=== PATIENT | male | born 1950 | race Caucasian/White ===

== ENCOUNTER 2017-09-11 10:57 | Inpatient (IN) | payer OTHER ==
[2017-09-11] MEDS ORDERED: Etomidate* 2 MG/ML 20 ML VIAL (40 MG) ONE (11:02)
[2017-09-11] MEDS ORDERED: Succinylcholine* 20 MG/ML 10 ML VIAL ONE (11:03)
[2017-09-11] MEDS ORDERED: Etomidate* 2 MG/ML 10 ML VIAL IV ONE (11:15)
[2017-09-11] MEDS ORDERED: Succinylcholine* 20 MG/ML 10 ML VIAL IV ONE (11:15)
[2017-09-11] MEDS ORDERED: Propofol* 100 ML ONE (11:20)
[2017-09-11] MEDS ORDERED: NS 0.9% 1000 ML* 1,000 ML IV ONE (11:21)
[2017-09-11] MEDS ORDERED: Piperacillin/Tazobac ADVAN(*) 3.375 GM in NS 0.9% 100 ML* 100 ML IVPB ONE (11:29)
[2017-09-11 11:48] LABS: Urine Appearance Cloudy; Urine Blood 1+ (Negative); Urine Color Yellow; Urine Ketones Negative (Negative); Urine Protein 2+(100 mg/dL) (Negative); Urine Specific Gravity 1.017 (1.010-1.030); Urine Urobilinogen Negative (Negative)
[2017-09-11] MEDS ORDERED: Propofol* 500 MG/50 ML BTL IV SCH (12:00)
[2017-09-11] MEDS ORDERED: Norepinephrine 16MCG/ML IVPRE* 4,000 MCG/250 ML BAG IV ONE ×2 (12:03→16:50)
--- NOTE | 2017-09-11 12:23 | RAD ---
HISTORY: Altered mental status COMPARISONS: None VIEWS: 1: frontal portable view of the chest at 11:56 AM FINDINGS: LINES AND TUBES: An endotracheal tube is noted with the tip overlying the trachea between at the level of the clavicles.. A gastric tube is noted, with the tip in the left upper quadrant in a prepyloric position.. CARDIOMEDIASTINAL SILHOUETTE: The cardiomediastinal silhouette is normal for portable technique. PLEURA: The costophrenic angles are sharp. No pleural abnormalities are noted. LUNG PARENCHYMA: The lungs are clear. ABDOMEN: The upper abdomen is clear. There is no subphrenic gas. BONES AND SOFT TISSUES: No bone or soft tissue abnormalities are noted. IMPRESSION: LINES AND TUBES ABOVE. NO ACTIVE CARDIOPULMONARY DISEASE.
[2017-09-11 12:53] LABS: ABS Basophils 0.1 10^3/ul (0-0.2); ABS Eosinophils 0 10^3/ul (0-0.6); ABS Lymphocytes 0.9 10^3/ul (1.0-4.8); ABS Monocytes 1.1 10^3/ul (0-0.8); ABS Neutrophils 12.1 10^3/ul (1.5-7.7); ABS Nucleated RBC 0.08 10^3/ul; Eosinophil % 0.1 % (0-6); Hematocrit 45 % (42-52); Lymphocyte % 6.3 % (25-47); Mean Corpuscular HGB Conc 31 g/dl (31-36); Mean Corpuscular Hemoglobin 31 pg (27-31); Mean Corpuscular Volume 99 fL (80-94); Mean Platelet Volume 9 um3 (7.4-10.4); Nucleated Red Blood Cells % 0.6; Platelet Count 155 10^3/ul (150-450); Red Blood Count 4.51 10^6/ul (4.0-5.4); Red Cell Distribution Width 16 % (10.5-15); White Blood Count 14.2 10^3/ul (3.5-10.8)
[2017-09-11] MEDS ORDERED: NS 0.9% 1000 ML* 2,000 ML IV ONE (12:57)
[2017-09-11] MEDS ORDERED: Vancomycin(*) 1,500 MG in NS 0.9% 250 ML* 250 ML IVPB ONE (13:05)
[2017-09-11] MEDS ORDERED: Naloxone* 0.4 MG/ML 10 ML VIAL ONE (13:38)
--- NOTE | 2017-09-11 14:04 | RAD ---
HISTORY: Unresponsive COMPARISONS: None TECHNIQUE: Multiple contiguous axial CT scans were obtained of the head without intravenous contrast. FINDINGS: HEMORRHAGE/INFARCT: There is no hemorrhage or acute infarct. MASSES/SHIFT: There is no mass or shift. EXTRA-AXIAL SPACES: There are no extra-axial fluid collections. SULCI AND VENTRICLES: The sulci and ventricles are normal in size and position for the patient's stated age. CEREBRUM: There are no focal parenchymal abnormalities. BRAINSTEM: There are no focal parenchymal abnormalities. CEREBELLUM: There are no focal parenchymal abnormalities. VESSELS: The vessels are grossly normal. PARANASAL SINUSES: There is mucosal thickening of the ethmoid air cells ORBITS: There is bilateral proptosis. BONES AND SOFT TISSUE: No bone or soft tissue abnormalities are noted. OTHER: None IMPRESSION: NO ACUTE INTRACRANIAL PATHOLOGY. BILATERAL PROPTOSIS.
--- NOTE | 2017-09-11 14:36 | RAD ---
INDICATION: Altered mental status abdominal distention and recent hiatal hernia repair, chest mass. COMPARISON: Comparison is made with a prior chest x-ray study from September 11, 2017. TECHNIQUE: A CT scan of the chest, abdomen and pelvis was performed without intravenous or oral contrast. Contiguous axial sections were obtained from the lung apices through the symphysis pubis. Images were reconstructed in the coronal and sagittal planes. FINDINGS: There is moderate to severe centrilobular emphysematous change most prominent in the upper lobes. There appears to be mild volume loss in the right lower lobe. There is a mass in the right hilum which is now well-defined on this noncontrast study measuring approximately 2.8 x 2.6 cm in size. There are slightly enlarged lymph nodes in the superior posterior portion of the mediastinum adjacent to the esophagus on the right side measuring up to 1.2 cm in size. There are multiple enlarged retrocrural lymph nodes measuring up to 1.3 cm in size. The heart is within normal limits in size. There are coronary artery calcifications present. No pericardial effusion is seen. The thoracic aorta is normal in caliber. The patient is status post intubation. There is a central venous catheter in the left side. The catheter tip projects in the right paratracheal region. There is a small amount of air within the anterior chest wall on both sides. The liver is slightly heterogeneous, mildly enlarged and decreased in attenuation consistent with fatty infiltration. There is a ill-defined 2.1 x 2.5 cm area of mild relative increased density in the anterior portion of the right hepatic lobe which may represent focal sparing versus a mass. The spleen is within normal limits in size. No calcific gallstones are noted. The pancreas appears to be within normal limits. There is a solid 3.0 x 2.7 cm mass within the left adrenal gland. The right and left adrenal gland appears normal. The kidneys are normal in size. No renal calculi or hydronephrosis is seen. There is a Rogers catheter within the urinary bladder which is decompressed. There appears to be mild bladder wall thickening present. The aorta is normal in caliber and there is moderate calcific plaque present. There are multiple large retrocrural lymph nodes and multiple enlarged retroperitoneal lymph nodes present in the upper and mid abdomen measuring up to 1.8 cm in transverse dimension. There is a nasogastric tube coiled within the stomach. The stomach, small and large bowel appear nondistended. There is mild descending and sigmoid diverticulosis. There is no evidence for diverticulitis or colitis. There is a periumbilical hernia containing fat. No free intraperitoneal air or fluid is seen. No significant focal osseous abnormality is seen. IMPRESSION: 1. RIGHT HILAR MASS. 2. ENLARGED MEDIASTINAL AND RETROCRURAL LYMPH NODES. 3. ENLARGED RETROPERITONEAL LYMPH NODES. 4. MILDLY ENLARGED HETEROGENEOUS LIVER WITH FATTY INFILTRATION AND POSSIBLE MASS VERSUS FOCAL SPARING. RECOMMEND A CONTRAST-ENHANCED CT OF THE CHEST, ABDOMEN AND PELVIS FOR FURTHER EVALUATION. 5. LEFT ADRENAL MASS. 6. MODERATE TO SEVERE EMPHYSEMATOUS CHANGE. 7. ANTERIOR ABDOMINAL WALL HERNIA CONTAINING FAT.
[2017-09-11] MEDS ORDERED: Norepinephrine VIAL* 4 MG in NS 0.9% 250 ML* 246 ML IV SCH (15:00)
[2017-09-11] MEDS ORDERED: methylPREDNISolone 125 MG* 2 ML VIAL IV ONE (15:34)
--- NOTE | 2017-09-11 15:34 | PN ---
Progress Note - Progress Note Date of Service: 09/11/17 Note: Arterial Line Procedure Note Indication: hypotension/shock Consent was emergent - Prior labs/history was reviewed prior to procedure - Full sterile precautions with chlorhexidine/full drapes/gowns/gloves utilized - right radial artery visualized with US - Vessel accessed with return of pulsatile blood. 1 attempt was made to access vessel. A cathetor was threaded over wire into vessel. Good arterial waveform was observed on monitor. - Arterial Catheter was sutured to site - Adequate hemostasis was achieved, EBL 1 cc No immediate complications noted, patient tolerated procedure well. Dressing applied to site. Gucci Frost MD Information Assurance Engineer (electronically signed)
--- NOTE | 2017-09-11 15:55 | HP ---
H&P (Free Text) History and Physical: History and Physical - Critical Care History Limitation: pt unresponsive, history from ER and son. HPI: 66y M pmhx of tobacco use, cocaine use in the past, COPD; patient last seen the day before admission (yesterday 09/10). Today found in his home unresponsive. EMS called. Patient found to have pinpoint pupils, given narcan without effect. Manually bagged, pulse was present. He was brought to ER, found to be hypoxic to 70s, tachycardic, with initial BP >110. He was unresponsive, intubated for airway protection. Shortly after hypotensive to 70s, given NS 3L bolus, started on levophed pressor support. Initial exam demonstrated pinpoint pupils, reactive to painful stimuli, cough+, gag+. Mottling noted on peripheral examination. No signs of trauma. Initial labs demonstrate only elevated WBC to 14, Cr 1.9. currently tachycardic but sinus rhythm. History from son obtained. He stated patient was arrogant, didnt tell them of anything. Did smoke marijuana but did cocaine in the past. No recent illness as per them. He was started on new medications by his primary care doctor. Noted medications they brought from home for patient. They also stated he may have Hep C also from what patients girlfriend told them. CT brain obtained no acute process CT abd/pelvis right hilar mass, mediastinal LN+, retroperitoneal LN+, enlarged liver with possible mass, left adrenal mass, mod-severe emphysematous changes, anterior abd hernia Currently in ICU now, on levophed. No sedation. Given etomidate/succ/prop for sedation during intubation only. Unchanged neuro exam. ROS: unable to obtain due to unresponsiveness. PMHx: tobacco use, marijuana use, past cocaine use, COPD, possible Hep C PSHx: unknwon Family History: unknown Social History: Alcohol-none as per family, Smoking-yes, Drug use-past cocaine use Allergies: Allergies Allergy/AdvReac Type Severity Reaction Status Date / Time Unable to Obtain Allergy Unverified 09/11/17 13:17 Home Medications: Albuterol HFA INHALER* [Ventolin HFA Inhaler*] 2 puff INH Q4H PRN 09/11/17 [ History Confirmed 09/11/17] Albuterol/Ipratropium NEB.SIVA* [Duoneb (Albuterol 2.5 MG/Ipratropium 0.5 MG)] 1 neb INH QID 09/11/17 [History Confirmed 09/11/17] Amoxicillin/Clavulanate TAB* [Augmentin TAB 875*] 875 mg PO Q12HR 09/11/17 [ History Confirmed 09/11/17] Benazepril (NF) [Lotensin (NF)] 10 mg PO DAILY 09/11/17 [History Confirmed 09/11] Budesonide/Formote 160/4.5(NF) [Symbicort 160/4.5 (NF)] 2 puff INH BID 09/11/17 [History Confirmed 09/11/17] Elastic Bandages & Supports [Abdominal Binder/Elastic/] 1 mis TOPICAL DAILY PRN 09/11/17 [History Confirmed 09/11/17] Tiotropium CAP.INH* [Spiriva CAP.INH*] 2 cap.inh INH DAILY 09/11/17 [History Confirmed 09/11/17] Tele: sinus rhythm, tachycardia Vitals: Vital Signs Temp 100.6 F 09/11/17 15:18 Pulse 105 09/11/17 15:18 Resp 26 09/11/17 15:18 BP 111/68 09/11/17 15:18 Pulse Ox 98 09/11/17 15:18 Intake & Output 09/10/17 09/11/17 09/11/17 18:59 06:59 18:59 Weight 198 lb 6.656 oz O2/Vent: AC 26/400/+10/60% Infusions: levophed at 7 mcg/min, 1/2 ns 75cc/hour Current Medications: Albuterol/Ipratropium (Duoneb (Albuterol 2.5 Mg/Ipratropium 0.5 Mg)) 1 neb INH Q4H ETELVINA Famotidine (Pepcid Iv*) 20 mg IV SLOW PU DAILY ETELVINA Heparin Sodium (Porcine) (Heparin Flush Picc/Ml/Cvc(*)) 0 ml FLUSH 0600,1800 ETELVINA PRN Reason: Protocol Norepinephrine Bitartrate 4 mg (/ Sodium Chloride) 250 mls @ 37.5 mls/hr IV Q6H ETELVINA PRN Reason: 10 MCG/MIN Last Admin: 09/11/17 15:54 Dose: 37.5 mls/hr Propofol (Diprivan*) 100 mls @ 5.4 mls/hr IV .(Initial Rate) ETELVINA; 10 MCG/KG/MIN PRN Reason: Protocol Piperacillin Sod/Tazobactam (Sod 3.375 gm/ Sodium Chloride) 100 mls @ 25 mls/ hr IVPB Q12H ETELVINA Sodium Chloride (Ns 0.45% 1000 Ml Bag*) 1,000 mls @ 75 mls/hr IV PER RATE ETELVINA Methylprednisolone Sodium Succinate (Solu-Medrol 125mg *) 60 mg IV Q8H ETELVINA Physical Exam: General: intubated, unresponsive; withdraws to painful stimuli. No apparent distress. Head: normocephalic, atraumatic HEENT: no pallor, no icterus, moist mucous membranes Neck: soft, supple, no jvd CVS: regular, tachycardic, no murmur Resp: diminished air entry bilaterally, scattered wheeze+, no rhales, no rhonchi Abdomen: soft, nondistended, bs+ Ext: pulses+, cool ext, 2+ bilateral LE edema. Skin: intact, no breakdown, no dryness Neuro: intubated, not sedated, unresponsive. Pinpoint pupils, reactive slightly. Cough+, gag+, corneal reflex+. Withdraws to painful stimuli. Reflexes brisk in all ext. Labs: Laboratory Results - last 24 hr 09/11/17 09/11/17 09/11/17 11:35 11:35 12:40 WBC RBC Hgb Hct MCV MCH MCHC RDW Plt Count MPV Neut % (Auto) Lymph % (Auto) Hubbard % (Auto) Eos % (Auto) Baso % (Auto) Absolute Neuts (auto) Absolute Lymphs (auto) Absolute Monos (auto) Absolute Eos (auto) Absolute Basos (auto) Absolute Nucleated RBC Nucleated RBC % Patient Temperature ABG pH ABG pH (Temp Correct) ABG pCO2 ABG pCO2 (Temp Corrct ABG pO2 ABG pO2 (Temp Correct ABG HCO3 ABG O2 Saturation ABG Base Excess Respiration Rate Ventilator Type Vent Mode FiO2 Inspiratory Time PEEP Pressure Support Pressure Control EPAP IPAP BiPAP Sodium 141 Potassium 4.9 Chloride 108 Carbon Dioxide 29 Anion Gap 4 BUN 27 H Creatinine 1.94 H Est GFR ( Amer) 45.0 Est GFR (Non-Af Amer) 35.0 BUN/Creatinine Ratio 13.9 Glucose 85 Lactic Acid Calcium 7.3 L Magnesium 2.0 Total Bilirubin 0.50 AST 58 H ALT 97 H Alkaline Phosphatase 46 Ammonia Total Creatine Kinase 75 Troponin I 0.16 H* B-Natriuretic Peptide Total Protein 5.8 L Albumin 3.0 L Globulin 2.8 Albumin/Globulin Ratio 1.1 TSH 1.51 Urine Color Yellow Urine Appearance Cloudy Urine pH 5.0 Ur Specific Percival 1.017 Urine Protein 2+(100 mg/dl) H Urine Ketones Negative Urine Blood 1+ H Urine Nitrate Negative Urine Bilirubin Negative Urine Urobilinogen Negative Ur Leukocyte Esterase Negative Urine WBC (Auto) 3+(>20/hpf) H Urine RBC (Auto) 2+(6-10/hpf) H Urine Bacteria 1+ H Hyaline Casts Present H Urine Glucose Negative Salicylates < 2.50 Urine Opiates Screen None detected Acetaminophen < 15 Ur Barbiturates Screen None detected Ur Phencyclidine Scrn None detected Ur Amphetamines Screen None detected U Benzodiazepines Scrn None detected Urine Cocaine Screen Presumptive positive H U Cannabinoids Screen Presumptive positive H Serum Alcohol < 10 09/11/17 09/11/17 09/11/17 12:40 12:40 12:40 WBC 14.2 H RBC 4.51 Hgb 14.0 Hct 45 MCV 99 H MCH 31 MCHC 31 RDW 16 H Plt Count 155 MPV 9 Neut % (Auto) 85.1 H Lymph % (Auto) 6.3 L Hubbard % (Auto) 7.9 Eos % (Auto) 0.1 Baso % (Auto) 0.6 Absolute Neuts (auto) 12.1 H Absolute Lymphs (auto) 0.9 L Absolute Monos (auto) 1.1 H Absolute Eos (auto) 0 Absolute Basos (auto) 0.1 Absolute Nucleated RBC 0.08 Nucleated RBC % 0.6 Patient Temperature ABG pH ABG pH (Temp Correct) ABG pCO2 ABG pCO2 (Temp Corrct ABG pO2 ABG pO2 (Temp Correct ABG HCO3 ABG O2 Saturation ABG Base Excess Respiration Rate Ventilator Type Vent Mode FiO2 Inspiratory Time PEEP Pressure Support Pressure Control EPAP IPAP BiPAP Sodium Potassium Chloride Carbon Dioxide Anion Gap BUN Creatinine Est GFR ( Amer) Est GFR (Non-Af Amer) BUN/Creatinine Ratio Glucose Lactic Acid 0.7 Calcium Magnesium Total Bilirubin AST ALT Alkaline Phosphatase Ammonia 53 Total Creatine Kinase Troponin I B-Natriuretic Peptide 333 H Total Protein Albumin Globulin Albumin/Globulin Ratio TSH Urine Color Urine Appearance Urine pH Ur Specific Percival Urine Protein Urine Ketones Urine Blood Urine Nitrate Urine Bilirubin Urine Urobilinogen Ur Leukocyte Esterase Urine WBC (Auto) Urine RBC (Auto) Urine Bacteria Hyaline Casts Urine Glucose Salicylates Urine Opiates Screen Acetaminophen Ur Barbiturates Screen Ur Phencyclidine Scrn Ur Amphetamines Screen U Benzodiazepines Scrn Urine Cocaine Screen U Cannabinoids Screen Serum Alcohol 09/11/17 14:20 WBC RBC Hgb Hct MCV MCH MCHC RDW Plt Count MPV Neut % (Auto) Lymph % (Auto) Hubbard % (Auto) Eos % (Auto) Baso % (Auto) Absolute Neuts (auto) Absolute Lymphs (auto) Absolute Monos (auto) Absolute Eos (auto) Absolute Basos (auto) Absolute Nucleated RBC Nucleated RBC % Patient Temperature Not Reportable ABG pH 7.11 L* ABG pH (Temp Correct) Not Reportable ABG pCO2 89 H* ABG pCO2 (Temp Corrct Not Reportable ABG pO2 385 H ABG pO2 (Temp Correct Not Reportable ABG HCO3 21.8 ABG O2 Saturation 98.8 H ABG Base Excess -3.8 L Respiration Rate 16 Ventilator Type 400 Vent Mode Not Reportable FiO2 100 Inspiratory Time 1.0 PEEP 8 Pressure Support Not Reportable Pressure Control Not Reportable EPAP Not Reportable IPAP Not Reportable BiPAP Not Reportable Sodium Potassium Chloride Carbon Dioxide Anion Gap BUN Creatinine Est GFR ( Amer) Est GFR (Non-Af Amer) BUN/Creatinine Ratio Glucose Lactic Acid Calcium Magnesium Total Bilirubin AST ALT Alkaline Phosphatase Ammonia Total Creatine Kinase Troponin I B-Natriuretic Peptide Total Protein Albumin Globulin Albumin/Globulin Ratio TSH Urine Color Urine Appearance Urine pH Ur Specific Percival Urine Protein Urine Ketones Urine Blood Urine Nitrate Urine Bilirubin Urine Urobilinogen Ur Leukocyte Esterase Urine WBC (Auto) Urine RBC (Auto) Urine Bacteria Hyaline Casts Urine Glucose Salicylates Urine Opiates Screen Acetaminophen Ur Barbiturates Screen Ur Phencyclidine Scrn Ur Amphetamines Screen U Benzodiazepines Scrn Urine Cocaine Screen U Cannabinoids Screen Serum Alcohol Imaging: Reviewed CT brain no acute findings CT abd/pelvis/chest right hilar mass, mediastinal LN+, retroperitoneal LN+, enlarged liver with possible mass, left adrenal mass, mod-severe emphysematous changes, anterior abd hernia cxr 09/11 no acute process noted, hilar fullness+, no congestion/infiltrate. Assessment: 66y M pmhx of tobacco use, cocaine use in the past, COPD; patient last seen the day before admission (yesterday 09/10). Today found in his home unresponsive. EMS called. Patient found to have pinpoint pupils, given narcan without effect. Manually bagged, pulse was present. He was brought to ER, found to be hypoxic to 70s, tachycardic, with initial BP >110. He was unresponsive, intubated for airway protection. Shortly after hypotensive to 70s, given NS 3L bolus, started on levophed pressor support. -Encephalopathy, metabolic/toxic vs ischemic vs global anoxic/hypoxic injury -Acute Hypercapneic and hypoxic respiratory failure; intubated 09/11 -Possible Acute COPD exacerbation -r/o underlying sepsis -Shock, distributive vs septic vs neurogenic -Renal insufficiency, acute? -Right lung hilar mass with adenopathy -Left adrenal mass -Substance abuse, cocaine+, marijuana+ Plan: Neuro- encephalopathy, multifactorial. CT negative. r/o other brain stem lesion. MRI now. some concern to rule out brain stem lesion. EEG now for r/o of subclinical seizure activity. So far appears negative at bedside. No improvement with narcan. May be hypercapnea related also after reviewed ABG now. Neurochecks. Off sedation, and will hold sedation. fall prec. Could this also be post ictal state? hypoxic injury from prolonged resp arrest/hypoxia? ammonia normal, salicylate neg. substance abuse history with cocaine+ urine drug screen; any synthetic drug use also? marijuana laced with other opiate like substances not appearing on drug screens? neurology consult. CVS- hypotensive, unclear etiology. ECHO being done. noted wbc elevation, no clear infectious source. distributive? hypovolemic? IVF 3L given, on levophed now. Monitor urine output. Empiric abx coverage. Mottling slowly improving. maintain MAP>65. Sinus tachy, regular. Resp- intubated. noted wheezing now. ABG with acute hypercapnea. May be some copd exaccerbation. This could have been a respiratory arrest from severe copd exaccerbation, hypoxia and causing his encephalopathy. Solumedrol 125mg iv x1 now, solumedrol 40mg iv q8h. Bronchodilators q4h RTC. Empiric Abx coverage. influenza swab to be sent also. Repeat ABG in 1 hour; vent settings made. peep at 10 now, noted air trapping and autopeep. Oxygenation improved. Noted right hilar mass and adenopathy, will need pulm w/u for possible malignancy. ID- wbc 14. temp rising slowly, now 100.1. blood cultures sent. sputum cultures if able. Empiric zosyn and vanco. Influenza swab to be sent. GI- NPO for now. GI prophylaxis. Renal- renal insuff. Acute? chronic? boles cathetor for strict i/o measurement. IVF 1/2NS infusion 75cc/hr. Maintain perfusion pressure with pressors. Urinalysis abnormal, send urine culture. Heme- hg stable. plt okay. no bleeding noted. DVT prophylaxis with SCDS. Chemical proph once bleeding ruled out. Endo- send hba1c, send tsh. Musculsk- pressure ulcer prophylaxis. bedrest. Wounds- none Nutrition- NPO for now DVT prophylaxis: SCDs GI prophylaxis: Pepcid iv Central Line: left IJ 09/11 Arterial Line: right radial 09/11 Boles Cathetor: yes Disposition: admit to icu for respiratory failure, encephalopathy expected length of stay >2 midnights. Code Status: full code Total Critical Care time is 60 minutes, excluding procedures/teaching Gucci Frost MD Motorcycle Racer (Electronically Signed)
[2017-09-11] MEDS ORDERED: NS 0.45% 1000 ML BAG* 1,000 ML IV SCH (16:00)
[2017-09-11] MEDS ORDERED: Terbutaline INJ* 1 MG/ML VIAL SUBCUT ONE (16:18)
[2017-09-11 17:39] LABS: INR 0.99 (0.77-1.02)
--- NOTE | 2017-09-11 19:00 | ECHO ---
Patient: JULES MARTINEZ Rec#: [id number] : 1950 Date: 09/11/2017 Age: 66y Height: 177.8 cm / 70.0 in Weight: 89.81 kg / 197.9 lbs Sex: M BSA: 2.08 Room#: ICU 12 Admit Date#: 09/11/2017 Type: Inpatient Referring: Gucci Frost Reading: Carloz Mensah MD Water Sponger: Mavis Veras RDCS,RDMS CC: Estefany Silva MD Transthoracic Echocardiogram Indication: Hypotension, Abnormal EKG BP: 96/38 HR: 126 Rhythm: Tachycardia Findings History: Smoker Technical Comments: The study quality is poor. The study is technically limited due to patient being intubated and on a ventilator. Left Ventricle: The left ventricular chamber size is decreased. Mild to moderate concentric left ventricular hypertrophy is observed. The left ventricle appears hyperdynamic. The estimated ejection fraction is greater than 65%. There is an E to A reversal in the mitral valve flow pattern suggestive of diastolic dysfunction. Left Atrium: The left atrial chamber size is normal. Right Ventricle: The right ventricle is mildly dilated. The right ventricular global systolic function is mildly reduced. Right Atrium: The right atrium is slightly dilated. Aortic Valve: There is no evidence of aortic valve thickening. Systolic excursion of the aortic valve is normal. There is no evidence of aortic regurgitation. There is no evidence of aortic stenosis. Mitral Valve: The mitral valve leaflets appear normal. There is no evidence of mitral regurgitation. There is no evidence of mitral stenosis. Tricuspid Valve: The tricuspid valve leaflets are normal. There is trace tricuspid regurgitation. There is evidence that pulmonary hypertension may be underestimated. Pulmonic Valve: There is no evidence of pulmonic valve thickening. There is no evidence of pulmonic regurgitation. Pericardium: There is no significant pericardial effusion. Aorta: The aortic root appears normal. The aortic arch is not well visualized. Pulmonary Artery: The main pulmonary artery is not well visualized. Venous: Unable to accurately comment on the size collapsibility of the IVC as the patient in known to be on mechanical ventilation. Conclusions The study quality is poor. The study is technically limited due to patient being intubated and on a ventilator. In general the images are suboptimal for accurate assessment. The left ventricular chamber size is decreased. Mild to moderate concentric left ventricular hypertrophy is observed. The left ventricle appears hyperdynamic. The estimated ejection fraction is greater than 65%. The right ventricle is mildly dilated. The right ventricular global systolic function is mildly reduced. The right atrium is slightly dilated. There is trace tricuspid regurgitation. No reports of prior studies are offered for comparison. Measurements Name Value Normal Range RVIDd (AP) 2D 3.4 cm (0.9 - 2.6) RVDdMajor (2D) 3.9 cm (2.2 - 4.4) RAd ISD 4CH 5.2 cm (3.4 - 4.9) RA (A4C)W 4.4 cm (2.9 - 4.6) IVSd (2D) 1.4 cm (0.6 - 1) LVPWd (2D) 1.4 cm (0.6 - 1) LVIDd (2D) 3.2 cm (3.6 - 5.4) LVIDs (2D) 2.3 cm - LV FS (2D) 28 % (25 - 45) Aortic Annulus 2 cm (1.4 - 2.6) Ao root diameter (2D) 3 cm (2.1 - 3.5) Ascending Ao 2.8 cm (2.1 - 3.4) LA dimension (AP) 2D 3.7 cm (2.3 - 3.8) LAd ISD 4CH 5.2 cm (2.9 - 5.3) LA ISD 4CH W 2.6 cm (2.5 - 4.5) Name Value Normal Range LA ESV SP 4CH (A/L) 23.21 ml - LA ESV SP 2CH (A/L) 70.09 ml - LA ESV BP (A/L) 42.03 ml - LA ESV BP (A/L) index 20 ml/m2 - LA ESV SP 4CH (MOD) 21.33 ml - LA ESV SP 2CH (MOD) 64.93 ml - Name Value Normal Range MV E-wave Vmax 0.6 m/sec - MV deceleration time 110 msec - MV A-wave Vmax 0.8 m/sec - MV E:A ratio 0.7 ratio - LV septal e' Vmax 0.05 m/sec - LV lateral e' Vmax 0.06 m/sec - LV E:e' septal ratio 9 ratio - LV E:e' lateral ratio 10 ratio - Name Value Normal Range AV Vmax 1.3 m/sec - AV VTI 20.2 cm - AV peak gradient 7 mmHg - AV mean gradient 4.3 mmHg - LVOT Vmax 1.2 m/sec - LVOT VTI 19 cm - LVOT peak gradient 6 mmHg - LVOT mean gradient 3 mmHg - Name Value Normal Range TR Vmax 2.6 m/sec - TR peak gradient 27 mmHg - RAP 15 mmHg - RVSP 42 mmHg - IVC diameter 2.8 cm - Name Value Normal Range PV Vmax 0.6 m/sec - PV peak gradient 1.4 mmHg -
[2017-09-11] MEDS: Albuterol/Ipratropium NEB.SOL* Albuterol 2.5 MG/Ipratropium 0.5 MG 3 ML INH SCH ×3 (19:08→23:27)
--- NOTE | 2017-09-11 20:57 | CONS ---
CONSULTATION REPORT: DATE OF CONSULT: 09/11/17 LOCATION: He is currently in ICU, bed 12. ATTENDING PHYSICIAN: Dr. Gucci Frost. PRIMARY CARE PHYSICIAN: Dr. Estefany Silva. REASON FOR CONSULT: Altered mental status. HISTORY OF PRESENT ILLNESS: The patient is unable to provide any history. There is no significant history in the chart. Most of my history was obtained speaking with the attending physician. Family was not available at the time that I saw him, but will in an attempt to find out more information. Presently what is known, he was apparently seen normal yesterday at some point. Today, he was found down in his place. It is unclear how long he was down. When he was found, he was apparently hypoxic. When EMS arrived, they did bag him on the way to the ER. In the ER, OG was placed. He was given Narcan with no improvement in his symptoms. Levophed was started for hypotension and titrated as necessary. He had initially a dose of Diprivan given as well as some succinylcholine in order to intubate him. Central line was attempted, but was unsuccessful. He was noted in the ER that he was having some response to pain, but was largely unresponsive otherwise. He apparently has a history of hepatitis C. In addition, he has a history of drug use including marijuana and cocaine use. He did test positive for both in the ER. Initial lab work also showed an elevated white count of 14.2 with 85.1 neutrophils, 6.3 lymphocytes. His creatinine on admission was 1.94, calcium was 7.3. Elevated liver enzymes of AST of 58, ALT of 97. Troponin was 0.16. His BNP was 333. TSH of 1.51. Blood gas showed pH of 7.11, PCO2 of 89, PO2 of 385, O2 saturation of 98.8. In the ER, a head CT was done, reviewed, showed no bleeding, no obvious intracranial abnormalities were appreciated, no significant hydrocephalus. Chest x-ray was done. No active cardiopulmonary disease. Finally a chest, abdomen, and pelvis CT was done, which showed right hilar mass, enlarged mediastinal and retrocrural lymph nodes, enlarged retroperitoneal lymph nodes, mildly enlarged heterogeneous liver with fatty infiltration and possible mass versus focal sparing, contrast-enhanced CT of the chest, abdomen, and pelvis recommended. Left adrenal mass noted, [id number] emphysematous changes , anterior abdominal wall hernia containing fat. In the ICU, he remains unresponsive. He is currently on Levophed for pressure support. He is intubated and there has been no significant improvement in his symptoms. EEG is at the bedside, preliminary reading shows no evidence of status. PAST MEDICAL HISTORY: As noted above. PAST SURGICAL HISTORY: Unknown. MEDICATIONS: His medications at home what is known is that he takes tiotropium and albuterol/ipratropium inhalers as well as Symbicort inhaler. It was listed that he also takes benazepril 10 mg p.o. q. day. Of note, he had testing done back in January of 2017, which showed Lyme positive. It is unclear whether he received any treatment at that time. ALLERGIES: Were unable to obtain. FAMILY HISTORY: Unknown. SOCIAL HISTORY: Apparently, he lives by himself. Drug use as noted above. He also smokes tobacco. Alcohol use is unknown. REVIEW OF SYSTEMS: In 14-organ systems cannot be obtained because of his mental status. PHYSICAL EXAM: Vital Signs: Temperature of 100.6, heart rate of 102 to 105, he is ventilated, O2 saturation 98%, and blood pressure 98/67 to 111/68, he is on pressor. General: In general, he is a well-developed, well-nourished gentleman lying in his hospital bed. He is intubated. He is unresponsive. HEENT : Normocephalic, atraumatic. Sclerae are anicteric. Mucous membranes are moist. ET tube in place. Neck: There are no carotid bruits. Chest: He has some diffuse wheezes bilaterally. Cardiovascular: Regular rate and rhythm. Abdomen: Obese. Extremities: He has mottling of his skin, some cyanosis in his toes bilaterally. On neurologic exam, he is largely unresponsive. He has very weak corneal reflexes, did react to nasal swab. He does gag with deep suction and cough. He has some minimal withdrawal to pain with some grimacing in all 4 extremities. DTRs were 2+ at the patellae bilaterally, trace at the ankles bilaterally, slightly upgoing toes on the left, equivocal on the right. DTRs in the upper extremities were 2+ and symmetric. The patient did not respond to sternal rub or supra-palpebral pressure. There is no spontaneous motor movement at this time. No tremors or seizure like activity noted. Doll' s eye, he was weakly positive. He did not blink to threat. DIAGNOSTIC STUDIES/LAB DATA: Lab work as noted above. In addition, UA showed 2 + protein, 1+ blood, 3+ whites, 2+ rbc's, 1+ bacteria, negative nitrites and esterase. Tox was positive for cocaine and cannabinoids. Serum alcohol less than 10. Acetaminophen less than 15. Salicylates less than 2.5. CT scan as noted above. ASSESSMENT AND PLAN: 1. Mr. Marin is a 66-year-old gentleman with a known history of hepatitis C with possibly hypertension suggested by his medicine, history of chronic obstructive pulmonary disease, history of tobacco use, also drug use tested positive for cannabinoids and cocaine, was apparently seen normal yesterday, was found down this morning, brought to the ER, hemodynamically unstable, was given Narcan with no response. Subsequently, intubated and put on pressors and he has remained largely unresponsive since his admission. There is no known seizure history and no reported seizure activity. The differential here would include seizures, either postictal state or status, but EEG shows no evidence of status at this point. We will continue to monitor him closely, watch for any seizure activity, consider propofol. 2. Anoxic injury. When he was found, his saturations were low. There was apparently no cardiopulmonary arrest, but certainly if he had been hypoxic for quite some time, he could have suffered more of a global hypoxic injury. Supportive care with close control of his respiratory status. 3. Sepsis is a possibility given his blood pressure and respiratory issues, aspiration pneumonia is a possibility, urosepsis is a possibility. He has been given some antibiotics and I refer to the primary ICU team regarding additional antibiotic use. My suspicion for an underlying encephalitis, meningitis is low at this point. I do not think a lumbar puncture would be of high yield, but we may consider it in the near future. 4. There is a possibility of stroke, specifically a brain stem stroke might cause symptoms like this. Plan is to get an MRI when he is stable to look for evidence of stroke, in the meantime supportive care. 5. Hilar mass. Unclear whether this is an incidental finding but certainly this needs to worked up in the near future. I do not suspect that it is directly related to his initial presentation today, but cancer/metastatic disease is certainly within the differential. 6. Drug use. It is quite possible that he could have taken something that does not show up on routine testing. At this point again, I would recommend conservative care, airway protection. Blood pressure support is necessary and give him time given his history of drug use is certainly a concern. 7. Lyme positivity in the past. My suspicion that this is related to his current presentation is low. Again, my suspicion for central nervous system infection is low at this point. I will continue to follow him and make further recommendations. At this point, the etiology of his symptoms remains cryptic. Thank you for the opportunity to participate in his care. [id number]/[facility] #: [id number] ESE
[2017-09-11] MEDS: Piperacillin/Tazobac ADVAN(*) 3.375 GM in NS 0.9% 100 ML* 100 ML IVPB SCH (22:06)
[2017-09-11] MEDS: Propofol* 100 ML IV SCH (22:06)
[2017-09-11] MEDS: Norepinephrine 16MCG/ML IVPRE* 4,000 MCG/250 ML BAG IV SCH (22:07)
[2017-09-12] MEDS: methylPREDNISolone 125 MG* 2 ML VIAL IV SCH ×3 (01:41→16:09)
[2017-09-12] MEDS: Propofol* 100 ML IV SCH ×7 (01:41→23:02)
[2017-09-12] MEDS: Norepinephrine 16MCG/ML IVPRE* 4,000 MCG/250 ML BAG IV SCH ×2 (01:41→08:07)
[2017-09-12] MEDS: Albuterol/Ipratropium NEB.SOL* Albuterol 2.5 MG/Ipratropium 0.5 MG 3 ML INH SCH ×6 (03:23→23:42)
--- NOTE | 2017-09-12 04:27 | EEG ---
ELECTROENCEPHALOGRAPHY: DATE OF STUDY: 09/11/17 - ROOM #ICU-12 LOCATION: The patient is an inpatient. ORDERING PHYSICIAN: Dr. Frost. HISTORY: This is a 66-year-old man who was found unresponsive at his home today. He was subsequently intubated in the ER. He was last seen to be normal sometime yesterday. He has a history of hepatitis C as well as cocaine and marijuana use. He has been having some upper body shaking movements and has not appeared to wake up despite no longer being on sedation while on the ventilator. EEG is requested to evaluate for status epilepticus. REPORT: The background failed to demonstrate the usual anterior to posterior voltage and frequency gradients expected of the waking or sleep background. The background consisted of diffuse, mixed frequency, polymorphic slowing in the 2 to 5 Hz range. The EEG was shown to be spontaneously reactive with emergence of some increased muscle artifact as well as some faster frequency activity. However, there were no evident anterior to posterior gradients noted during these times. During more sedated periods, there was some spindle-like activity noted over the bilateral frontocentral regions. The patient was noted to have a few episodes of tightening of his body with some tremoring and adduction of his shoulders. There was no EEG correlate to this activity. Throughout the recording, there were no epileptiform discharges or focal features. IMPRESSION: This is an abnormal EEG due to the lack of the expected background organization and diffuse mixed frequency slowing. However, the EEG retains reactivity. These findings are consistent with a diffuse, nonspecific encephalopathy of a moderate degree. There are no epileptiform abnormalities. Episodes of body tightening and shaking are nonepileptic in nature. [id number]/[facility] #: [id number] [facility]
[2017-09-12 06:20] LABS: Hematocrit 44 % (42-52); Hemoglobin 14.2 g/dl (14.0-18.0); Mean Corpuscular HGB Conc 33 g/dl (31-36); Mean Corpuscular Hemoglobin 31 pg (27-31); Mean Corpuscular Volume 96 fL (80-94); Mean Platelet Volume 9 um3 (7.4-10.4); Platelet Count 181 10^3/ul (150-450); Red Blood Count 4.55 10^6/ul (4.0-5.4); Red Cell Distribution Width 15 % (10.5-15); White Blood Count 14.2 10^3/ul (3.5-10.8)
[2017-09-12 06:41] LABS: EGFR Non-African American 38.2 (>60)
[2017-09-12] MEDS: Famotidine IV* 10 MG/ML 2 ML (20 mg) IV SLOW PU SCH (07:46)
--- NOTE | 2017-09-12 08:12 | RAD ---
HISTORY: Sepsis COMPARISONS: September 11, 2017 VIEWS: 1: frontal portable view of the chest at 5:55 AM. The patient is obliqued to the left. FINDINGS: LINES AND TUBES: An endotracheal tube is noted with the tip overlying the trachea between the clavicles and the lory. A gastric tube is noted. The tip is not well visualized secondary to technique. A left internal jugular venous catheter is noted with the tip overlying the expected location of the superior vena cava. CARDIOMEDIASTINAL SILHOUETTE: The cardiomediastinal silhouette is normal for portable technique. PLEURA: The costophrenic angles are sharp. No pleural abnormalities are noted. LUNG PARENCHYMA: The lungs are clear. ABDOMEN: The upper abdomen is clear. There is no subphrenic gas. BONES AND SOFT TISSUES: No bone or soft tissue abnormalities are noted. IMPRESSION: LINES AND TUBES ABOVE. NO ACTIVE CARDIOPULMONARY DISEASE.
[2017-09-12] MEDS ORDERED: Famotidine IV * 20 MG in NS 0.9% 100 ML* 100 ML IVPB SCH (09:00)
--- NOTE | 2017-09-12 09:21 | PN ---
PROGRESS NOTE: DATE OF PROGRESS NOTE: 09/12/17. CURRENT LOCATION: ICU 12, bed 1. SUBJECTIVE: Overnight, the patient continued to need Levophed for pressor support. His CVP did eleva te and he had some fluid adjustments made with improvement. He was placed on propofol, which was tit rated up overnight due to some agitation. He was kicking and flailing at times. The nurse at the [facility] stated that at one point when he was off propofol, he did squeeze fingers, he was moving his le gs more than his arms. He remains ventilated and this morning remains on Levophed 16 mcg. He was feb rile last night to 101.3 but the blankets were removed and his temperature slowly normalized. They w ere able to bring his O2 down to 50%. On propofol, he has no spontaneous movement and is not respons ishmael. This morning, we took him off of propofol. He was off for about 10 minutes with little change in his examination as noted below. No other new issues overnight. There was some supplemental histo ry per the nurse, apparently someone spoke with him the night before, and at that time he was noted t o be confused and not speaking correctly. He was found the next day unresponsive. It appears that he does have some lung issues. He is on inhalers. He is on prednisone. He is on antibiotic, but his detailed medical history remains unknown at this point. On physical examination, vital signs, temp of 98.4 this morning, has been afebrile since 1 o'clock th is morning. Heart rate of 92 to 100, respiratory rate of 28. O2 sat 96%. Blood pressures, arterial blood pressure 89/53 to 93/54 to 103/58 to 98/56 on Levophed. CVP 12, 13, 12 and 12. In general, everette parker is a well nourished, well developed gentleman, lying in his hospital bed. He is unresponsive, off propofol. He had pinpoint pupils that are nonreactive. No corneals. Did not cough this morning, bu t the nurse states that he was coughing overnight with deep suction. He did not respond to loud stim julito or painful sternal rub, suprapalpebral pressure. He did not withdraw to pain in his arms. He ford d some minimal withdrawal to pain in his legs bilaterally. DTRs in the patella were 2+. He had one beat of clonus bilaterally at the lower extremities. He had equivocal Babinski's bilaterally. DTRs in the upper extremities were absent bilaterally. He has no other spontaneous movements. No seizure like activity. No tremors or twitching noted. Doll's eye was negative. Studies, he had an EEG yesterday, which showed diffuse slowing with the lack of expected background o rganization; however, the EEG retains reactivity. Findings are consistent with diffuse nonspecific e ncephalopathy of a moderate degree. No epileptiform activities. He did have some body tightening an d shaking at times which were nonepileptic in nature. Transthoracic echocardiogram yesterday was poo r study, technically difficult. Images were suboptimal for accurate assessment. Estimated ejection f raction is greater than 65%. Left ventricle appears hyperdynamic. Mild to moderate concentric left ventricular hypertrophy. Right ventricle is mildly dilated. Right ventricle global systolic functio n is mildly reduced. Right atrium is slightly dilated. Trace tricuspid regurg. No prior studies. Chest x-ray is pending. Lab work includes white count of 14.2 this morning, MCV of 96. Otherwise normal. Blood gas this morn ing: pH is 7.21, PCO2 66, PO2 136. O2 saturation 98.8%. Chemistry this morning, complete metabolic profile: Creatinine 1.8, BUN of 35, creatinine is improved from yesterday. Hemoglobin A1c of yester day 5.7. Glucose of 191, calcium 7.7. Troponin peaked at 1.66. This morning is 1.20. MRI was cance led yesterday due to the patient's worsening condition. ASSESSMENT AND PLAN: Mr. Marin is a 66-year-old gentleman whose medical history is largely unknown, but appears to have some respiratory issues including chronic obstructive pulmonary disease. Per re port from the nurse, he was apparently on the phone the night before, he was found confused. He was found down unresponsive the next day. He does have a history of heavy tobacco use. He has a history of cocaine use and was positive on admission, history of cannabis use and was positive on admission. Overnight he continues to require Levophed for pressor support. Temperatures are better. He was pl aced on propofol for agitation and off propofol this morning, is unresponsive, has minimal withdrawal to pain in the lower extremities. Doll's negative. Pinpoint pupils, nonreactive. Appears to be sl ightly worse from a neurologic perspective. EEG yesterday was negative for any seizure like activity . 1. Encephalopathy. At this point, my working diagnosis is that he may have suffered an anoxic injur y, possibly related to hypoxia. He has a known history of lung disease. Someone was speaking with him the night before and it is possible that he may have been hypercapnic or hypoxic as he was confus ed. Depending on how long he was down with low saturation, he could have had diffuse injury to his b rain. Temperature is better. White count is stable. My suspicion for underlying infectious cause i s low. Postictal is another possibility, although EEG showed no seizure like activity despite some b huey twitching and jaw clenching yesterday. My suspicion for postictal state is low and he does not a ppear to be in subclinical status. Certainly with a history of drug use, this could be some intoxica tion. With his liver disorder, it could be that he is slow to clear, but he does not appear to be any better today. Possibility of brainstem stroke remains. Obviously we would like an MRI, but he is t oo unstable at this point for further studies. Consider repeating a CT scan in 24 hours to look for a ny evidence of evolving stroke. From a respiratory status, he is intubated. His lung studies are be tter, but he remains dependent on the ventilator. He is on broad spectrum empiric antibiotic coverag e. 2. Infectious Disease. Again white count is stable. He was afebrile overnight, but that is improve d. Blood cultures are pending. He is on empiric Zosyn and vanc. 3. Renal insufficiency. His creatinine seems to be slightly better. Continue fluids per primary tea m. 4. Cardiovascular: Remains hypotensive on pressor support. Defer to primary team. He is on empiri c coverage for sepsis. I will continue to follow him and make further recommendations as necessary. We will follow with serial examinations and consider repeat CT scan soon. [id number]/[facility] #: [id number]
[2017-09-12] MEDS: Piperacillin/Tazobac ADVAN(*) 3.375 GM in NS 0.9% 100 ML* 100 ML IVPB SCH ×2 (09:45→22:49)
[2017-09-12] MEDS ORDERED: fentaNYL* 50 MCG/ML 2 ML VIAL (100 MCG VIAL) ONE (10:46)
[2017-09-12] MEDS ORDERED: fentaNYL* 50 MCG/ML 2 ML VIAL (100 MCG VIAL) IV SLOW PU PRN (10:47)
[2017-09-12] MEDS: fentaNYL* 50 MCG/ML 2 ML VIAL (100 MCG VIAL) IV SLOW PU SCH (10:48)
[2017-09-12] MEDS: Dexmedetomidine* 400 MCG in NS 0.9% 100 ML* 96 ML IVPB SCH ×2 (11:34→21:12)
[2017-09-12] MEDS ORDERED: NS 0.9% 250 ML* 246 ML with Norepinephrine VIAL* 4 MG IV SCH ×2 (13:00)
[2017-09-12] MEDS: Chlorhexidine MOUTHWASH 0.12%* 15 ML UDC TOPICAL SCH ×3 (13:55→21:11)
[2017-09-12] MEDS: Heparin VIAL(*) 5000 UNITS/ML VIAL (FIVE THOUSAND) SUBCUT SCH ×2 (13:56→22:45)
--- NOTE | 2017-09-12 14:25 | PN ---
Progress Note - Progress Note Date of Service: 09/12/17 Note: Progress Note - Critical Care 24 hour events: -remaisn intubated; awoke more overnight; on sedation -some increased pressor requirements after he woke up -decreasing today though -family updated today -no much change on vent overnight from ABGs Tele: sinus rhythm, more abel with precedex now. Vitals: Vital Signs Temp 99.1 F 09/12/17 14:00 Pulse 83 09/12/17 14:00 Resp 23 09/12/17 14:03 BP 90/59 09/12/17 13:30 Pulse Ox 97 09/12/17 14:00 Intake & Output 09/11/17 09/12/17 09/12/17 18:59 06:59 18:59 Intake Total 2357 707.6 Output Total 1050 600 Balance 1307 107.6 Weight 198 lb 213 lb 13.574 oz Intake: IV Fluids 1127 59 1/2 NS 799 33 KVO w/meds 142 kvo 186 26 IVPB 100 zosyn 100 Medicated IV 1230 548.6 CC - Norepinephrine/ 786 314 Levophed precedex 28.6 propofol 444 206 Output: NG Tube Drainage Amount 50 Boles 1050 550 O2/Vent: PCV 25/7, tv 450-500, on 45% fio2. Infusions: levophed at 5 mcg/min, 1/2 ns 75cc/hour Current Medications: Albuterol/Ipratropium (Duoneb (Albuterol 2.5 Mg/Ipratropium 0.5 Mg)) 1 neb INH Q4H [facility]EL[facility] Last Admin: 09/12/17 11:09 Dose: 1 neb Chlorhexidine Gluconate (Peridex Mouth Wash 0.12%*) 15 ml TOPICAL Q4H [facility] Last Admin: 09/12/17 13:55 Dose: 15 ml Famotidine (Pepcid Iv*) 20 mg IV SLOW PU DAILY [facility] Last Admin: 09/12/17 07:46 Dose: 20 mg Fentanyl Citrate (Fentanyl*) 50 mcg IV SLOW PU ONCE [facility] Last Admin: 09/12/17 10:48 Dose: 50 mcg Fentanyl Citrate (Fentanyl*) 25 mcg IV SLOW PU Q1HR PRN PRN Reason: agitation Heparin Sodium (Porcine) (Heparin Flush Picc/Ml/Cvc(*)) 0 ml FLUSH 0600,1800 [facility] PRN Reason: Protocol Last Admin: 09/12/17 06:05 Dose: Not Given Heparin Sodium (Porcine) (Heparin Vial(*)) 5,000 units SUBCUT Q8HR [facility] Last Admin: 09/12/17 13:56 Dose: 5,000 units Propofol (Diprivan*) 100 mls @ 5.4 mls/hr IV .(Initial Rate) ETELVINA; 10 MCG/KG/MIN PRN Reason: Protocol Last Admin: 09/12/17 13:21 Dose: 17.2 mls/hr Piperacillin Sod/Tazobactam (Sod 3.375 gm/ Sodium Chloride) 100 mls @ 25 mls/ hr IVPB Q12H [facility] Last Admin: 09/12/17 09:45 Dose: 25 mls/hr Norepinephrine Bitartrate 4 mg (/ Sodium Chloride) 250 mls @ 37.5 mls/hr IV Q6H [facility]; 10 MCG/MIN PRN Reason: Protocol Dexmedetomidine HCl 400 mcg/ (Sodium Chloride) 100 mls @ 12.12 mls/hr IVPB Q8H [facility] PRN Reason: 0.5 MCG/KG/HR Last Admin: 09/12/17 11:34 Dose: 12.12 mls/hr Methylprednisolone Sodium Succinate (Solu-Medrol 125mg *) 60 mg IV Q8H [facility] Last Admin: 09/12/17 07:46 Dose: 60 mg Physical Exam: General: intubated, sedated now Head: normocephalic, atraumatic HEENT: no pallor, no icterus, moist mucous membranes Neck: soft, supple, no jvd CVS: regular, abel, no murmur Resp: diminished air entry bilaterally, scattered wheeze+, no rhales, no rhonchi Abdomen: soft, nondistended, bs+ Ext: pulses+, cool ext, 2+ bilateral LE edema. Skin: intact, no breakdown, no dryness Neuro: intubated, sedated. pupils not pinpoint and reactive. cough/gag+. Reflexes brisk in all ext. Labs: Laboratory Results - last 24 hr 09/11/17 09/11/17 09/11/17 15:42 16:44 17:06 WBC RBC Hgb Hct MCV MCH MCHC RDW Plt Count MPV INR (Anticoag Therapy) Patient Temperature 38.4 ABG pH 7.22 L ABG pH (Temp Correct) Not Reportable ABG pCO2 68 H ABG pCO2 (Temp Corrct Not Reportable ABG pO2 141 H ABG pO2 (Temp Correct Not Reportable ABG HCO3 23.4 ABG O2 Saturation 98.6 H ABG Base Excess -1.9 Respiration Rate 26 O2 Delivery Device vent Ventilator Type Not Reportable Vent Mode apvcmv FiO2 60 Inspiratory Time Not Reportable PEEP 10 Pressure Support Not Reportable Pressure Control Not Reportable EPAP Not Reportable IPAP Not Reportable BiPAP Not Reportable Sodium Potassium Chloride Carbon Dioxide Anion Gap BUN Creatinine Est GFR ( Amer) Est GFR (Non-Af Amer) BUN/Creatinine Ratio Glucose Hemoglobin A1c 5.7 H Lactic Acid Calcium Phosphorus Magnesium Troponin I TSH Random Vancomycin Influenza A (Rapid) Negative Influenza B (Rapid) Negative 09/11/17 09/11/17 09/11/17 17:06 17:17 17:17 WBC RBC Hgb Hct MCV MCH MCHC RDW Plt Count MPV INR (Anticoag Therapy) 0.99 Patient Temperature ABG pH ABG pH (Temp Correct) ABG pCO2 ABG pCO2 (Temp Corrct ABG pO2 ABG pO2 (Temp Correct ABG HCO3 ABG O2 Saturation ABG Base Excess Respiration Rate O2 Delivery Device Ventilator Type Vent Mode FiO2 Inspiratory Time PEEP Pressure Support Pressure Control EPAP IPAP BiPAP Sodium Potassium Chloride Carbon Dioxide Anion Gap BUN Creatinine Est GFR ( Amer) Est GFR (Non-Af Amer) BUN/Creatinine Ratio Glucose Hemoglobin A1c Lactic Acid 0.8 Calcium Phosphorus Magnesium Troponin I TSH 0.58 Random Vancomycin Influenza A (Rapid) Influenza B (Rapid) 09/11/17 09/12/17 09/12/17 17:17 00:20 00:20 WBC RBC Hgb Hct MCV MCH MCHC RDW Plt Count MPV INR (Anticoag Therapy) Patient Temperature 37.4 ABG pH 7.23 L ABG pH (Temp Correct) Not Reportable ABG pCO2 64 H ABG pCO2 (Temp Corrct Not Reportable ABG pO2 158 H ABG pO2 (Temp Correct Not Reportable ABG HCO3 23.1 ABG O2 Saturation 98.8 H ABG Base Excess -2.3 L Respiration Rate 26 O2 Delivery Device mechanical ventilator Ventilator Type 400 Vent Mode apv FiO2 60 Inspiratory Time Not Reportable PEEP 10 Pressure Support Not Reportable Pressure Control Not Reportable EPAP Not Reportable IPAP Not Reportable BiPAP Not Reportable Sodium Potassium Chloride Carbon Dioxide Anion Gap BUN Creatinine Est GFR ( Amer) Est GFR (Non-Af Amer) BUN/Creatinine Ratio Glucose Hemoglobin A1c Lactic Acid Calcium Phosphorus Magnesium Troponin I 1.66 H* TSH Random Vancomycin 13.6 Influenza A (Rapid) Influenza B (Rapid) 09/12/17 09/12/17 09/12/17 06:00 06:00 06:00 WBC 14.2 H RBC 4.55 Hgb 14.2 Hct 44 MCV 96 H MCH 31 MCHC 33 RDW 15 Plt Count 181 MPV 9 INR (Anticoag Therapy) Patient Temperature ABG pH 7.21 L ABG pH (Temp Correct) ABG pCO2 66 H ABG pCO2 (Temp Corrct ABG pO2 136 H ABG pO2 (Temp Correct ABG HCO3 22.6 ABG O2 Saturation 98.8 H ABG Base Excess -3.0 L Respiration Rate O2 Delivery Device Ventilator Type Vent Mode FiO2 Inspiratory Time PEEP Pressure Support Pressure Control EPAP IPAP BiPAP Sodium 141 Potassium 4.5 Chloride 108 Carbon Dioxide 27 Anion Gap 6 BUN 35 H Creatinine 1.80 H Est GFR ( Amer) 49.1 Est GFR (Non-Af Amer) 38.2 BUN/Creatinine Ratio 19.4 Glucose 191 H Hemoglobin A1c Lactic Acid Calcium 7.7 L Phosphorus 3.8 Magnesium 2.0 Troponin I 1.20 H* TSH Random Vancomycin 8.9 Influenza A (Rapid) Influenza B (Rapid) 09/12/17 13:23 WBC RBC Hgb Hct MCV MCH MCHC RDW Plt Count MPV INR (Anticoag Therapy) Patient Temperature ABG pH 7.25 L ABG pH (Temp Correct) ABG pCO2 59 H ABG pCO2 (Temp Corrct ABG pO2 93 ABG pO2 (Temp Correct ABG HCO3 23.1 ABG O2 Saturation 97.8 ABG Base Excess -2.3 L Respiration Rate O2 Delivery Device Ventilator Type Vent Mode FiO2 Inspiratory Time PEEP Pressure Support Pressure Control EPAP IPAP BiPAP Sodium Potassium Chloride Carbon Dioxide Anion Gap BUN Creatinine Est GFR ( Amer) Est GFR (Non-Af Amer) BUN/Creatinine Ratio Glucose Hemoglobin A1c Lactic Acid Calcium Phosphorus Magnesium Troponin I TSH Random Vancomycin Influenza A (Rapid) Influenza B (Rapid) Imaging: Reviewed CT brain no acute findings CT abd/pelvis/chest right hilar mass, mediastinal LN+, retroperitoneal LN+, enlarged liver with possible mass, left adrenal mass, mod-severe emphysematous changes, anterior abd hernia cxr 09/11 no acute process noted, hilar fullness+, no congestion/infiltrate. cxr 09/12 - ett above lory; some RLL infiltrates noted by me now; official read no new changes. ECHO 09/11 - normal/hyperdynamic LV; RV mildly reduced function Assessment: 66y M pmhx of tobacco use, cocaine use in the past, COPD; patient last seen the day before admission (yesterday 09/10). Today found in his home unresponsive. EMS called. Patient found to have pinpoint pupils, given narcan without effect. Manually bagged, pulse was present. He was brought to ER, found to be hypoxic to 70s, tachycardic, with initial BP >110. He was unresponsive, intubated for airway protection. Shortly after hypotensive to 70s, given NS 3L bolus, started on levophed pressor support. -Encephalopathy, metabolic/toxic vs ischemic vs global anoxic/hypoxic injury -Acute Hypercapneic and hypoxic respiratory failure; intubated 09/11 -Severe Acute COPD exacerbation -r/o underlying sepsis, pneumonia, aspiration? -dsitributive shock, septic shock? -Renal insufficiency, acute? -Right lung hilar mass with adenopathy -Left adrenal mass -Substance abuse, cocaine+, marijuana+ Plan: Neuro- encephalopathy, multifactorial from hypercapnea +/- hypoxic injury. history of possible abnormal speech/confusion for weeks. possible ischemic disease? will attempt to get MRI. CT head negative. restless on sedation weaning , difficult to assess. resp status not stable to take off sedation completely due to obstruction in exp flow. on propofol and precedex, wean as able. CVS- shock, may be more septic. low grade temps and wbc elevation. ?RLL infiltrate? aspiration? IV abx. levophed at 5mcg. IVF 1/2 NS to be started. CVP 13 Monitor urine output. Empiric abx coverage. Maintain MAP>65. Abel but can be from precedex, will dec precedex. Resp- intubated. hypoxia improved. hypercapnea slow to improve. cont steroids and bronchodilators. now on AC. increase sedation to allow prolonged expiration. bronchodilators ot relieve obstruction. Noted CT findings of right hilar mass, known to patient and family of some 'lung nodule'. Wheezing improved , but overall diminished breath sounds. minimal secretions, no sig growth from sputum yet. ID- wbc 14. tmax 99.9. blood cultures neg so far. sputum no sig growth yet. cont zosyn, cont vanco for 24 hours. GI- start tube feeds, jevity 1.2 @ 10cc/hour with increases; free water q8h. GI prophylaxis. Renal- renal insuff. Acute? chronic? boles cathetor for strict i/o measurement. IVF 1/2NS infusion 50cc/hr. Maintain perfusion pressure with pressors. Heme- hg stable. plt okay. no bleeding noted. DVT prophylaxis with SCDS and chemical. Endo- normal a1c Musculsk- pressure ulcer prophylaxis. bedrest. Wounds- none Nutrition- tube feeding DVT prophylaxis: SCDs/heparin sq GI prophylaxis: Pepcid iv Central Line: left IJ 09/11 Arterial Line: right radial 09/11 Boles Cathetor: yes Disposition: icu for respiratory failure, encephalopathy Code Status: full code Total Critical Care time is 40 minutes, excluding procedures/teaching Gucci Frost MD Line Decorator (Electronically Signed)
[2017-09-12] MEDS ORDERED: Midazolam* 1 MG/ML 2 ML VIAL (2 MG) IV PRN (15:59)
[2017-09-12] MEDS: NS 0.45% 1000 ML BAG* 1,000 ML IV SCH (15:59)
[2017-09-12] MEDS ORDERED: Midazolam* 1 MG/ML 2 ML VIAL (2 MG) ONE (16:08)
[2017-09-12] MEDS: Norepinephrine VIAL* 8 MG in NS 0.9% 500 ML* 492 ML IV SCH (17:44)
[2017-09-12] MEDS: LORazepam INJ* 2 MG/ML 1 ML VIAL IV PUSH PRN ×2 (18:03→22:46)
[2017-09-13] MEDS: Chlorhexidine MOUTHWASH 0.12%* 15 ML UDC TOPICAL SCH ×6 (00:20→21:44)
[2017-09-13] MEDS: methylPREDNISolone 125 MG* 2 ML VIAL IV SCH ×4 (00:20→23:39)
[2017-09-13] MEDS: NS 0.45% 1000 ML BAG* 1,000 ML IV SCH (03:00)
[2017-09-13] MEDS ORDERED: Magnesium Sulfate 2 GM IV* 2 GM/50 ML BAG IV ONE (03:30)
[2017-09-13] MEDS: Propofol* 100 ML IV SCH ×7 (03:41→23:39)
[2017-09-13] MEDS ORDERED: NS 0.9% 500 ML* 500 ML IV ONE (04:00)
[2017-09-13] MEDS ORDERED: VECURONIUM BROMIDE 10 MG INJ IV ONE ×2 (04:00→10:00)
[2017-09-13] MEDS: Albuterol/Ipratropium NEB.SOL* Albuterol 2.5 MG/Ipratropium 0.5 MG 3 ML INH SCH ×5 (04:25→21:02)
[2017-09-13] MEDS: Heparin VIAL(*) 5000 UNITS/ML VIAL (FIVE THOUSAND) SUBCUT SCH ×3 (05:39→21:44)
[2017-09-13] MEDS: Norepinephrine VIAL* 8 MG in NS 0.9% 500 ML* 492 ML IV SCH (05:39)
[2017-09-13 06:28] LABS: Hematocrit 43 % (42-52); Mean Corpuscular HGB Conc 32 g/dl (31-36); Mean Corpuscular Hemoglobin 31 pg (27-31); Mean Corpuscular Volume 97 fL (80-94); Mean Platelet Volume 8 um3 (7.4-10.4); Platelet Count 164 10^3/ul (150-450); Red Blood Count 4.46 10^6/ul (4.0-5.4); Red Cell Distribution Width 15 % (10.5-15); White Blood Count 13.7 10^3/ul (3.5-10.8)
[2017-09-13 07:05] LABS: EGFR Non-African American 47.9 (>60)
[2017-09-13] MEDS: Dexmedetomidine* 400 MCG in NS 0.9% 100 ML* 96 ML IVPB SCH ×2 (07:26→20:58)
[2017-09-13] MEDS ORDERED: Albuterol 2.5 MG/3 ML NEB.SOL* (0.083%) ONE (09:26)
[2017-09-13] MEDS ORDERED: Albuterol 2.5 MG/3 ML NEB.SOL* (0.083%) INH ONE (09:29)
[2017-09-13] MEDS: Famotidine IV* 10 MG/ML 2 ML (20 mg) IV SLOW PU SCH (09:36)
[2017-09-13] MEDS: Piperacillin/Tazobac ADVAN(*) 3.375 GM in NS 0.9% 100 ML* 100 ML IVPB SCH ×2 (09:36→21:44)
--- NOTE | 2017-09-13 09:44 | PN ---
Progress Note - Progress Note Date of Service: 09/13/17 Note: Progress Note - Critical Care 24 hour events: -intubated, overnight ABG worse -on pressors -was called, advised a dose of paralytic for better synchrony, did improve abg and ventilation; vec 7.5mg iv push x1 -remains sedated on precedex and propofol -on levophed 5 -CVP noted 21 Tele: sinus rhythm Vitals: Vital Signs Temp 97.9 F 09/13/17 09:15 Pulse 85 09/13/17 09:15 Resp 23 09/13/17 09:00 BP 98/65 09/13/17 04:28 Pulse Ox 94 09/13/17 09:15 Intake & Output 09/12/17 09/13/17 09/13/17 18:59 06:59 18:59 Intake Total 707.6 3477.8 Output Total 600 255 Balance 107.6 3222.8 Weight 220 lb 3.869 oz Intake: IV Fluids 59 1578.7 1/2 NS 33 895 D5W NS (0.9%) 678 kvo 26 zosyn 5.7 IVPB 100 190 D5W NS (0.9%) 63 kvo 127 zosyn 100 Medicated IV 548.6 1249.1 CC - Norepinephrine/ 314 556 Levophed precedex 28.6 149.1 propofol 206 544 Tube Feeding 210 Tube Feeding Flush Amount 250 Output: NG Tube Drainage Amount 50 Boles 550 255 O2/Vent: PCV 35/7, 35%; volumes of 300-350, rate of 24 Infusions: levophed 5, propofol 60, precedex 0.5, 1/2 ns @ 100->50 Current Medications: Albuterol/Ipratropium (Duoneb (Albuterol 2.5 Mg/Ipratropium 0.5 Mg)) 1 neb INH Q4H [facility] Last Admin: 09/13/17 09:28 Dose: 1 neb Chlorhexidine Gluconate (Peridex Mouth Wash 0.12%*) 15 ml TOPICAL Q4H [facility] Last Admin: 09/13/17 09:36 Dose: 15 ml Dextrose (D50w Syringe 50 Ml*) 25 gm IV PUSH ONCE PRN PRN Reason: FS < 60 Famotidine (Pepcid Iv*) 20 mg IV SLOW PU DAILY [facility] Last Admin: 09/13/17 09:36 Dose: 20 mg Fentanyl Citrate (Fentanyl*) 50 mcg IV SLOW PU ONCE [facility] Last Admin: 09/12/17 10:48 Dose: 50 mcg Fentanyl Citrate (Fentanyl*) 25 mcg IV SLOW PU Q1HR PRN PRN Reason: agitation Last Admin: 09/13/17 01:57 Dose: 25 mcg Heparin Sodium (Porcine) (Heparin Flush Picc/Ml/Cvc(*)) 0 ml FLUSH 0600,1800 [facility] PRN Reason: Protocol Last Admin: 09/13/17 05:39 Dose: Not Given Heparin Sodium (Porcine) (Heparin Vial(*)) 5,000 units SUBCUT Q8HR [facility] Last Admin: 09/13/17 05:39 Dose: 5,000 units Propofol (Diprivan*) 100 mls @ 5.4 mls/hr IV .(Initial Rate) [facility]ELVINA; 10 MCG/KG/MIN PRN Reason: Protocol Last Admin: 09/13/17 09:05 Dose: 35.6 mls/hr Piperacillin Sod/Tazobactam (Sod 3.375 gm/ Sodium Chloride) 100 mls @ 25 mls/ hr IVPB Q12H [facility] Last Admin: 09/13/17 09:36 Dose: 25 mls/hr Dexmedetomidine HCl 400 mcg/ (Sodium Chloride) 100 mls @ 12.12 mls/hr IVPB Q8H [facility] PRN Reason: 0.5 MCG/KG/HR Last Admin: 09/13/17 07:26 Dose: 12.4 mls/hr Norepinephrine Bitartrate 8 mg (/ Sodium Chloride) 500 mls @ 37.5 mls/hr IV Q13H [facility]; 10 MCG/MIN PRN Reason: Protocol Last Admin: 09/13/17 05:39 Dose: 37.5 mls/hr Lorazepam (Ativan Inj*) 1 mg IV PUSH Q4H PRN PRN Reason: respiratory distress Last Admin: 09/12/17 22:46 Dose: 1 mg Methylprednisolone Sodium Succinate (Solu-Medrol 125mg *) 60 mg IV Q8H [facility] Last Admin: 09/13/17 09:35 Dose: 60 mg Physical Exam: General: intubated, sedated now Head: normocephalic, atraumatic HEENT: no pallor, no icterus, moist mucous membranes Neck: soft, supple, no jvd CVS: normal rate, reg rhythm, no murmur Resp: diminished but present bilateral air entry, no wheezing noted Abdomen: soft, nondistended, bs+ Ext: pulses+, cool ext, 2+ bilateral LE edema. Skin: intact, no breakdown, no dryness Neuro: intubated, sedated. pupils not pinpoint and reactive. cough/gag+. Reflexes brisk in all ext. Labs: Laboratory Results - last 24 hr 09/12/17 09/12/17 09/13/17 13:23 21:08 01:26 WBC RBC Hgb Hct MCV MCH MCHC RDW Plt Count MPV Patient Temperature Not Reportable 36.7 c ABG pH 7.25 L 7.20 L 7.19 L* ABG pH (Temp Correct) Not Reportable Not Reportable ABG pCO2 59 H 76 H* 79 H* ABG pCO2 (Temp Corrct Not Reportable Not Reportable ABG pO2 93 94 101 H ABG pO2 (Temp Correct Not Reportable Not Reportable ABG HCO3 23.1 24.4 24.5 ABG O2 Saturation 97.8 97.2 97.5 ABG Base Excess -2.3 L -0.6 -0.5 Respiration Rate 16 O2 Delivery Device Ventilator Type Not Reportable Vent Mode Pcv FiO2 40 Inspiratory Time Not Reportable PEEP 7 Pressure Support Not Reportable Pressure Control Not Reportable EPAP Not Reportable IPAP Not Reportable BiPAP Not Reportable Sodium Potassium Chloride Carbon Dioxide Anion Gap BUN Creatinine Est GFR ( Amer) Est GFR (Non-Af Amer) BUN/Creatinine Ratio Glucose Calcium 09/13/17 09/13/17 09/13/17 04:30 05:44 05:44 WBC 13.7 H RBC 4.46 Hgb 14.0 Hct 43 MCV 97 H MCH 31 MCHC 32 RDW 15 Plt Count 164 MPV 8 Patient Temperature ABG pH 7.24 L ABG pH (Temp Correct) ABG pCO2 66 H ABG pCO2 (Temp Corrct ABG pO2 86 ABG pO2 (Temp Correct ABG HCO3 24.2 ABG O2 Saturation 97.1 ABG Base Excess -0.8 Respiration Rate O2 Delivery Device Ventilator Type Vent Mode FiO2 Inspiratory Time PEEP Pressure Support Pressure Control EPAP IPAP BiPAP Sodium 139 Potassium 5.3 H Chloride 107 Carbon Dioxide 29 Anion Gap 3 BUN 36 H Creatinine 1.48 H Est GFR ( Amer) 61.5 Est GFR (Non-Af Amer) 47.9 BUN/Creatinine Ratio 24.3 H Glucose 159 H Calcium 8.1 L 09/13/17 09:33 WBC RBC Hgb Hct MCV MCH MCHC RDW Plt Count MPV Patient Temperature Not Reportable ABG pH 7.12 L* ABG pH (Temp Correct) Not Reportable ABG pCO2 90 H* ABG pCO2 (Temp Corrct Not Reportable ABG pO2 102 H ABG pO2 (Temp Correct Not Reportable ABG HCO3 22.7 ABG O2 Saturation 97.7 ABG Base Excess -2.8 L Respiration Rate Not Reportable O2 Delivery Device vent Ventilator Type Not Reportable Vent Mode aprv FiO2 65 Inspiratory Time Not Reportable PEEP Not Reportable Pressure Support Not Reportable Pressure Control Not Reportable EPAP Not Reportable IPAP Not Reportable BiPAP Not Reportable Sodium Potassium Chloride Carbon Dioxide Anion Gap BUN Creatinine Est GFR ( Amer) Est GFR (Non-Af Amer) BUN/Creatinine Ratio Glucose Calcium Imaging: Reviewed CT brain no acute findings CT abd/pelvis/chest right hilar mass, mediastinal LN+, retroperitoneal LN+, enlarged liver with possible mass, left adrenal mass, mod-severe emphysematous changes, anterior abd hernia cxr 09/11 no acute process noted, hilar fullness+, no congestion/infiltrate. cxr 09/12 - ett above lory; some RLL infiltrates noted by me now; official read no new changes. ECHO 09/11 - normal/hyperdynamic LV; RV mildly reduced function Assessment: 66y M pmhx of tobacco use, cocaine use in the past, COPD; patient last seen the day before admission (yesterday 09/10). Today found in his home unresponsive. EMS called. Patient found to have pinpoint pupils, given narcan without effect. Manually bagged, pulse was present. He was brought to ER, found to be hypoxic to 70s, tachycardic, with initial BP >110. He was unresponsive, intubated for airway protection. Shortly after hypotensive to 70s, given NS 3L bolus, started on levophed pressor support. -Encephalopathy, metabolic/toxic vs ischemic vs global anoxic/hypoxic injury -Acute Hypercapneic and hypoxic respiratory failure; intubated 09/11 -Severe Acute COPD exacerbation -r/o underlying sepsis, pneumonia, aspiration? -dsitributive shock, septic shock? 2/2 to sedation? -Renal insufficiency, acute? -Right lung hilar mass with adenopathy -Left adrenal mass -Substance abuse, cocaine+, marijuana+ Plan: Neuro- encephalopathy, multifactorial from hypercapnea +/- hypoxic injury. history of possible abnormal speech/confusion for weeks. possible ischemic disease? will attempt to get MRI when stable enough. CT head negative. CVS- shock, may be more septic +/- sedation. afebrile. IV abx empiric zosyn coverage. levophed at 5mcg. IVF 1/2 NS to 50cc/hour. CVP 20. lasix 20mg iv x1 now. Maintain MAP>65. Bradycardia improved. Resp- intubated. hypoxia better but hypercapnea worse. likely obstructing still. Steroids increased overnight. Paralytic did work. he has doubt breaths hindering exhalation. repeat vec x1 now. subq epi 0.3mg 1:1000. cont bronchodilators. cont steroids. may benefit if we had heliox. may need paralytic infusion till obstruction improved. Noted CT findings of right hilar mass, known to patient and family of some 'lung nodule'. no further wheezing noted now. minimal secretions, no sig growth from sputum yet. ID- wbc 13. tmax 98. blood cultures neg so far. sputum no sig growth yet. cont zosyn. GI- tube feeds, jevity 1.2; free water q8h. GI prophylaxis. Renal- renal insuff, s/p lasix 20mg, good urine output. still positive balace. Cr improved. K 5.3. insulin/d50/calcium/lasix iv now. repeat bmp in 4 hours. boles cathetor for strict i/o measurement. IVF 1/2NS infusion 50cc/hr Heme- hg stable. plt okay. no bleeding noted. DVT prophylaxis with SCDS and chemical. Endo- normal a1c Musculsk- pressure ulcer prophylaxis. bedrest. Wounds- none Nutrition- tube feeding DVT prophylaxis: SCDs/heparin sq GI prophylaxis: Pepcid iv Central Line: left IJ 09/11 Arterial Line: right radial 09/11 Boles Cathetor: yes Disposition: icu for respiratory failure, encephalopathy Code Status: full code Total Critical Care time is 40 minutes, excluding procedures/teaching Gucci Frost MD Visual Display Manager (Electronically Signed)
[2017-09-13] MEDS ORDERED: EPINEPHrine AMP 1 MG/ML SUBCUT ONE (09:47)
[2017-09-13] MEDS ORDERED: Insulin REGULAR(*) 1 UNITS UNIT IV PUSH ONE (09:48)
[2017-09-13] MEDS ORDERED: Furosemide IV* 10 MG/ML 2 ML VIAL (20 MG) IV SLOW PU ONE (09:48)
[2017-09-13] MEDS ORDERED: Dextrose 50% Syringe 50 ML* 25 GM/50 ML SYRINGE IV PUSH PRN (09:48)
[2017-09-13] MEDS ORDERED: Calcium CHLORIDE 10% SYRINGE* 1 GM/10 ML IV ONE (09:49)
[2017-09-13] MEDS ORDERED: NS 0.45% 1000 ML BAG* 1,000 ML IV SCH (10:00)
--- NOTE | 2017-09-13 10:04 | PN ---
Subjective Date of Service: 09/13/17 Interval History: Overnight, no new issues. Per nursing staff, he was more agitated overnight, pulling at his tubes, requiring sedation, at one point paralytics. He is currently on proprolol, precedex, levophed for pressure support. Movements are at times purposeful in that he tries to pull at tubing. Not following commands Objective Active Medications: Albuterol/Ipratropium (Duoneb (Albuterol 2.5 Mg/Ipratropium 0.5 Mg)) 1 neb INH Q4H ETELVINA Last Admin: 09/13/17 09:28 Dose: 1 neb Chlorhexidine Gluconate (Peridex Mouth Wash 0.12%*) 15 ml TOPICAL Q4H ETELVINA Last Admin: 09/13/17 09:36 Dose: 15 ml Dextrose (D50w Syringe 50 Ml*) 25 gm IV PUSH ONCE PRN PRN Reason: FS < 60 Famotidine (Pepcid Iv*) 20 mg IV SLOW PU DAILY ETELVINA Last Admin: 09/13/17 09:36 Dose: 20 mg Fentanyl Citrate (Fentanyl*) 50 mcg IV SLOW PU ONCE ETELVINA Last Admin: 09/12/17 10:48 Dose: 50 mcg Fentanyl Citrate (Fentanyl*) 25 mcg IV SLOW PU Q1HR PRN PRN Reason: agitation Last Admin: 09/13/17 01:57 Dose: 25 mcg Heparin Sodium (Porcine) (Heparin Flush Picc/Ml/Cvc(*)) 0 ml FLUSH 0600,1800 ETELVINA PRN Reason: Protocol Last Admin: 09/13/17 05:39 Dose: Not Given Heparin Sodium (Porcine) (Heparin Vial(*)) 5,000 units SUBCUT Q8HR ETELVINA Last Admin: 09/13/17 05:39 Dose: 5,000 units Propofol (Diprivan*) 100 mls @ 5.4 mls/hr IV .(Initial Rate) ETELVINA; 10 MCG/KG/MIN PRN Reason: Protocol Last Admin: 09/13/17 09:05 Dose: 35.6 mls/hr Piperacillin Sod/Tazobactam (Sod 3.375 gm/ Sodium Chloride) 100 mls @ 25 mls/ hr IVPB Q12H ETELVINA Last Admin: 09/13/17 09:36 Dose: 25 mls/hr Dexmedetomidine HCl 400 mcg/ (Sodium Chloride) 100 mls @ 12.12 mls/hr IVPB Q8H ETELVINA PRN Reason: 0.5 MCG/KG/HR Last Admin: 09/13/17 07:26 Dose: 12.4 mls/hr Sodium Chloride (Ns 0.45% 1000 Ml Bag*) 1,000 mls @ 100 mls/hr IV PER RATE ETELVINA Last Admin: 09/13/17 03:00 Dose: 100 mls/hr Norepinephrine Bitartrate 8 mg (/ Sodium Chloride) 500 mls @ 37.5 mls/hr IV Q13H ETELVINA; 10 MCG/MIN PRN Reason: Protocol Last Admin: 09/13/17 05:39 Dose: 37.5 mls/hr Lorazepam (Ativan Inj*) 1 mg IV PUSH Q4H PRN PRN Reason: respiratory distress Last Admin: 09/12/17 22:46 Dose: 1 mg Methylprednisolone Sodium Succinate (Solu-Medrol 125mg *) 60 mg IV Q8H ETELVINA Last Admin: 09/13/17 09:35 Dose: 60 mg Vecuronium Moran (Vecuronium Moran*) 5 mg IV ONCE ONE Stop: 09/13/17 10:01 Vital Signs 09/12/17 09/12/17 09/12/17 10:00 10:07 10:15 Temperature 99.0 F 99.0 F Pulse Rate 106 108 Respiratory 20 Rate Blood Pressure 107/64 (mmHg) O2 Sat by Pulse 98 98 Oximetry 09/12/17 09/12/17 09/12/17 10:30 10:45 10:48 Temperature 99.0 F 99.0 F Pulse Rate 106 106 Respiratory 20 Rate Blood Pressure 105/62 (mmHg) O2 Sat by Pulse 97 97 Oximetry 09/12/17 09/12/17 09/12/17 11:00 11:09 11:15 Temperature 99.0 F 99.0 F Pulse Rate 104 103 104 Respiratory 20 20 Rate Blood Pressure 96/59 (mmHg) O2 Sat by Pulse 96 96 96 Oximetry 09/12/17 09/12/17 09/12/17 11:30 11:45 12:00 Temperature 99.0 F 98.8 F Pulse Rate 110 102 101 Respiratory Rate Blood Pressure 103/71 94/59 (mmHg) O2 Sat by Pulse 97 97 97 Oximetry 09/12/17 09/12/17 09/12/17 12:15 12:30 12:33 Temperature 99.0 F 99.0 F Pulse Rate 97 91 Respiratory 20 Rate Blood Pressure (mmHg) O2 Sat by Pulse 96 96 Oximetry 09/12/17 09/12/17 09/12/17 12:45 13:00 13:15 Temperature 99.0 F 99.0 F 99.1 F Pulse Rate 89 89 87 Respiratory Rate Blood Pressure 94/61 (mmHg) O2 Sat by Pulse 97 97 97 Oximetry 09/12/17 09/12/17 09/12/17 13:20 13:30 13:45 Temperature 99.1 F 99.1 F Pulse Rate 85 84 Respiratory 20 Rate Blood Pressure 90/59 (mmHg) O2 Sat by Pulse 96 96 Oximetry 09/12/17 09/12/17 09/12/17 14:00 14:03 14:15 Temperature 99.1 F 99.1 F Pulse Rate 83 84 Respiratory 23 Rate Blood Pressure (mmHg) O2 Sat by Pulse 97 97 Oximetry 09/12/17 09/12/17 09/12/17 14:30 14:45 15:00 Temperature 99.1 F 99.1 F 99.1 F Pulse Rate 83 81 80 Respiratory Rate Blood Pressure 92/57 101/63 (mmHg) O2 Sat by Pulse 96 96 95 Oximetry 09/12/17 09/12/17 09/12/17 15:02 15:15 15:30 Temperature 99.0 F 98.8 F Pulse Rate 81 81 Respiratory 21 Rate Blood Pressure 96/61 (mmHg) O2 Sat by Pulse 94 94 Oximetry 09/12/17 09/12/17 09/12/17 15:40 15:45 15:48 Temperature 98.8 F Pulse Rate 81 82 Respiratory 22 Rate Blood Pressure (mmHg) O2 Sat by Pulse 95 Oximetry 09/12/17 09/12/17 09/12/17 16:00 16:15 16:30 Temperature 98.6 F 98.6 F 98.6 F Pulse Rate 78 79 76 Respiratory Rate Blood Pressure 98/63 104/67 (mmHg) O2 Sat by Pulse 95 95 94 Oximetry 09/12/17 09/12/17 09/12/17 16:40 16:45 17:00 Temperature 98.6 F 98.4 F Pulse Rate 81 85 Respiratory 20 Rate Blood Pressure 100/62 (mmHg) O2 Sat by Pulse 93 94 Oximetry 09/12/17 09/12/1717 17:15 17:30 17:45 Temperature 98.4 F 98.4 F 98.4 F Pulse Rate 85 85 84 Respiratory Rate Blood Pressure 111/68 (mmHg) O2 Sat by Pulse 95 96 96 Oximetry 09/12/17 09/12/17 09/12/17 18:00 18:03 18:15 Temperature 98.4 F 98.2 F Pulse Rate 81 81 Respiratory 23 Rate Blood Pressure 114/70 (mmHg) O2 Sat by Pulse 96 95 Oximetry 09/12/17 09/12/17 09/12/17 18:16 18:30 18:45 Temperature 98.2 F 98.2 F Pulse Rate 83 85 Respiratory 20 Rate Blood Pressure 100/61 (mmHg) O2 Sat by Pulse 94 94 Oximetry 09/12/17 09/12/17 09/12/17 19:00 19:15 19:30 Temperature 98.2 F 98.2 F 98.2 F Pulse Rate 85 84 82 Respiratory 16 Rate Blood Pressure 100/59 100/62 (mmHg) O2 Sat by Pulse 94 95 95 Oximetry 09/12/17 09/12/17 09/12/17 19:45 20:00 20:01 Temperature 98.2 F 98.2 F 98.2 F Pulse Rate 83 83 84 Respiratory 16 Rate Blood Pressure 102/60 (mmHg) O2 Sat by Pulse 94 94 94 Oximetry 09/12/17 09/12/17 09/12/17 20:15 20:20 20:30 Temperature 98.2 F 98.2 F Pulse Rate 83 86 Respiratory 16 Rate Blood Pressure 99/61 (mmHg) O2 Sat by Pulse 94 94 Oximetry 09/12/17 09/12/17 09/12/17 20:45 21:00 21:15 Temperature 98.2 F 98.2 F 98.2 F Pulse Rate 86 85 85 Respiratory Rate Blood Pressure 107/61 (mmHg) O2 Sat by Pulse 95 96 96 Oximetry 09/12/17 09/12/17 09/12/17 21:30 21:45 22:00 Temperature 98.2 F 98.2 F 98.2 F Pulse Rate 84 85 81 Respiratory 20 Rate Blood Pressure 109/63 112/68 (mmHg) O2 Sat by Pulse 95 96 95 Oximetry 09/12/17 09/12/17 09/12/17 22:01 22:15 22:30 Temperature 98.2 F 98.2 F 98.2 F Pulse Rate 83 80 80 Respiratory Rate Blood Pressure 114/68 (mmHg) O2 Sat by Pulse 95 97 96 Oximetry 09/12/17 09/12/17 09/12/17 22:31 22:45 22:46 Temperature 98.2 F 98.2 F Pulse Rate 80 80 Respiratory 16 Rate Blood Pressure (mmHg) O2 Sat by Pulse 96 96 Oximetry 09/12/17 09/12/17 09/12/17 23:00 23:15 23:30 Temperature 98.2 F 98.2 F 98.2 F Pulse Rate 81 82 81 Respiratory 20 Rate Blood Pressure 110/65 109/67 (mmHg) O2 Sat by Pulse 95 94 95 Oximetry 09/12/17 09/12/17 09/13/17 23:45 23:57 00:00 Temperature 98.2 F 98.2 F Pulse Rate 84 87 Respiratory 20 Rate Blood Pressure 102/61 (mmHg) O2 Sat by Pulse 92 93 Oximetry 09/13/17 09/13/17 09/13/17 00:03 00:15 00:30 Temperature 98.2 F 98.2 F 98.2 F Pulse Rate 89 90 88 Respiratory Rate Blood Pressure (mmHg) O2 Sat by Pulse 93 93 94 Oximetry 09/13/17 09/13/17 09/13/17 00:45 01:00 01:15 Temperature 98.2 F 98.2 F 98.1 F Pulse Rate 90 88 86 Respiratory 21 Rate Blood Pressure (mmHg) O2 Sat by Pulse 94 94 94 Oximetry 09/13/17 09/13/17 09/13/17 01:27 01:30 01:45 Temperature 98.1 F 98.1 F 98.1 F Pulse Rate 85 85 86 Respiratory Rate Blood Pressure 111/65 (mmHg) O2 Sat by Pulse 95 95 95 Oximetry 09/13/17 09/13/17 09/13/17 01:57 02:00 02:02 Temperature 98.1 F 98.1 F Pulse Rate 84 84 Respiratory 21 20 Rate Blood Pressure 112/68 (mmHg) O2 Sat by Pulse 94 94 Oximetry 09/13/17 09/13/17 09/13/17 02:15 02:30 02:45 Temperature 98.1 F 98.1 F 98.1 F Pulse Rate 81 77 76 Respiratory Rate Blood Pressure (mmHg) O2 Sat by Pulse 95 97 95 Oximetry 09/13/17 09/13/17 09/13/17 03:00 03:15 03:30 Temperature 98.1 F 98.1 F 98.1 F Pulse Rate 73 72 73 Respiratory 21 Rate Blood Pressure (mmHg) O2 Sat by Pulse 96 96 96 Oximetry 09/13/17 09/13/17 09/13/17 03:45 04:00 04:15 Temperature 98.1 F 98.1 F 98.1 F Pulse Rate 75 76 76 Respiratory 21 Rate Blood Pressure (mmHg) O2 Sat by Pulse 96 96 95 Oximetry 09/13/17 09/13/17 09/13/17 04:28 04:30 04:45 Temperature 98.1 F 98.1 F 98.1 F Pulse Rate 75 75 79 Respiratory Rate Blood Pressure 98/65 (mmHg) O2 Sat by Pulse 96 96 94 Oximetry 09/13/17 09/13/17 09/13/17 05:00 05:15 05:30 Temperature 98.1 F 98.1 F 98.1 F Pulse Rate 81 81 81 Respiratory 20 Rate Blood Pressure (mmHg) O2 Sat by Pulse 93 93 94 Oximetry 09/13/17 09/13/17 09/13/17 05:45 06:00 06:15 Temperature 98.1 F 98.1 F 98.1 F Pulse Rate 81 81 81 Respiratory 24 Rate Blood Pressure (mmHg) O2 Sat by Pulse 94 94 94 Oximetry 09/13/17 09/13/17 09/13/17 06:30 06:45 07:00 Temperature 98.1 F 97.9 F 97.9 F Pulse Rate 82 81 80 Respiratory 20 Rate Blood Pressure (mmHg) O2 Sat by Pulse 95 95 95 Oximetry 09/13/17 09/13/17 09/13/17 07:15 07:30 07:45 Temperature 97.9 F 97.9 F 97.9 F Pulse Rate 79 79 80 Respiratory Rate Blood Pressure (mmHg) O2 Sat by Pulse 95 95 94 Oximetry 09/13/17 09/13/17 09/13/17 08:00 08:15 08:30 Temperature 97.9 F 97.9 F 97.9 F Pulse Rate 80 80 82 Respiratory 20 Rate Blood Pressure (mmHg) O2 Sat by Pulse 94 94 94 Oximetry 09/13/17 09/13/17 09/13/17 08:45 09:00 09:15 Temperature 97.9 F 97.9 F 97.9 F Pulse Rate 82 82 85 Respiratory 23 Rate Blood Pressure (mmHg) O2 Sat by Pulse 94 95 94 Oximetry Oxygen Devices in Use Now: Endotracheal Tube, Mechanical Ventilator Neurology Exam: General: Sedated, unresponsive. Difficult to wean off of Propofol at this point HEENT: Normocephelic/atraumstic, sclera anicteric, ET tube in placae Chest: Diffuse wheezes Cardiovascular: Regular rate and rhythm without murmurs Abdomen: Distended Extremities: Cyanosis of the toes, mild mottling of skin Neurological Findings: Sedated, unresponsive. Exam on Propofol this am. No arousal with painful or loud stimulation, no spontaneous eye opening Face appears symmetric, no obvious asymmetry. Pupils are pinpoint, minimally reactive, negative Doll's eye Positive Cough with deep suction No W/D to pain X 4 DTRs: 2+ at BC, 2+ at patella, absent ankles, equivocal plantars Result Diagrams: 09/13/17 05:44 09/13/17 05:44 Microbiology and Other Data: Microbiology 09/12/17 07:58 Gram Stain - Final Sputum 09/11/17 17:10 Influenza Types A,B Antigen (ADDIE) - Final Nasal Specimen received for Influenza A/B Molecular testing 09/11/17 15:33 Nasal Screen MRSA (PCR)(ADDIE) - Final Nasal Mrsa Negative 09/11/17 15:33 Influenza Types A,B Antigen (ADDIE) - Final Nasal Specimen received for Influenza A/B Molecular testing Assessment/Plan 66 year old with a history of polysubstance abuse, positive for cocaine and marijuana on admission, h/o COPD, ? Hep C, found down on day of admission, apparently per family, did not sound normal on phone the night before and may have had problems dating back for several weeks although the history of poor. He was found down hypoxic and hypercapnic and was down for an unknown amount of time. Currently on pressor support, ventilated and on sedation Status and Disposition: Neuro: My suspicion is that he is suffering from an severe encephalopathy, likely related to anoxic injury from prolonged hypoxia/hypercapnea. He has failed to improve despite aggressive medical management. CT of the head showed no acute issues but the possibility of a stroke, particularly brainstem stroke, given presentation, exists. Unfortunately, he is too unstable for MRI at this point. . EEG on admission showed no signs of seizures or status. He does have a history of polysubstance use. This could be related to some unknown ingestion/ toxicity but my suspicion is low. In addition, my suspicion for underlying [employer] infection is low as well. He is on empiric antibiotics. --Continue aggressive medical management per primary team: --blood pressure support --TF --Ventilatory support --empiric antibiotics --Supportive care --Wean sedation as tolerated --Consider repeating CT scan in the next 24-48 hours to look for evidence of evolving stroke or intracranial abnormality --I have no other new recommendations at this point. Prognosis is guarded. Will continue to follow closely.
[2017-09-13] MEDS ORDERED: VECURONIUM BROMIDE 10 MG INJ IV PRN (10:51)
[2017-09-13] MEDS ORDERED: LORazepam INJ* 2 MG/ML 1 ML VIAL IV PUSH PRN (10:52)
[2017-09-13] MEDS: Midazolam PREMIX BAG 1 MG/ML* 100 MG/100 ML BAG IV SCH (11:49)
[2017-09-13 14:57] LABS: EGFR Non-African American 48.6 (>60)
[2017-09-14] MEDS: Albuterol/Ipratropium NEB.SOL* Albuterol 2.5 MG/Ipratropium 0.5 MG 3 ML INH SCH ×8 (00:55→23:09)
[2017-09-14] MEDS: Chlorhexidine MOUTHWASH 0.12%* 15 ML UDC TOPICAL SCH ×6 (01:30→21:07)
[2017-09-14] MEDS: Dexmedetomidine* 400 MCG in NS 0.9% 100 ML* 96 ML IVPB SCH ×3 (04:03→18:08)
[2017-09-14] MEDS: Propofol* 100 ML IV SCH ×6 (04:05→23:36)
[2017-09-14] MEDS: Heparin VIAL(*) 5000 UNITS/ML VIAL (FIVE THOUSAND) SUBCUT SCH ×3 (05:12→21:07)
[2017-09-14 05:55] LABS: Hematocrit 41 % (42-52); Hemoglobin 13.5 g/dl (14.0-18.0); Mean Corpuscular HGB Conc 33 g/dl (31-36); Mean Corpuscular Hemoglobin 32 pg (27-31); Mean Corpuscular Volume 96 fL (80-94); Mean Platelet Volume 8 um3 (7.4-10.4); Platelet Count 145 10^3/ul (150-450); Red Cell Distribution Width 15 % (10.5-15); White Blood Count 14.9 10^3/ul (3.5-10.8)
--- NOTE | 2017-09-14 06:14 | PN ---
Progress Note - Progress Note Date of Service: 09/13/17 Note: LATE ENTRY 09/13/2017 0300 Mr Marin is a 66M found down at home of a suspected severe COPD exacerbation with hypoxic/hypercapneic respiratory failure, and high concern for anoxic brain injury. Nursing called reporting abnormal ABG despite ventilator adjustments and current sedation. Case reviewed with Akbar Frost MD research agricultural engineer who advised induction dosing of vecuronium for paralysis. Lungs: intubated, diminished B, CV: RRR; abdomen: soft, NABS; extremities: W&D Assessment: plan acute hypoxic, hypercarbic respiratory failure 2nd severe COPD exacerbation w/ poor ventilator compliance : vecuronium 7.5mg IV x1, continue close ICU monitoring, f/u ABG critical care time: 35min w/ >75% at the bedside evaluating the patient
[2017-09-14] MEDS: Midazolam PREMIX BAG 1 MG/ML* 100 MG/100 ML BAG IV SCH (07:29)
--- NOTE | 2017-09-14 08:11 | RAD ---
INDICATION: Respiratory failure. COMPARISON: Comparison is made with prior study from September 12, 2017. TECHNIQUE: A portable view of the chest was obtained. FINDINGS: There is an endotracheal tube present. The catheter tip projects over the midline at the level of the clavicular heads. There is a nasogastric tube present. The catheter tip projects in the left upper quadrant. There is a central venous catheter entering on the left side. The catheter tip projects in the right paratracheal region. The heart is within normal limits in size. There is a small infiltrate at the right lung base which appears unchanged. No pleural effusion is seen. IMPRESSION: SMALL RIGHT BASILAR INFILTRATE.
[2017-09-14] MEDS: methylPREDNISolone 125 MG* 2 ML VIAL IV SCH ×3 (08:28→23:37)
[2017-09-14] MEDS: Famotidine IV* 10 MG/ML 2 ML (20 mg) IV SLOW PU SCH (08:28)
[2017-09-14] MEDS: fentaNYL* 50 MCG/ML 2 ML VIAL (100 MCG VIAL) IV SLOW PU SCH (10:54)
[2017-09-14] MEDS ORDERED: fentaNYL* 50 MCG/ML 2 ML VIAL (100 MCG VIAL) IV SLOW PU ONE (10:55)
[2017-09-14] MEDS: Piperacillin/Tazobac ADVAN(*) 3.375 GM in NS 0.9% 100 ML* 100 ML IVPB SCH ×3 (11:50→19:40)
--- NOTE | 2017-09-14 12:50 | PN ---
Progress Note - Progress Note Date of Service: 09/14/17 Note: CRITICAL CARE MEDICINE Date: 09/14/17 Time: 940 SUBJECTIVE: Patient seen and examined. PHYSICAL EXAM: Vital Signs: Reviewed. Neurologic: off versed and prop today able to open eyes and respond slow but appropriately to all ext pain; non communicating. eyes pass midline HEENT: pupils equal. Sclera anicteric. Trachea midline. ett Cardiovascular: distant, S1 S2 Respiratory: poor air movement bl; adjusted vent Abdomen: Soft, nt. No r/g/r. Extremities: Warm. Access: cvc, james LABS: Reviewed. IMAGING: Reviewed. MEDICATIONS: Reviewed. ASSESSMENT: 66 M Acute hypoxic and hypercarbic resp failure Hypoxic encephalopathy COPD exac Aspiration pneumonitis KASHMIR - improved h/o substance abuse PLAN: Neurologic: sedation vacation but will need to resume to sync with vent; appreciate neuro input and can have ct later today. time. Cardiovascular: perfusing. vol status ok; avoid overload. Respiratory: poor compliance and high resistance on vent with contined air trapping. needs exhalation time. cpap at high level today. will chronically retain. bases are still lousy. Gastrointestinal: tf. sup Renal/Metabolic: kash[place] stable. Infectious Disease: on zosyn originally but no infective source. more aspiration and copd exac. can complete 5 day course at this rate and then would limit. Hematology: stable. Endocrine: steroids at high level for now. Musculoskeletal: bedrest. Psych/Social: son updated; add nictoine td Supportive and preventative care as ordered. SUP: H2 VTE prophylaxis: heparin Rogers catheter given critical illness, monitoring needs for accurate assessment of KASHMIR and KDIGO criteria for critically ill patients and to avoid potential harms of urinary retention, skin breakdown/ulcers. Disposition: ICU Code Status: Full Critical Care Time: 35min Malaika Barron DO
--- NOTE | 2017-09-14 13:28 | PN ---
Subjective Date of Service: 09/14/17 Interval History: The patient has had no real change today. Off of propofol and versed earlier, currently on. He gets very agitated off of sedation but is moving all extremities, somewhat purposefully, coughing and gagging to suction, opens eyes but not tracking. Remains dependent on ventilator. Objective Active Medications: Albuterol/Ipratropium (Duoneb (Albuterol 2.5 Mg/Ipratropium 0.5 Mg)) 1 neb INH [id number] AWAKE COUNT INCLUDES THE [facility] Last Admin: 09/14/17 11:45 Dose: 1 neb Chlorhexidine Gluconate (Peridex Mouth Wash 0.12%*) 15 ml TOPICAL Q4H ETELVINA Last Admin: 09/14/17 13:03 Dose: 15 ml Dextrose (D50w Syringe 50 Ml*) 25 gm IV PUSH ONCE PRN PRN Reason: FS < 60 Last Admin: 09/13/17 10:31 Dose: 25 gm Famotidine (Pepcid Iv*) 20 mg IV SLOW PU DAILY COUNT INCLUDES THE [facility] Last Admin: 09/14/17 08:28 Dose: 20 mg Fentanyl Citrate (Fentanyl*) 50 mcg IV SLOW PU ONCE ETELVINA Last Admin: 09/14/17 10:54 Dose: 50 mcg Fentanyl Citrate (Fentanyl*) 25 mcg IV SLOW PU Q1HR PRN PRN Reason: agitation Last Admin: 09/13/17 01:57 Dose: 25 mcg Heparin Sodium (Porcine) (Heparin Flush Picc/Ml/Cvc(*)) 0 ml FLUSH 0600,1800 ETELVINA PRN Reason: Protocol Last Admin: 09/14/17 05:04 Dose: Not Given Heparin Sodium (Porcine) (Heparin Vial(*)) 5,000 units SUBCUT Q8HR COUNT INCLUDES THE [facility] Last Admin: 09/14/17 13:03 Dose: 5,000 units Propofol (Diprivan*) 100 mls @ 5.4 mls/hr IV .(Initial Rate) ETELVINA; 10 MCG/KG/MIN PRN Reason: Protocol Last Admin: 09/14/17 13:03 Dose: 5.4 mls/hr Dexmedetomidine HCl 400 mcg/ (Sodium Chloride) 100 mls @ 12.12 mls/hr IVPB Q8H ETELVINA PRN Reason: 0.5 MCG/KG/HR Last Admin: 09/14/17 11:44 Dose: Not Given Norepinephrine Bitartrate 8 mg (/ Sodium Chloride) 500 mls @ 37.5 mls/hr IV Q13H ETELVINA; 10 MCG/MIN PRN Reason: Protocol Last Admin: 09/13/17 05:39 Dose: 37.5 mls/hr Piperacillin Sod/Tazobactam (Sod 3.375 gm/ Sodium Chloride) 100 mls @ 25 mls/ hr IVPB 0400,1200,2000 COUNT INCLUDES THE [facility] Last Admin: 09/14/17 11:53 Dose: 25 mls/hr Lorazepam (Ativan Inj*) 2 mg IV PUSH Q3H PRN PRN Reason: respiratory distress Methylprednisolone Sodium Succinate (Solu-Medrol 125mg *) 60 mg IV Q8H COUNT INCLUDES THE [facility] Last Admin: 09/14/17 08:28 Dose: 60 mg Nicotine (Nicotine Patch 14 Mg/24 Hr*) 1 patch TRANSDERM DAILY COUNT INCLUDES THE [facility] Pharmacy Profile Note (Nicotine Patch Removal Note*) 1 note PATCH OFF 2100 COUNT INCLUDES THE [facility] Vital Signs 09/13/17 09/13/17 09/13/17 13:30 13:45 14:00 Temperature Pulse Rate 59 58 57 Respiratory 22 Rate Blood Pressure (mmHg) O2 Sat by Pulse 97 97 97 Oximetry 09/13/17 09/13/17 09/13/17 14:15 14:30 14:45 Temperature Pulse Rate 57 58 62 Respiratory Rate Blood Pressure (mmHg) O2 Sat by Pulse 97 100 97 Oximetry 09/13/17 09/13/17 09/13/17 15:00 15:15 15:30 Temperature Pulse Rate 63 68 74 Respiratory 22 Rate Blood Pressure (mmHg) O2 Sat by Pulse 97 97 97 Oximetry 09/13/17 09/13/17 09/13/17 15:45 16:00 16:09 Temperature 97.8 F Pulse Rate 75 73 Respiratory 22 Rate Blood Pressure (mmHg) O2 Sat by Pulse 97 97 Oximetry 09/13/17 09/13/17 09/13/17 16:15 16:30 16:45 Temperature Pulse Rate 73 75 76 Respiratory Rate Blood Pressure (mmHg) O2 Sat by Pulse 96 97 96 Oximetry 09/13/17 09/13/17 09/13/17 17:00 17:15 17:30 Temperature Pulse Rate 75 75 75 Respiratory 22 Rate Blood Pressure (mmHg) O2 Sat by Pulse 96 96 96 Oximetry 09/13/17 09/13/17 09/13/17 17:45 17:57 18:00 Temperature Pulse Rate 74 74 Respiratory 22 Rate Blood Pressure (mmHg) O2 Sat by Pulse 96 97 Oximetry 09/13/17 09/13/17 09/13/17 18:15 18:30 18:45 Temperature Pulse Rate 79 75 76 Respiratory Rate Blood Pressure (mmHg) O2 Sat by Pulse 97 96 97 Oximetry 09/13/17 09/13/17 09/13/17 19:00 19:15 19:27 Temperature 97.8 F Pulse Rate 76 75 Respiratory 22 Rate Blood Pressure (mmHg) O2 Sat by Pulse 96 96 Oximetry 09/13/17 09/13/17 09/13/17 19:30 19:45 20:00 Temperature Pulse Rate 78 78 78 Respiratory 22 Rate Blood Pressure (mmHg) O2 Sat by Pulse 96 96 96 Oximetry 09/13/17 09/13/17 09/13/17 20:15 20:30 20:45 Temperature Pulse Rate 77 77 77 Respiratory Rate Blood Pressure (mmHg) O2 Sat by Pulse 96 96 96 Oximetry 09/13/17 09/13/17 09/13/17 20:53 21:00 21:04 Temperature Pulse Rate 78 77 Respiratory 22 22 Rate Blood Pressure (mmHg) O2 Sat by Pulse 96 96 Oximetry 09/13/17 09/13/17 09/13/17 21:15 21:30 21:45 Temperature Pulse Rate 73 75 75 Respiratory Rate Blood Pressure (mmHg) O2 Sat by Pulse 97 97 97 Oximetry 09/13/17 09/13/17 09/13/17 21:48 22:00 22:15 Temperature Pulse Rate 75 75 Respiratory 22 Rate Blood Pressure (mmHg) O2 Sat by Pulse 97 97 Oximetry 09/13/17 09/13/17 09/13/17 22:30 22:45 22:54 Temperature Pulse Rate 91 85 Respiratory 22 Rate Blood Pressure (mmHg) O2 Sat by Pulse 96 98 Oximetry 09/13/17 09/13/17 09/13/17 23:00 23:03 23:15 Temperature Pulse Rate 81 78 78 Respiratory Rate Blood Pressure (mmHg) O2 Sat by Pulse 98 98 97 Oximetry 09/13/17 09/13/17 09/13/17 23:22 23:30 23:45 Temperature 97.0 F Pulse Rate 76 76 Respiratory Rate Blood Pressure (mmHg) O2 Sat by Pulse 97 97 Oximetry 09/14/17 09/14/1709/14/17 00:00 00:15 00:30 Temperature Pulse Rate 76 76 76 Respiratory 22 Rate Blood Pressure (mmHg) O2 Sat by Pulse 97 97 97 Oximetry 09/14/17 09/14/17 09/14/17 00:45 01:00 01:09 Temperature Pulse Rate 75 76 79 Respiratory 22 20 Rate Blood Pressure (mmHg) O2 Sat by Pulse 97 97 97 Oximetry 09/14/17 09/14/17 09/14/17 01:15 01:30 01:45 Temperature Pulse Rate 79 83 86 Respiratory Rate Blood Pressure (mmHg) O2 Sat by Pulse 98 98 98 Oximetry 09/14/17 09/14/17 09/14/17 01:53 02:00 02:15 Temperature Pulse Rate 85 79 Respiratory 22 Rate Blood Pressure (mmHg) O2 Sat by Pulse 98 99 Oximetry 09/14/17 09/14/17 09/14/17 02:30 02:45 03:00 Temperature Pulse Rate 83 83 78 Respiratory 22 Rate Blood Pressure (mmHg) O2 Sat by Pulse 99 99 99 Oximetry 09/14/17 09/14/17 09/14/17 03:15 03:30 03:38 Temperature 97.3 F Pulse Rate 84 90 Respiratory 22 Rate Blood Pressure (mmHg) O2 Sat by Pulse 99 97 Oximetry 09/14/17 09/14/17 09/14/17 03:40 03:45 04:00 Temperature Pulse Rate 90 105 Respiratory 22 Rate Blood Pressure (mmHg) O2 Sat by Pulse 97 96 Oximetry 09/14/17 09/14/17 09/14/17 04:01 04:15 04:30 Temperature Pulse Rate 103 98 96 Respiratory Rate Blood Pressure 121/72 (mmHg) O2 Sat by Pulse 96 95 95 Oximetry 09/14/17 09/14/17 09/14/17 04:45 05:00 05:15 Temperature Pulse Rate 92 92 89 Respiratory 22 Rate Blood Pressure 90/61 (mmHg) O2 Sat by Pulse 95 95 95 Oximetry 09/14/17 09/14/17 09/14/17 05:30 05:45 05:52 Temperature Pulse Rate 85 84 Respiratory 22 Rate Blood Pressure (mmHg) O2 Sat by Pulse 95 95 Oximetry 09/14/17 09/14/17 09/14/17 06:00 06:01 06:15 Temperature Pulse Rate 90 90 84 Respiratory Rate Blood Pressure 111/70 (mmHg) O2 Sat by Pulse 94 96 96 Oximetry 09/14/17 09/14/17 09/14/17 06:30 06:45 07:00 Temperature Pulse Rate 85 91 88 Respiratory 22 Rate Blood Pressure 97/59 (mmHg) O2 Sat by Pulse 96 95 95 Oximetry 09/14/17 09/14/17 09/14/17 07:15 07:30 07:45 Temperature Pulse Rate 103 95 101 Respiratory Rate Blood Pressure (mmHg) O2 Sat by Pulse 94 94 93 Oximetry 09/14/17 09/14/17 09/14/17 07:55 08:00 08:15 Temperature 98.9 F Pulse Rate 101 101 Respiratory 22 Rate Blood Pressure 118/70 (mmHg) O2 Sat by Pulse 94 94 Oximetry 09/14/17 09/14/17 09/14/17 08:30 08:45 08:47 Temperature Pulse Rate 100 98 Respiratory 22 Rate Blood Pressure (mmHg) O2 Sat by Pulse 94 94 Oximetry 09/14/17 09/14/17 09/14/17 09:00 09:15 09:18 Temperature Pulse Rate 111 102 106 Respiratory 10 Rate Blood Pressure 139/93 (mmHg) O2 Sat by Pulse 93 96 94 Oximetry 09/14/17 09/14/17 09/14/17 09:30 09:45 10:54 Temperature Pulse Rate 113 Respiratory 16 15 Rate Blood Pressure (mmHg) O2 Sat by Pulse 94 Oximetry 09/14/17 09/14/17 11:48 11:49 Temperature Pulse Rate 137 Respiratory 15 15 Rate Blood Pressure (mmHg) O2 Sat by Pulse 97 Oximetry Oxygen Devices in Use Now: Mechanical Ventilator Neurology Exam: General: HEENT: Normocephalic/atraumatic, sclera anicteric, ET tube in place Chest: Diffuse wheezes bilaterally Cardiovascular: Regular rate and rhythm without murmurs Abdomen: distended Extremities: 1+ edema in the feet to ankles, 1+ edema in the hands. Neurological Findings: Currently on Propfol 40, sedated, opened eyes briefly to pain and loud stimulus , not tracking Cranial Nerve: PEERL 2-->1mm bilaterally, Dolls eye positive, gag with suction, coughs. Motor/Sensory: No movement currently, no w/d to pain throughout Deep Tendon Reflex: 2+ symmetric in the lower extremities, Babinski - equivocal No tremors noted, no abnormal movements Result Diagrams: 09/14/17 05:25 09/14/17 05:25 Microbiology and Other Data: Microbiology 09/12/17 07:58 Gram Stain - Final Sputum 09/11/17 17:10 Influenza Types A,B Antigen (ADDIE) - Final Nasal Specimen received for Influenza A/B Molecular testing 09/11/17 15:33 Nasal Screen MRSA (PCR)(ADDIE) - Final Nasal Mrsa Negative 09/11/17 15:33 Influenza Types A,B Antigen (ADDIE) - Final Nasal Specimen received for Influenza A/B Molecular testing Assessment/Plan 66 year old with a history of polysubstance abuse, positive for cocaine and marijuana on admission, h/o COPD, ? Hep C, found down on day of admission, apparently per family, did not sound normal on phone the night before and may have had problems dating back for several weeks although the history of poor. He was found down hypoxic and hypercapnic and was down for an unknown amount of time. Currently on pressor support, ventilated and on sedation Status and Disposition: Patient with likely anoxic brain injury, found down hypoxic/hypercapnic, unclear how long he was down but likely for hours. Now off pressors but needs sedation for agitation and vent management. Sedation holidays per primary team. 1. Repeat CT brain to look for any evolving process, rule out bleed. Consider brainstem stroke but too unstable for MRI at this point 2. Suspicion for seizures is low, EEG showed no epileptiform activity. No evidence of status 3. Continue conservative care. Serial exams off of propofol over time. He has made some slight improvement since admission but remains obtunded. 4. Continue management per primary ICU team: vent, OGT feedings, antibiotics, fluids Prognosis at this point remains gaurded. Will follow along.
[2017-09-14] MEDS: Nicotine PATCH 14 MG/24 HR* PATCH TRANSDERM SCH (13:53)
[2017-09-14] MEDS ORDERED: Albuterol/Ipratropium NEB.SOL* Albuterol 2.5 MG/Ipratropium 0.5 MG 3 ML ONE (14:57)
--- NOTE | 2017-09-14 16:04 | RAD ---
INDICATION: Altered mental status. Intubated. Unresponsive. COMPARISON: CT brain September 11, 2017 TECHNIQUE: Noncontrast axial source images were acquired from the skull base to the vertex. Examination is limited to minor extent due to motion artifact. FINDINGS: Ventricles/sulci: The ventricles and cisterns are normal in size and configuration for age. Brain parenchyma: There are now areas of decreased attenuation in the left and right cerebellar hemispheres each measuring approximately 1.8 cm. These have developed in the interval and are likely secondary to nonhemorrhagic cerebellar infarcts. There is no other focal parenchymal finding, evidence of intracranial mass, or intracranial mass effect. Intracranial hemorrhage:None. Extra-axial spaces: There are no abnormal extra axial fluid collections or evidence of extra-axial mass. Calvarium: There is no calvarial fracture or other calvarial abnormality. Scalp: There is no evidence of scalp or extracalvarial soft tissue abnormality. Paranasal sinuses/mastoid: There is mild bilateral ethmoid and maxillary antral sinusitis. There are no acute air-fluid levels Other: None. IMPRESSION: Suspect interval development of bilateral nonhemorrhagic cerebellar infarcts
[2017-09-14] MEDS: Aspirin Low Dose CHEW TAB* 81 MG PO SCH (17:32)
[2017-09-14] MEDS: Acetaminophen ADULT LIQ* 650 MG/20.3 ML UDC PO PRN (21:07)
[2017-09-14] MEDS: Nicotine Patch Removal NOTE PATCH OFF SCH (21:08)
[2017-09-14] MEDS: Norepinephrine VIAL* 8 MG in NS 0.9% 500 ML* 492 ML IV SCH ×3 (22:45→23:54)
[2017-09-15] MEDS: Chlorhexidine MOUTHWASH 0.12%* 15 ML UDC TOPICAL SCH ×6 (01:56→20:46)
[2017-09-15] MEDS: Propofol* 100 ML IV SCH ×3 (02:16→09:35)
[2017-09-15] MEDS: Albuterol/Ipratropium NEB.SOL* Albuterol 2.5 MG/Ipratropium 0.5 MG 3 ML INH SCH ×6 (03:12→23:00)
[2017-09-15] MEDS: Dexmedetomidine* 400 MCG in NS 0.9% 100 ML* 96 ML IVPB SCH ×3 (03:56→22:34)
[2017-09-15] MEDS: Piperacillin/Tazobac ADVAN(*) 3.375 GM in NS 0.9% 100 ML* 100 ML IVPB SCH ×3 (03:57→20:38)
[2017-09-15 06:34] LABS: Hematocrit 40 % (42-52); Hemoglobin 13.1 g/dl (14.0-18.0); Mean Corpuscular HGB Conc 33 g/dl (31-36); Mean Corpuscular Hemoglobin 31 pg (27-31); Mean Corpuscular Volume 94 fL (80-94); Mean Platelet Volume 8 um3 (7.4-10.4); Platelet Count 157 10^3/ul (150-450); Red Blood Count 4.24 10^6/ul (4.0-5.4); Red Cell Distribution Width 16 % (10.5-15); White Blood Count 13.1 10^3/ul (3.5-10.8)
[2017-09-15] MEDS: Heparin VIAL(*) 5000 UNITS/ML VIAL (FIVE THOUSAND) SUBCUT SCH ×3 (06:47→20:46)
[2017-09-15 06:54] LABS: EGFR Non-African American 53.7 (>60)
[2017-09-15] MEDS: methylPREDNISolone 125 MG* 2 ML VIAL IV SCH (08:34)
[2017-09-15] MEDS: Famotidine IV* 10 MG/ML 2 ML (20 mg) IV SLOW PU SCH (08:35)
[2017-09-15] MEDS: Nicotine PATCH 14 MG/24 HR* PATCH TRANSDERM SCH (08:41)
[2017-09-15] MEDS: Aspirin Low Dose CHEW TAB* 81 MG PO SCH (08:44)
[2017-09-15] MEDS: Norepinephrine VIAL* 8 MG in NS 0.9% 500 ML* 492 ML IV SCH (11:38)
--- NOTE | 2017-09-15 11:59 | PN ---
Progress Note - Progress Note Date of Service: 09/15/17 Note: CRITICAL CARE MEDICINE Date: 09/15/17 Time: 1120 SUBJECTIVE: Patient seen and examined. PHYSICAL EXAM: Vital Signs: Reviewed. Neurologic: non communicating. eyes pass midline. more open. slow response to pain; not appropriate today HEENT: pupils equal. Sclera anicteric. Trachea midline. ett Cardiovascular: distant, S1 S2 Respiratory: poor air movement still bl; high level cpap. dismal trigger. dysync Abdomen: Soft, nt. No r/g/r. Extremities: Warm. Access: cvc, james LABS: Reviewed. IMAGING: Reviewed. MEDICATIONS: Reviewed. ASSESSMENT: 66 M Acute hypoxic and hypercarbic resp failure Hypoxic encephalopathy COPD exac Aspiration pneumonitis KASHMIR - improved h/o substance abuse PLAN: Neurologic: sedation still but try precedex and lower propofol. may need to try narcs, but still worried this is more due to cerebral resp pattern and poor copd lung. time. Cardiovascular: perfusing. vol status ok; low dose levo at times. Respiratory: poor compliance and high resistance on vent; not going to equilibrate with vent yet, not liberatable sec to neuro insult and not going to forsee much progress but support for now. Gastrointestinal: tf. sup Renal/Metabolic: [place] stable. Infectious Disease: on zosyn for now. Hematology: stable. Endocrine: steroids Musculoskeletal: bedrest. Psych/Social: nictoine td; will need to d/w family Supportive and preventative care as ordered. SUP: H2 VTE prophylaxis: heparin Rogers catheter given critical illness, monitoring needs for accurate assessment of KASHMIR and KDIGO criteria for critically ill patients and to avoid potential harms of urinary retention, skin breakdown/ulcers. Disposition: ICU Code Status: Full Critical Care Time: 35min Malaika Barron DO
[2017-09-15] MEDS: predniSONE TAB* 20 MG G TUBE SCH (16:42)
[2017-09-15] MEDS: Nicotine Patch Removal NOTE PATCH OFF SCH (20:49)
[2017-09-16] MEDS: Chlorhexidine MOUTHWASH 0.12%* 15 ML UDC TOPICAL SCH ×6 (01:54→21:01)
[2017-09-16] MEDS: Propofol* 100 ML IV SCH (02:58)
[2017-09-16] MEDS: Albuterol/Ipratropium NEB.SOL* Albuterol 2.5 MG/Ipratropium 0.5 MG 3 ML INH SCH ×6 (03:22→22:56)
[2017-09-16] MEDS: Dexmedetomidine* 400 MCG in NS 0.9% 100 ML* 96 ML IVPB SCH ×2 (03:47→14:52)
--- NOTE | 2017-09-16 05:17 | PN ---
FOLLOWUP NOTE: DATE OF SERVICE: 09/11/17 ATTENDING PHYSICIAN: Dr. Barron. HISTORY OF PRESENT ILLNESS: Mr. Nba Marin is a 66-year-old gentleman with a history of hepatitis C, use of cocaine and marijuana, admitted on 09/11/17 after being found down, not responding to Narcan. He was intubated, ventilated , required pressors. Dr. Reyez followed him in Neurology until yesterday at which point, a repeat CT revealed probable bilateral cerebellar stroke. He was started on aspirin 81 mg a day. His course has been complicated by respiratory status and hypotension. CURRENT MEDICATIONS: Include: 1. Propofol, which he was on during the examination. 2. IV heparin flush per protocol. 3. Methylprednisolone 125 mg/60 mcg q.8 hours. 4. Famotidine 20 mg PO daily. 5. Fentanyl 25 mcg IV q.1 hour p.r.n. agitation. 6. Dexamethasone, which has not been given recently. 7. Chlorhexidine mouthwash 0.12% topical. 8. Heparin subcu 5000 units q.8 hours. 9. Norephedrine 8 mg, please see MAR for details. 10. Lorazepam 2 mg IV q.3 hours p.r.n. respiratory distress. 11. Dextrose 50% syringe p.r.n. fingerstick less than 60. 12. Albuterol and ipratropium 1 neb inhaled. 13. Zosyn 3.375 g in normal saline 3 times a day. 14. Nicotine patch transdermal 14 mg q.24 hours. 15. Aspirin 81 mg p.o. daily. 16. Acetaminophen 650 mg p.o. q.6 hours p.r.n. fever. PHYSICAL EXAMINATION: On examination today, Mr. Marin' most recent blood pressure was 129/74 recorded in the chart; however, it had gotten down to the 80 systolic and pressors were restarted. His saturation was 91%, respiratory rate 12, heart rate 112, and the most recent temperature was 100.7. He had a regular cardiac rhythm. There was decreased air entry in the lungs. His pupils were small at about 2 mm with minimal response. I could not get a doll' s eyes, but he did have corneal responses bilaterally. His facial expression appeared symmetric, but there was no activation. There was no movement of his limbs to stimuli and no reaction of vital signs. His reflexes were 2+ in the upper and lower extremities. Toes were equivocal. DIAGNOSTIC STUDIES/LAB DATA: Data includes CT of the brain performed yesterday , which was reviewed directly and I agree there is abnormal signal in the bilateral cerebellar hemispheres and I question retrospect whether some of this was seen on the original CT. There also is hypodensity in the right brain stem region raising question of brain stem stroke versus artifact. He has been started on aspirin. He had an EEG on the , which was disorganized, which showed no seizure activity with body tightening and shaking. On today's visit only occasional twitch was noted on one shoulder or the other. Echocardiogram on the was poor quality in the setting of intubation with ejection fraction of greater than 65%. He previously had a CT of his abdomen and pelvis, which showed a right hilar mass, left adrenal mass, emphysema changes, increased liver size mass versus fatty infiltrate and lymph nodes. Please see report for further details. IMPRESSION: A 66-year-old gentleman with history of hepatitis C, use of marijuana, cocaine, admitted on the after being found down. He is intubated, ventilated and requires pressors and had a complicated ICU course. His most recent CT suggest bilateral cerebellar strokes and I do question whether it is brain stem ischemia. To clarify, he would need an MRI of the brain. I discussed this with Dr. Barron, he plans to have a family discussion and then make further decisions. If we get to the point of further stroke workup for possible embolic source and the patient would be able to be on anticoagulation, he will need a better view on echocardiogram. TIME SPENT: Over 30 minutes were spent in patient care and review of chart. The case was discussed with Dr. Barron. At this point, he has suggested p.r.n. Neurology followup and will call us if further input is needed. [id number]/[facility] #: [id number] ESE
[2017-09-16 06:20] LABS: Hematocrit 41 % (42-52); Hemoglobin 13.7 g/dl (14.0-18.0); Mean Corpuscular HGB Conc 33 g/dl (31-36); Mean Corpuscular Hemoglobin 31 pg (27-31); Mean Corpuscular Volume 95 fL (80-94); Mean Platelet Volume 8 um3 (7.4-10.4); Platelet Count 155 10^3/ul (150-450); Red Blood Count 4.37 10^6/ul (4.0-5.4); Red Cell Distribution Width 15 % (10.5-15); White Blood Count 11.8 10^3/ul (3.5-10.8)
[2017-09-16 06:37] LABS: EGFR Non-African American 69.6 (>60)
[2017-09-16] MEDS: Piperacillin/Tazobac ADVAN(*) 3.375 GM in NS 0.9% 100 ML* 100 ML IVPB SCH ×3 (06:47→21:01)
[2017-09-16] MEDS: Heparin VIAL(*) 5000 UNITS/ML VIAL (FIVE THOUSAND) SUBCUT SCH ×3 (06:47→21:01)
[2017-09-16] MEDS: Famotidine SUSP* 40 MG/5 ML ORAL.SYRIN G TUBE SCH (08:41)
[2017-09-16] MEDS: Norepinephrine VIAL* 8 MG in NS 0.9% 500 ML* 492 ML IV SCH ×2 (08:42→11:35)
[2017-09-16] MEDS: predniSONE TAB* 20 MG G TUBE SCH (08:42)
[2017-09-16] MEDS: Aspirin Low Dose CHEW TAB* 81 MG PO SCH (08:42)
[2017-09-16] MEDS: Nicotine PATCH 14 MG/24 HR* PATCH TRANSDERM SCH (09:01)
[2017-09-16] MEDS ORDERED: Furosemide IV* 10 MG/ML VIAL (40 MG) IV SLOW PU ONE (10:06)
--- NOTE | 2017-09-16 10:16 | PN ---
Progress Note - Progress Note Date of Service: 09/16/17 Note: CRITICAL CARE MEDICINE Date: 09/16/17 Time: 900 SUBJECTIVE: Patient seen and examined. PHYSICAL EXAM: Vital Signs: Reviewed. Neurologic: communicating with following commands and eq ext movements. denies pain. HEENT: pupils equal. Sclera anicteric. Trachea midline. ett Cardiovascular: distant, S1 S2 Respiratory: better air movement; cpap 20/12 continued but less attempted triggers. wheeze on right and dec on left Abdomen: Soft, nt; mild distension. No r/g/r. Extremities: Warm. Access: cvc, james LABS: Reviewed. IMAGING: Reviewed. MEDICATIONS: Reviewed. ASSESSMENT: 66 M Acute hypoxic and hypercarbic resp failure Hypoxic encephalopathy Cerebellar infarcts COPD exac Aspiration pneumonitis KASHMIR - improved h/o substance abuse PLAN: Neurologic: sedation at low dose and following commands. precedex probably helped as much better neuro today. Again, may have some brain stem involvement but more conscious now. [employer] consider mri for longer prognosis down the line but continued care at present. more time. Cardiovascular: perfusing. vol status up; low dose levo at times ok for now. has james for now. start diuretics Respiratory: poor compliance but better sync with very high level cpap. copd adjunctives and more time to hopeful neurp stability and attmept to liberate directly to niv in coming days. check cxr today Gastrointestinal: tf continued. sup. lactulose Renal/Metabolic: f/u lytes. Infectious Disease: zosyn to complete soon Hematology: stable. Endocrine: steroids Musculoskeletal: bedrest currently. Psych/Social: nictoine td; will d/w family Supportive and preventative care as ordered. SUP: H2 VTE prophylaxis: heparin Rogers catheter given critical illness, monitoring needs for accurate assessment of KASHMIR and KDIGO criteria for critically ill patients and to avoid potential harms of urinary retention, skin breakdown/ulcers. Disposition: ICU Code Status: Full Critical Care Time: 35min Malaika Barron DO
--- NOTE | 2017-09-16 11:31 | RAD ---
Indication: Respiratory failure. Single frontal view of the chest performed at 1020 hours was reviewed. Comparison is made with previous exam dated September 14, 2017. No mediastinal shift is noted. Heart is of normal size and configuration. There is a right suprahilar nodule noted. Previously identified interstitial edema is improved. IMPRESSION: INTERSTITIAL EDEMA IMPROVED. RIGHT SUPRAHILAR MASS PERSISTS.
[2017-09-16] MEDS: Nicotine Patch Removal NOTE PATCH OFF SCH (21:00)
[2017-09-17] MEDS: Dexmedetomidine* 400 MCG in NS 0.9% 100 ML* 96 ML IVPB SCH ×3 (01:37→11:23)
[2017-09-17] MEDS: Chlorhexidine MOUTHWASH 0.12%* 15 ML UDC TOPICAL SCH ×3 (01:53→08:40)
[2017-09-17] MEDS: Albuterol/Ipratropium NEB.SOL* Albuterol 2.5 MG/Ipratropium 0.5 MG 3 ML INH SCH ×3 (03:48→11:20)
[2017-09-17] MEDS: Norepinephrine VIAL* 8 MG in NS 0.9% 500 ML* 492 ML IV SCH (05:23)
[2017-09-17] MEDS: Heparin VIAL(*) 5000 UNITS/ML VIAL (FIVE THOUSAND) SUBCUT SCH ×3 (05:30→21:50)
[2017-09-17] MEDS: Piperacillin/Tazobac ADVAN(*) 3.375 GM in NS 0.9% 100 ML* 100 ML IVPB SCH ×2 (05:30→14:37)
[2017-09-17 06:16] LABS: ABS Basophils 0 10^3/ul (0-0.2); ABS Eosinophils 0.2 10^3/ul (0-0.6); ABS Lymphocytes 1.2 10^3/ul (1.0-4.8); ABS Monocytes 0.7 10^3/ul (0-0.8); ABS Nucleated RBC 0 10^3/ul; Eosinophil % 2.5 % (0-6); Hematocrit 41 % (42-52); Hemoglobin 13.7 g/dl (14.0-18.0); Lymphocyte % 13.3 % (25-47); Mean Corpuscular HGB Conc 33 g/dl (31-36); Mean Corpuscular Hemoglobin 31 pg (27-31); Mean Corpuscular Volume 94 fL (80-94); Mean Platelet Volume 9 um3 (7.4-10.4); Nucleated Red Blood Cells % 0; Platelet Count 145 10^3/ul (150-450); Red Blood Count 4.36 10^6/ul (4.0-5.4); Red Cell Distribution Width 15 % (10.5-15); White Blood Count 9.2 10^3/ul (3.5-10.8)
[2017-09-17 06:18] LABS: INR 0.98 (0.77-1.02)
[2017-09-17 06:20] LABS: EGFR Non-African American 71.1 (>60)
[2017-09-17] MEDS: Aspirin Low Dose CHEW TAB* 81 MG PO SCH (08:41)
[2017-09-17] MEDS: predniSONE TAB* 20 MG G TUBE SCH (08:41)
[2017-09-17] MEDS: Famotidine SUSP* 40 MG/5 ML ORAL.SYRIN G TUBE SCH (08:42)
[2017-09-17] MEDS: Nicotine PATCH 14 MG/24 HR* PATCH TRANSDERM SCH (08:43)
[2017-09-17] MEDS ORDERED: Furosemide IV* 10 MG/ML VIAL (40 MG) IV SLOW PU ONE (09:00)
--- NOTE | 2017-09-17 11:18 | PN ---
Progress Note - Progress Note Date of Service: 09/17/17 Note: CRITICAL CARE MEDICINE Date: 09/17/17 Time: 1010 SUBJECTIVE: Patient seen and examined. PHYSICAL EXAM: Vital Signs: Reviewed. Neurologic: communicating quite well. HEENT: pupils equal. Sclera anicteric. Trachea midline. ett Cardiovascular: distant, S1 S2 Respiratory: cpap 20/12 looking as great as ever. dec bs still Abdomen: Soft, nt; mild distension. +bms. Extremities: Warm. Access: cvc, james LABS: Reviewed. IMAGING: Reviewed. MEDICATIONS: Reviewed. ASSESSMENT: 66 M Acute hypoxic and hypercarbic resp failure Hypoxic encephalopathy - greatly improved. Cerebellar infarcts COPD exac Aspiration pneumonitis KASHMIR - improved h/o substance abuse PLAN: Neurologic: sedation with precedex alone currently and can slow off. neuro status is quite well considering. will need mri down the line and neuro f/u. all in time. Cardiovascular: perfusing. vol status better. lasix this am. off levo today. Respiratory: lungs are poor but as well as can be and needs chance for liberation. directly from cpap 20/12 to niv 16/8 and see if he can tolerate towards nc. maintain sat >88%. nocturnal bipap tonight likely. copd adjunctives. Gastrointestinal: tf held. sup. lactulose prn Renal/Metabolic: lytes ok Infectious Disease: zosyn to complete today Hematology: stable. Endocrine: steroid taper. Musculoskeletal: hopefully oob later. Psych/Social: nictoine td; will look to update family Supportive and preventative care as ordered. SUP: H2 VTE prophylaxis: heparin Rogers catheter given critical illness, monitoring needs for accurate assessment of KASHMIR and KDIGO criteria for critically ill patients and to avoid potential harms of urinary retention, skin breakdown/ulcers. Disposition: ICU Code Status: Full Critical Care Time: 35min Malaika Barron DO
[2017-09-17] MEDS ORDERED: LORazepam INJ* 2 MG/ML 1 ML VIAL IV PUSH PRN (12:34)
[2017-09-17] MEDS ORDERED: Albuterol/Ipratropium NEB.SOL* Albuterol 2.5 MG/Ipratropium 0.5 MG 3 ML INH PRN (12:36)
[2017-09-17] MEDS ORDERED: Spiriva Inhaler DEVICE* 1 EACH DEVICE SCH (13:00)
[2017-09-17] MEDS: Albuterol 2.5 MG/3 ML NEB.SOL* (0.083%) INH SCH ×2 (13:39→19:12)
[2017-09-17] MEDS: Mometasone/Formoter 200/5 MDI INH SCH (19:14)
[2017-09-17] MEDS: Nicotine Patch Removal NOTE PATCH OFF SCH (21:32)
[2017-09-18] MEDS: Albuterol 2.5 MG/3 ML NEB.SOL* (0.083%) INH SCH ×3 (00:49→13:06)
[2017-09-18] MEDS: Acetaminophen ADULT LIQ* 650 MG/20.3 ML UDC PO PRN (02:30)
[2017-09-18] MEDS: Heparin VIAL(*) 5000 UNITS/ML VIAL (FIVE THOUSAND) SUBCUT SCH ×3 (05:26→21:42)
[2017-09-18 05:56] LABS: EGFR Non-African American 68.8 (>60)
[2017-09-18] MEDS: Tiotropium CAP.INH* CAP.INH/18 MCG (USE ORDER SET !) INH SCH (07:47)
[2017-09-18] MEDS: Mometasone/Formoter 200/5 MDI INH SCH ×2 (07:47→20:35)
[2017-09-18] MEDS: Aspirin Low Dose CHEW TAB* 81 MG PO SCH (08:46)
[2017-09-18] MEDS: predniSONE TAB* 20 MG G TUBE SCH (08:46)
[2017-09-18] MEDS: Nicotine PATCH 14 MG/24 HR* PATCH TRANSDERM SCH (08:47)
[2017-09-18] MEDS ORDERED: Spiriva Inhaler DEVICE* 1 EACH DEVICE INH ONE (09:00)
[2017-09-18] MEDS: Famotidine SUSP* 40 MG/5 ML ORAL.SYRIN G TUBE SCH (09:52)
[2017-09-18] MEDS ORDERED: Furosemide IV* 10 MG/ML VIAL (40 MG) IV SLOW PU ONE (11:18)
--- NOTE | 2017-09-18 11:28 | PN ---
Progress Note - Progress Note Date of Service: 09/18/17 Note: CRITICAL CARE MEDICINE Date: 09/18/17 Time: 910 SUBJECTIVE: Patient seen and examined. doiung well. declined bipap last pm and states he could never wear at home either. PHYSICAL EXAM: Vital Signs: Reviewed. Neurologic: communicating well. nothing focal appreciated. HEENT: pupils equal. Sclera anicteric. Trachea midline. Cardiovascular: distant, S1 S2 Respiratory: looks good. 4L O2, rapid but good volumes going to remain his equilibration Abdomen: Soft, nt; less distension. +bms. Extremities: Warm. Access: cvc LABS: Reviewed. IMAGING: Reviewed. MEDICATIONS: Reviewed. ASSESSMENT: 66 M Acute hypoxic and hypercarbic resp failure Hypoxic encephalopathy - greatly improved. Cerebellar infarcts COPD exac Aspiration pneumonitis KASHMIR - improved h/o substance abuse PLAN: Neurologic: off sedatives. anxiolytics as needed Cardiovascular: perfusing. vol status still up and allow mobilization. dc cvc Respiratory: lungs are poor at baseline but tolerable. will need to access home O2 needs (was on 2L). copd adjunctives as orderd. steroid taper. declining bipap. Gastrointestinal: po. Renal/Metabolic: lytes ok but HCO3 up sec to steroids and lasix. 2 days po diamox to help offload contraction. Infectious Disease: zosyn completed. Hematology: stable. Endocrine: steroid taper. Musculoskeletal: oob, pt Psych/Social: nictoine td; good spirits Supportive and preventative care as ordered. SUP: po VTE prophylaxis: heparin Rogers catheter dcd Disposition: to floor Code Status: Full Critical Care Time: 25min Malaika Barron DO
[2017-09-18] MEDS: acetaZOLAMIDE TAB* 250 MG PO SCH ×2 (14:20→21:41)
[2017-09-18] MEDS: Norepinephrine VIAL* 8 MG in NS 0.9% 500 ML* 492 ML IV SCH ×2 (15:58→15:59)
[2017-09-18] MEDS: Atorvastatin* 40 MG TAB PO SCH (17:21)
[2017-09-18] MEDS: Nicotine Patch Removal NOTE PATCH OFF SCH (20:25)
[2017-09-19] MEDS: Heparin VIAL(*) 5000 UNITS/ML VIAL (FIVE THOUSAND) SUBCUT SCH ×3 (05:44→21:17)
[2017-09-19 06:46] LABS: ABS Basophils 0 10^3/ul (0-0.2); ABS Eosinophils 0.3 10^3/ul (0-0.6); ABS Lymphocytes 0.9 10^3/ul (1.0-4.8); ABS Monocytes 0.7 10^3/ul (0-0.8); ABS Neutrophils 5.9 10^3/ul (1.5-7.7); ABS Nucleated RBC 0 10^3/ul; Eosinophil % 3.7 % (0-6); Hematocrit 46 % (42-52); Hemoglobin 15.1 g/dl (14.0-18.0); Lymphocyte % 11.4 % (25-47); Mean Corpuscular HGB Conc 33 g/dl (31-36); Mean Corpuscular Hemoglobin 32 pg (27-31); Mean Corpuscular Volume 96 fL (80-94); Mean Platelet Volume 9 um3 (7.4-10.4); Nucleated Red Blood Cells % 0; Platelet Count 157 10^3/ul (150-450); Red Blood Count 4.79 10^6/ul (4.0-5.4); Red Cell Distribution Width 15 % (10.5-15); White Blood Count 7.7 10^3/ul (3.5-10.8)
[2017-09-19 07:03] LABS: EGFR Non-African American 65.3 (>60)
[2017-09-19] MEDS: Mometasone/Formoter 200/5 MDI INH SCH ×3 (08:01→19:24)
[2017-09-19] MEDS: Tiotropium CAP.INH* CAP.INH/18 MCG (USE ORDER SET !) INH SCH ×2 (08:01→16:06)
[2017-09-19] MEDS ORDERED: predniSONE TAB* 20 MG G TUBE SCH (09:00)
[2017-09-19] MEDS: acetaZOLAMIDE TAB* 250 MG PO SCH ×2 (09:22→20:01)
[2017-09-19] MEDS: Nicotine PATCH 14 MG/24 HR* PATCH TRANSDERM SCH (09:22)
[2017-09-19] MEDS: Aspirin Low Dose CHEW TAB* 81 MG PO SCH (09:22)
[2017-09-19] MEDS: Famotidine SUSP* 40 MG/5 ML ORAL.SYRIN G TUBE SCH (09:23)
--- NOTE | 2017-09-19 14:52 | PN ---
Subjective Date of Service: 09/19/17 Interval History: Patient seen and examined at bedside. Patient reports breathing improved. Remains on 4L. He states he is progressing with PT. Denies productive cough. SOB with exertion. Family History: Unchanged from Admission Social History: Unchanged from Admission Past Medical History: Unchanged from Admission Objective Active Medications: Acetaminophen (Tylenol Adult Liq*) 650 mg PO Q6H PRN Acetazolamide (Diamox Tab*) 250 mg PO BID [facility] Albuterol/Ipratropium (Duoneb (Albuterol 2.5 Mg/Ipratropium 0.5 Mg)) 1 neb INH [id number] AWAKE PRN Aspirin (Aspirin Low Dose Tab*) 81 mg PO DAILY [facility] Atorvastatin Calcium (Lipitor*) 40 mg PO 1700 [facility] Dextrose (D50w Syringe 50 Ml*) 25 gm IV PUSH ONCE PRN Famotidine (Pepcid Susp*) 20 mg PO DAILY [facility] Heparin Sodium (Porcine) (Heparin Vial(*)) 5,000 units SUBCUT Q8HR [facility] Lactulose (Lactulose*) 30 ml PO DAILY PRN Lorazepam (Ativan Inj*) 0.5 mg IV PUSH Q4H PRN Mometasone Furoate/Formoterol Fumar (Dulera 200/5 Mdi*) 2 puff INH BID [facility] Nicotine (Nicotine Patch 14 Mg/24 Hr*) 1 patch TRANSDERM DAILY [facility] Pharmacy Profile Note (Nicotine Patch Removal Note*) 1 note PATCH OFF 2100 [facility] Prednisone (Deltasone Tab*) 20 mg PO DAILY [facility] Tiotropium [place] (Spiriva Cap.Inh*) 1 cap INH DAILY [facility] . Oxygen Devices in Use Now: Nasal Cannula Appearance: sitting up in bed, NAD Eyes: No Scleral Icterus, PERRLA Ears/Nose/Mouth/Throat: NL Teeth, Lips, Gums Neck: NL Appearance and Movements; NL JVP Respiratory: Symmetrical Chest Expansion and Respiratory Effort, - - bilateral wheeze with elevated RR Cardiovascular: NL Sounds; No Murmurs; No JVD Abdominal: NL Sounds; No Tenderness; No Distention Extremities: No Edema Skin: No Rash or Ulcers Neurological: Alert and Oriented x 3, NL Muscle Strength and Tone Lines/Tubes/Other Access: Clean, Dry and Intact Peripheral IV Nutrition: Taking PO's Result Diagrams: 09/19/17 06:30 09/19/17 06:30 Microbiology and Other Data: . Assess/Plan/Problems-Billing 66 year old with a history of polysubstance abuse, positive for cocaine and marijuana on admission, h/o COPD, ? Hep C, found down on day of admission admitted with acute hypoxic, hypercarbic respiratory failure that required intubation with cerebellar infarcts now improved and on the floor. - Patient Problems (1) Acute respiratory failure with hypoxia and hypercapnia Comment: Resolving. Continues on 4L. Bicarb up from Lasix. Currently on Diamox which will end tomorrow. If oxygen cannot be weaned he may need higher dose steroids for a longer period of time. He declines Bipap. Continue with nebulizers. (2) Cerebellar infarct Comment: Appreciate prior neuro consult. Will try to get MRI tomorrow as respiratory status stabilizing. If MRI shows stroke he may need echocardiogram with bubble study if concern for embolic stroke as prior echo was a poor study and during his acute illness. (3) COPD exacerbation Comment: Continue steroid taper, standing nebs, dulera, and spiriva. Was on 2L at home. Currently remains on 4L (4) Hypoxic encephalopathy Comment: Resolved. (5) Hilar mass Comment: Will need pulm consult as outpatient or next week as inpatient if still here. Would need EBUS procedure for bx if patient agreeable. (6) Polysubstance abuse Comment: hx of cocaine use in the past. On nicotine patch. SW consult. (7) DVT prophylaxis Comment: SQ Heparin (8) Full code status
[2017-09-19] MEDS: Atorvastatin* 40 MG TAB PO SCH (17:23)
[2017-09-19] MEDS: Albuterol HFA INHALER* 8 gm MDI INH SCH ×2 (18:15→22:04)
[2017-09-19] MEDS: Nicotine Patch Removal NOTE PATCH OFF SCH (19:58)
[2017-09-20] MEDS: Albuterol HFA INHALER* 8 gm MDI INH SCH ×6 (00:56→21:32)
[2017-09-20] MEDS: Heparin VIAL(*) 5000 UNITS/ML VIAL (FIVE THOUSAND) SUBCUT SCH ×3 (05:21→22:28)
[2017-09-20 06:56] LABS: ABS Basophils 0.2 10^3/ul (0-0.2); ABS Eosinophils 0.4 10^3/ul (0-0.6); ABS Lymphocytes 0.8 10^3/ul (1.0-4.8); ABS Monocytes 0.7 10^3/ul (0-0.8); ABS Neutrophils 6.6 10^3/ul (1.5-7.7); ABS Nucleated RBC 0.01 10^3/ul; Hematocrit 46 % (42-52); Lymphocyte % 9.2 % (25-47); Mean Corpuscular HGB Conc 33 g/dl (31-36); Mean Corpuscular Hemoglobin 32 pg (27-31); Mean Corpuscular Volume 96 fL (80-94); Nucleated Red Blood Cells % 0.1; Red Blood Count 4.74 10^6/ul (4.0-5.4); Red Cell Distribution Width 15 % (10.5-15); White Blood Count 8.8 10^3/ul (3.5-10.8)
[2017-09-20 07:27] LABS: Platelet Count 165 10^3/ul (150-450)
[2017-09-20 07:31] LABS: EGFR Non-African American 76.1 (>60)
[2017-09-20] MEDS: Mometasone/Formoter 200/5 MDI INH SCH ×2 (08:13→21:31)
[2017-09-20] MEDS: Tiotropium CAP.INH* CAP.INH/18 MCG (USE ORDER SET !) INH SCH (08:14)
[2017-09-20] MEDS: Nicotine PATCH 14 MG/24 HR* PATCH TRANSDERM SCH (09:34)
[2017-09-20] MEDS: Aspirin Low Dose CHEW TAB* 81 MG PO SCH (09:35)
[2017-09-20] MEDS: Famotidine SUSP* 40 MG/5 ML ORAL.SYRIN PO SCH (09:35)
[2017-09-20] MEDS: predniSONE TAB* 20 MG PO SCH (09:35)
--- NOTE | 2017-09-20 12:07 | RAD ---
Indication: Cerebellar infarct on CT. Image Sequences: Sagittal and axial T1, axial T2, FLAIR, diffusion and susceptibility weighted images of the brain were obtained. Correlation is made with previous exam dated September 14, 2017. Ventricular structures are midline. No midline shift is noted. There are periventricular signal abnormalities in the cerebrum and the deep white matter and subcortical white matter consistent with chronic ischemic white matter change. There are areas of increased signal in the cerebellum bilaterally. The diffusion-weighted images demonstrate mild restriction of diffusion. These likely represent subacute bilateral cerebellar infarcts. Susceptibility weighted images demonstrate no evidence of hemosiderin deposits. No other areas of restriction of diffusion are noted. IMPRESSION: Mild restriction of diffusion in the cerebellar hemispheres bilaterally consistent with subacute bilateral cerebellar infarcts.
--- NOTE | 2017-09-20 13:08 | PN ---
Subjective Date of Service: 09/20/17 Interval History: Patient seen and examined at bedside. Denies fever, chills, shortness of breath , chest discomfort, N/V/D. Pt reports generalized weakness. Pt states that he uses 2L O2 at home. Patient is ok to participate in 3 hours of therapy daily. Family History: Unchanged from Admission Social History: Unchanged from Admission Past Medical History: Unchanged from Admission Objective Active Medications: Acetaminophen (Tylenol Adult Liq*) 650 mg PO Q6H PRN Reason: FEVER Albuterol (Ventolin Hfa Inhaler*) 2 puff INH [id number] AWAKE [facility] Aspirin (Aspirin Low Dose Tab*) 81 mg PO DAILY [facility] Atorvastatin Calcium (Lipitor*) 40 mg PO 1700 [facility] Dextrose (D50w Syringe 50 Ml*) 25 gm IV PUSH ONCE PRN Reason: FS < 60 Famotidine (Pepcid Susp*) 20 mg PO DAILY [facility] Heparin Sodium (Porcine) (Heparin Vial(*)) 5,000 units SUBCUT Q8HR [facility] Lactulose (Lactulose*) 30 ml PO DAILY PRN Reason: CONSTIPATION Lorazepam (Ativan Inj*) 0.5 mg IV PUSH Q4H PRN Reason: AGITATION Mometasone Furoate/Formoterol Fumar (Dulera 200/5 Mdi*) 2 puff INH BID [facility] Nicotine (Nicotine Patch 14 Mg/24 Hr*) 1 patch TRANSDERM DAILY [facility] Pharmacy Profile Note (Nicotine Patch Removal Note*) 1 note PATCH OFF 2100 [facility] Prednisone (Deltasone Tab*) 20 mg PO DAILY [facility] Tiotropium [place] (Spiriva Cap.Inh*) 1 cap INH DAILY [facility] Vital Signs - 8 hr 09/20/17 09/20/17 09/20/17 05:51 06:20 07:37 Temperature 97.7 F 97.7 F Pulse Rate 79 77 80 Respiratory 20 17 Rate Blood Pressure 143/85 130/81 120/76 (mmHg) O2 Sat by Pulse 96 95 95 Oximetry 09/20/17 09/20/17 08:00 12:30 Temperature 98.0 F Pulse Rate 103 Respiratory 18 18 Rate Blood Pressure 98/67 (mmHg) O2 Sat by Pulse 95 Oximetry Oxygen Devices in Use Now: Nasal Cannula - 3L Appearance: NAD, sitting up in a chair. Ears/Nose/Mouth/Throat: Mucous Membranes Moist Respiratory: Symmetrical Chest Expansion and Respiratory Effort, Clear to Auscultation Cardiovascular: NL Sounds; No Murmurs; No JVD, RRR Abdominal: NL Sounds; No Tenderness; No Distention Extremities: No Edema Skin: No Rash or Ulcers Neurological: Alert and Oriented x 3, NL Muscle Strength and Tone, - - Smile symmetric, tongue midline, hand cafeteria operator equal, no pronator drift. Lines/Tubes/Other Access: Clean, Dry and Intact Peripheral IV - site benign Nutrition: Taking PO's Result Diagrams: 09/20/17 06:22 09/20/17 06:22 Assess/Plan/Problems-Billing Mr. Marin is a 66 year old with a history of polysubstance abuse, positive for cocaine and marijuana on admission, h/o COPD, ? Hep C, found down on the day of admission. Admitted with acute hypoxic, hypercarbic respiratory failure that required intubation with cerebellar infarcts now improved and on the floor. - Patient Problems (1) Acute respiratory failure with hypoxia and hypercapnia Code(s): J96.01 - ACUTE RESPIRATORY FAILURE WITH HYPOXIA; J96.02 - ACUTE RESPIRATORY FAILURE WITH HYPERCAPNIA SNOMED Code(s): 98797520 Comment: - Resolving. - Continues on O2 at 3L. - Bicarb up from Lasix. - Currently on Diamox which will end this evening. - If oxygen cannot be weaned he may need higher dose steroids for a longer period of time. He declines Bipap. - Continue with nebulizers. (2) Cerebellar infarct Code(s): I63.9 - CEREBRAL INFARCTION, UNSPECIFIED SNOMED Code(s): 28817329 Comment: - MRI shows bilateral subacute cerebellar infarct. - Appreciate neuro consult, will touch base with them now that MRI is completed. - Will get another echocardiogram with bubble study. - Check fasting lipids in AM and CTA head/neck. (3) COPD exacerbation Code(s): J44.1 - CHRONIC OBSTRUCTIVE PULMONARY DISEASE W (ACUTE) EXACERBATION SNOMED Code(s): 923712699834718 Comment: - Was on 2L at home, currently remains on 3L. - Continue steroid taper, standing nebs, dulera, and spiriva. (4) Hypoxic encephalopathy Code(s): G93.1 - ANOXIC BRAIN DAMAGE, NOT ELSEWHERE CLASSIFIED SNOMED Code(s) : 813244049 Comment: Resolved. (5) Hilar mass Code(s): R91.8 - OTHER NONSPECIFIC ABNORMAL FINDING OF LUNG FIELD SNOMED Code( s): 445385259 Comment: - Will need pulm consult as outpatient or next week as inpatient if still here. - Would need EBUS procedure for bx if patient agreeable. (6) Polysubstance abuse Code(s): F19.10 - OTHER PSYCHOACTIVE SUBSTANCE ABUSE, UNCOMPLICATED SNOMED Code(s): 466837750 Comment: - hx of cocaine use in the past. - SW consult. (7) Tobacco abuse Code(s): Z72.0 - TOBACCO USE SNOMED Code(s): 953678293 Comment: - Continue Nicotine patch (8) DVT prophylaxis Code(s): PSC4833 - SNOMED Code(s): 075639810 Comment: - SQ Heparin (9) Full code status Code(s): Z78.9 - OTHER SPECIFIED HEALTH STATUS SNOMED Code(s): 263290038 Status and Disposition: Inpatient. Plan to discharge to [facility] when medically stable.
[2017-09-20] MEDS ORDERED: Iohexol 350* (CONTRAST) 500 ML MDV IV ONE (13:46)
--- NOTE | 2017-09-20 16:02 | RAD ---
INDICATION: Subacute CVA. COMPARISON: Comparison is made with a prior CT of the brain from September 14, 2017. TECHNIQUE: A CT of the brain was performed without intravenous contrast enhancement followed by a CT angiogram of the head and neck following intravenous injection of 80 ml of Omnipaque 350 nonionic contrast. Contiguous axial sections were obtained from the thoracic inlet through the skull vertex. Images were reconstructed in the coronal and sagittal planes and in a 3-D volume rendered format. The distal cervical internal carotid artery diameter is used as the denominator for stenosis measurement. FINDINGS: CT OF THE BRAIN: The ventricles, cisterns and sulci appear within normal limits. There are bilateral hypodense cerebellar lesions which appear similar to slightly less prominent than on the prior CT of the brain from September 14, 2017. RIGHT CAROTID: The common and internal carotid arteries appear patent without evidence for hemodynamically significant stenosis. There is mild calcific plaque within the carotid bulb and proximal internal carotid artery. LEFT CAROTID: The common and internal carotid arteries appear patent without evidence for hemodynamically significant stenosis. There is mild calcific plaque within the carotid bulb and proximal internal carotid artery. VERTEBRALS: The vertebral arteries appear patent without evidence for high-grade stenosis. The left vertebral artery is dominant. CTA BRAIN: The internal carotid, anterior and middle cerebral arteries appear patent without evidence for high-grade stenosis or occlusion. There is mild calcific plaque within the cavernous portion of the internal carotid arteries. The vertebral, basilar and posterior cerebral arteries appear patent without evidence for high-grade stenosis or occlusion. No gross focal perfusion abnormalities are seen. No aneurysm or vascular malformation is seen. NECK: The thyroid, parotid and submandibular glands appear to be within normal limits. No significant enlarged lymph nodes are seen. The lung apices appear clear. There is moderate to severe centrilobular emphysematous change. The paranasal sinuses appear clear IMPRESSION: 1. NO EVIDENCE FOR HEMODYNAMICALLY SIGNIFICANT CAROTID STENOSIS. 2. NO EVIDENCE FOR LARGE VESSEL INTRACRANIAL THROMBUS. 3. BILATERAL HYPODENSE CEREBELLAR LESIONS UNCHANGED TO SLIGHTLY SMALLER THAN ON THE PRIOR EXAM. RECOMMEND CONTINUE FOLLOW-UP TO DEMONSTRATE STABILITY. CPT II Codes: 3100F
[2017-09-20] MEDS: Atorvastatin* 40 MG TAB PO SCH (16:37)
--- NOTE | 2017-09-20 17:03 | ECHO ---
Patient: JULES MARTINEZ [facility] Rec#: [id number] : 1950 Date: 09/20/2017 Age: 66y Height: 170.2 cm / 67.0 in Weight: 86.2 kg / 190.0 lbs Sex: M BSA: 2 Room#: [facility] Admit Date#: 09/11/2017 Type: Inpatient Referring: Norma Wilde NP Reading: Ryan Winston MD Circulation Man: Heidi Fitzgerald RN RDCS CC: Estefany Silva MD Transthoracic Echocardiogram Indication: CVA BP: 98/67 HR: 97 Rhythm: NSR Findings History: Polysubstance abuse, COPD, smoker, Lyme disease Technical Comments: The study quality is fair. The study is technically limited due to the patient's history of COPD. The study is technically limited due to the patient's smoking history. Completed at 1641. Left Ventricle: The left ventricular chamber size is normal. Mild concentric left ventricular hypertrophy is observed. Global left ventricular wall motion and contractility are within normal limits. The left ventricle appears hyperdynamic. The estimated ejection fraction is greater than 65%. There is an E to A reversal in the mitral valve flow pattern suggestive of diastolic dysfunction. Left Atrium: The left atrial chamber size is normal. Right Ventricle: The right ventricle wall thickness is mildly increased. The right ventricular cavity size is normal. The right ventricular global systolic function is mildly reduced. Right Atrium: The right atrium is slightly dilated. The bubble study is negative. A patent foramen ovale is not demonstrated with color Doppler and agitated contrast. Aortic Valve: The aortic valve structure is not well visualized. The aortic valve leaflets are mildly thickened. There is no evidence of aortic regurgitation. There is no evidence of aortic stenosis. Mitral Valve: The mitral valve leaflets are mildly thickened. There is no evidence of mitral regurgitation. There is no evidence of mitral stenosis. Tricuspid Valve: The tricuspid valve leaflets are normal. There is trace tricuspid regurgitation. Unable to estimate the right ventricular systolic pressure. There is no tricuspid stenosis. Pulmonic Valve: The pulmonic valve structure is not well visualized. There is no evidence of pulmonic regurgitation. There is no pulmonic stenosis. Pericardium: There is no significant pericardial effusion. A pericardial fat pad is visualized. Aorta: The ascending aorta is not well visualized. There is no dilatation of the aortic arch. There is no dilation of the aortic root. Pulmonary Artery: The main pulmonary artery is not well visualized. Venous: The inferior vena cava appears normal in size. There is a greater than 50% respiratory change in the inferior vena cava dimension. Contrast: Normal saline was used as contrast for the bubble study. Images 110 and 111. Conclusions The study quality is suboptimal in some views. Mild concentric left ventricular hypertrophy is observed. The left ventricle appears hyperdynamic. The estimated ejection fraction is greater than 65%. There is an E to A reversal in the mitral valve flow pattern suggestive of diastolic dysfunction. The right ventricle wall thickness is mildly increased. The right ventricular global systolic function is mildly reduced. A patent foramen ovale is not demonstrated with color Doppler and agitated contrast. Similar to 12.19.17 Measurements Name Value Normal Range RVDdMajor (2D) 2.9 cm (2.2 - 4.4) RVAW (2D) 0.8 cm (0.2 - 0.5) RAd ISD 4CH 5 cm (3.4 - 4.9) RA (A4C)W 3.3 cm (2.9 - 4.6) IVSd (2D) 1.2 cm (0.6 - 1) LVPWd (2D) 1.2 cm (0.6 - 1) LVIDd (2D) 3.7 cm (3.6 - 5.4) LVIDs (2D) 2.6 cm - LV FS (2D) 29 % (25 - 45) Aortic Annulus 2.1 cm (1.4 - 2.6) Ao root diameter (2D) 3.1 cm (2.1 - 3.5) Aortic arch 3.1 cm (1.8 - 3.4) LA dimension (AP) 2D 2.9 cm (2.3 - 3.8) LAd ISD 4CH 5 cm (2.9 - 5.3) LA ISD 4CH W 3.4 cm (2.5 - 4.5) Name Value Normal Range LA ESV SP 4CH (A/L) 36 ml - LA ESV SP 2CH (A/L) 32 ml - LA ESV BP (A/L) 35 ml - LA ESV BP (A/L) index 17.5 ml/m2 - LA ESV SP 4CH (MOD) 35 ml - LA ESV SP 2CH (MOD) 31 ml - Name Value Normal Range MV E-wave Vmax 0.65 m/sec - MV deceleration time 282 msec - MV A-wave Vmax 1.1 m/sec - MV E:A ratio 0.6 ratio - LV septal e' Vmax 0.08 m/sec - LV lateral e' Vmax 0.09 m/sec - LV E:e' septal ratio 8.1 ratio - LV E:e' lateral ratio 7.2 ratio - Name Value Normal Range AV Vmax 1.6 m/sec - AV VTI 25.8 cm - AV peak gradient 11 mmHg - AV mean gradient 6 mmHg - LVOT Vmax 1.5 m/sec - LVOT VTI 22.1 cm - LVOT peak gradient 9.5 mmHg - LVOT mean gradient 4.4 mmHg - KRISSY Vmax 0.75 m/sec - Name Value Normal Range IVC diameter 1.6 cm - Name Value Normal Range PV Vmax 1.2 m/sec -
[2017-09-20] MEDS: Nicotine Patch Removal NOTE PATCH OFF SCH (22:29)
[2017-09-21] MEDS: Albuterol HFA INHALER* 8 gm MDI INH SCH ×4 (00:26→11:22)
[2017-09-21] MEDS: Heparin VIAL(*) 5000 UNITS/ML VIAL (FIVE THOUSAND) SUBCUT SCH (05:20)
[2017-09-21] MEDS: Tiotropium CAP.INH* CAP.INH/18 MCG (USE ORDER SET !) INH SCH (07:43)
[2017-09-21] MEDS: Mometasone/Formoter 200/5 MDI INH SCH (07:44)
[2017-09-21 08:00] VITALS: BP 139/77
[2017-09-21] MEDS: predniSONE TAB* 20 MG PO SCH (08:15)
[2017-09-21] MEDS: Nicotine PATCH 14 MG/24 HR* PATCH TRANSDERM SCH (08:15)
[2017-09-21] MEDS: Aspirin Low Dose CHEW TAB* 81 MG PO SCH (08:15)
[2017-09-21] MEDS: Famotidine SUSP* 40 MG/5 ML ORAL.SYRIN PO SCH (08:15)
--- NOTE | 2017-09-21 10:37 | PN ---
Subjective Date of Service: 09/21/17 Interval History: Patient seen and examined at bedside. Denies fever, chills, shortness of breath , chest discomfort, N/V/D. Pt states that he was able to ambulate 180 feet this morning. Tele: Sinus rhythm, rate 80-90's. Family History: Unchanged from Admission Social History: Unchanged from Admission Past Medical History: Unchanged from Admission Objective Active Medications: Acetaminophen (Tylenol Adult Liq*) 650 mg PO Q6H PRN Reason: FEVER Albuterol (Ventolin Hfa Inhaler*) 2 puff INH [id number] AWAKE [facility] Aspirin (Aspirin Low Dose Tab*) 81 mg PO DAILY [facility] Atorvastatin Calcium (Lipitor*) 40 mg PO 1700 [facility] Dextrose (D50w Syringe 50 Ml*) 25 gm IV PUSH ONCE PRN Reason: FS < 60 Famotidine (Pepcid Susp*) 20 mg PO DAILY [facility] Heparin Sodium (Porcine) (Heparin Vial(*)) 5,000 units SUBCUT Q8HR [facility] Lactulose (Lactulose*) 30 ml PO DAILY PRN Reason: CONSTIPATION Lorazepam (Ativan Inj*) 0.5 mg IV PUSH Q4H PRN Reason: AGITATION Mometasone Furoate/Formoterol Fumar (Dulera 200/5 Mdi*) 2 puff INH BID [facility] Nicotine (Nicotine Patch 14 Mg/24 Hr*) 1 patch TRANSDERM DAILY [facility] Pharmacy Profile Note (Nicotine Patch Removal Note*) 1 note PATCH OFF 2100 [facility] Prednisone (Deltasone Tab*) 20 mg PO DAILY [facility] Tiotropium [place] (Spiriva Cap.Inh*) 1 cap INH DAILY [facility] Vital Signs - 8 hr 09/21/17 09/21/17 07:42 08:00 Temperature 97.8 F Pulse Rate 93 Respiratory 24 20 Rate Blood Pressure 139/77 (mmHg) O2 Sat by Pulse 94 Oximetry Oxygen Devices in Use Now: Nasal Cannula - 2L Appearance: NAD, laying in bed Ears/Nose/Mouth/Throat: Mucous Membranes Moist Respiratory: Symmetrical Chest Expansion and Respiratory Effort, Clear to Auscultation - , diminished Cardiovascular: NL Sounds; No Murmurs; No JVD, RRR Abdominal: NL Sounds; No Tenderness; No Distention Extremities: No Edema Skin: No Rash or Ulcers Neurological: Alert and Oriented x 3, NL Muscle Strength and Tone Lines/Tubes/Other Access: Clean, Dry and Intact Peripheral IV - site benign Nutrition: Taking PO's Result Diagrams: 09/20/17 06:22 09/20/17 06:22 Assess/Plan/Problems-Billing Mr. Marin is a 66 year old with a history of polysubstance abuse, positive for cocaine and marijuana on admission, h/o COPD, ? Hep C, found down on the day of admission. Admitted with acute hypoxic, hypercarbic respiratory failure that required intubation with cerebellar infarcts now improved and on the floor. - Patient Problems (1) Acute respiratory failure with hypoxia and hypercapnia Code(s): J96.01 - ACUTE RESPIRATORY FAILURE WITH HYPOXIA; J96.02 - ACUTE RESPIRATORY FAILURE WITH HYPERCAPNIA SNOMED Code(s): 96228569 Comment: - Acute on Chronic. - Now on O2 at 2L. - Continue with nebulizers. (2) Cerebellar infarct Code(s): I63.9 - CEREBRAL INFARCTION, UNSPECIFIED SNOMED Code(s): 85320839 Comment: - MRI shows bilateral subacute cerebellar infarct. - Appreciate neuro consult. - Echocardiogram without significant findings. - CTA head/neck without significant findings. (3) COPD exacerbation Code(s): J44.1 - CHRONIC OBSTRUCTIVE PULMONARY DISEASE W (ACUTE) EXACERBATION SNOMED Code(s): 300866945235266 Comment: - Was on 2L at home, now on 2L. - Continue steroid taper, standing nebs, dulera, and spiriva. (4) Hypoxic encephalopathy Code(s): G93.1 - ANOXIC BRAIN DAMAGE, NOT ELSEWHERE CLASSIFIED SNOMED Code(s) : 350455499 Comment: Resolved. (5) Hilar mass Code(s): R91.8 - OTHER NONSPECIFIC ABNORMAL FINDING OF LUNG FIELD SNOMED Code( s): 069635091 Comment: - Will need pulm consult as outpatient or next week as inpatient if still here. - Would need EBUS procedure for bx if patient agreeable. (6) Polysubstance abuse Code(s): F19.10 - OTHER PSYCHOACTIVE SUBSTANCE ABUSE, UNCOMPLICATED SNOMED Code(s): 242440672 Comment: - hx of cocaine use in the past. - SW consult. (7) Tobacco abuse Code(s): Z72.0 - TOBACCO USE SNOMED Code(s): 982564107 Comment: - Continue Nicotine patch (8) DVT prophylaxis Code(s): PQC9740 - SNOMED Code(s): 009522138 Comment: (9) Full code status Code(s): Z78.9 - OTHER SPECIFIED HEALTH STATUS SNOMED Code(s): 370759493 Status and Disposition: Inpatient. Stable for discharge to [facility] today.
[2017-09-21] MEDS ORDERED: Albuterol HFA INHALER* 8 gm MDI INH PRN (11:20)
--- NOTE | 2017-09-21 13:21 | PN ---
NEUROLOGICAL FOLLOWUP NOTE: DATE OF VISIT: PATIENT OF: Norma RICK Mohr HISTORY: This is a neurological followup on this 66-year-old man because of an abnormal MRI scan. He presented on 09/11/17 and was seen by Dr. Reyez of Neurology and then also by Dr. Nichole for altered mental status and then a CT scan that showed probable bilateral cerebellar strokes, with a plan made to obtain an MRI scan when he was more stable. He presented with being down at home with apparent hypoxia and hypotension and has a history also of marijuana and cocaine use and was positive for both when he initially came in. He denies any drug use to me today, although there is a history of both cocaine use and tobacco use and marijuana. MEDICATIONS: Currently is on: 1. Albuterol 2 puffs q.4 hours. 2. Aspirin 81 mg daily. 3. Lipitor 40 mg daily. 4. Lactulose 30 mg daily. 5. Dulera 2 puffs b.i.d. 6. Nicotine patch. 7. Prednisone 20 mg daily. 8. Spiriva 1 cap inhale daily. PHYSICAL EXAMINATION: Temperature 97.8, pulse 107, respirations 20, blood pressure 106/67. He was alert and oriented x3. Cranial nerves II through XII were normal except for coarse saccadesbut no nystagmus and normal extraocular movements. Motor exam revealed normal strength. He had some mild past- pointing bilaterally and he had an ataxic gait and needed an assist and could only take a few steps. Chest: Clear. Cardiovascular: Regular rate and rhythm. Abdomen: Soft with positive bowel sounds. DIAGNOSTIC DATA: Reviewed his MRI scan, which showed bilateral cerebellar stroke without any significant edema and this has looked somewhat patchy. It appeared subacute. IMPRESSION AND PLAN: I discussed with him as well as his nurse practitioner that it is possible that his drugs, specifically the cocaine could have caused vasospasm and caused a stroke, but we will look for other causes including getting a CTA to rule out basilar artery insufficiency. He had a poor quality echo and he will get a better quality echo. He has not had fasting lipid profile and he is going to get that as well. Thank you for sharing his case. [id number]/[facility] #: [id number] ESE
--- NOTE | 2017-09-22 06:17 | DS ---
CC: Dr. Estefany Silva; Dr. Mendosa * DISCHARGE SUMMARY: DATE OF ADMISSION: 09/11/17 DATE OF DISCHARGE: 09/21/17 ATTENDING PHYSICIAN: Dr. Lauro Alcocer * (dictated by Norma Kincaid NP) . PRIMARY CARE PROVIDER: Dr. Estefany Silva. PRIMARY DIAGNOSES: 1. Acute on chronic respiratory failure. 2. Chronic obstructive pulmonary disease exacerbation. 3. Cerebellar infarct bilateral. 4. Hypoxic encephalopathy, resolved. 5. Hilar mass. 6. Polysubstance abuse. SECONDARY DIAGNOSIS: Tobacco abuse. CONSULTATIONS WHILE IN THE HOSPITAL: Dr. Sdiney Reyez, Dr. Mavis Nichole, and Dr. Tyson Montoya with Neurology. STUDIES WHILE IN THE HOSPITAL: 1. Brain CT on 09/09/17. Radiologist's impression: No acute intracranial pathology. Bilateral proptosis. 2. Chest x-ray on 09/11/17. Radiologist's impression: Lines and tubes as above. No active cardiopulmonary disease. 3. Chest, abdomen and pelvis CT on 09/11/17. Radiologist's impression: Right hilar mass. Enlarged mediastinal and retrocrural lymph nodes. Enlarged retroperitoneal lymph nodes. Mildly enlarged heterogenous liver with fatty infiltration and possible mass versus focal sparing. Recommend a contrast enhanced CT of the chest, abdomen, and pelvis for further evaluation. Left adrenal mass. [id number] emphysematous change. Anterior abdominal wall hernia containing fat. 4. Transthoracic echocardiogram from 09/11/17. Driver's conclusion: The study quality is poor. The study is technically limited due to the patient being intubated and on a ventilator. In general, the images are suboptimal for accurate assessment. The left ventricular chamber size is decreased. Moderate- to-less concentric left ventricular hypertrophy is observed. The left ventricle appears hyperdynamic. The estimated ejection fraction is greater than 65%. The right ventricle is mildly dilated. The right ventricle global systolic function is mildly reduced. The right atrium is slightly dilated. There is trace tricuspid regurgitation. No reports of prior studies are offered for comparison. 5. Electroencephalogram on 09/11/17. Neurologist's impression: This is an abnormal EEG due to the lack of the expected background organization and diffuse mixed frequency slowing. However, the EEG retained reactivity. These findings are consistent with a diffuse nonspecific encephalopathy of a moderate degree. There are no epileptiform abnormalities. Episodes of body tightening and shaking are nonepileptic in nature. 6. Chest x-ray from 09/12/17. Radiologist's impression: Lines and tubes as above. No active cardiopulmonary disease. 7. Chest x-ray on 09/14/17. Radiologist's impression: Small right basilar infiltrate. 8. Brain CT on 09/14/17. Radiologist's impression. Suspect interval development of bilateral nonhemorrhagic cerebral infarcts. 9. Chest x-ray on 09/16/17. Radiologist's impression: Interstitial edema improved. Right subhilar mass persists. 10. Brain MRI from 09/20/17. Radiologist's impression: Mild restriction of diffusion in the cerebellar hemispheres bilaterally consistent with subacute bilateral cerebellar infarcts. 11. Transthoracic echocardiogram on 09/20/17. Driver's conclusion. The study quality is suboptimal in some views. Mild concentric left ventricular hypertrophy is observed. The left ventricle appears hyperdynamic. The estimated ejection fraction is greater than 65%. There is an E to O reversal in the mitral valve flow pattern suggestive of diastolic dysfunction. The right ventricle wall thickness is mildly increased. The right ventricular global systolic function is mildly reduced. A patent foramen ovale is not demonstrated with color Doppler and agitated contrast. Similar to 09/11/17. 12. Head CTA on 09/20/17. Radiologist's impression: No evidence for hemodynamically significant carotid stenosis. No evidence for large vessel intracranial thrombus. Bilateral hypodense cerebellar lesions unchanged to slightly smaller than on the prior exam. Recommend continued follow up to demonstrate stability. HOSPITAL MEDICATIONS: 1. Acetaminophen 650 mg oral every 6 hours as needed for fever or pain. 2. Albuterol HFA 2 puffs inhalation every 4 hours while awake. 3. Aspirin 81 mg oral daily. 4. Atorvastatin 40 mg oral daily. 5. Dextrose 25 g IV once as needed for glucose less than 60. 6. Pepcid 20 mg oral daily. 7. Heparin 5000 units subcutaneous every 8 hours. 8. Lactulose 30 mg oral daily as needed for constipation. 9. Lorazepam 0.5 mg IV push every 4 hours as needed for anxiety. 10. Dulera 200/5 two puffs inhalation twice daily. 11. Nicotine 14 mg/24 hours one patch transdermal daily, remove nicotine patch at 2100 daily. 12. Prednisone 20 mg oral daily for one more day followed by 10 mg oral daily for three days. 13. Spiriva one capsule inhalation daily. HOME MEDICATIONS: 1. Abdominal binder apply daily as needed. 2. Spiriva two capsules inhalation daily. 3. DuoNeb 2.5/0.5 mg one neb inhalation 4 times daily. 4. Albuterol HFA inhaler 2 puffs inhalation every 4 hours as needed for shortness of breath or wheeze. 5. Symbicort 160/4.5 two puffs inhalation twice daily. 6. Benazepril 10 mg oral daily. 7. Augmentin 875 mg oral every 12 hours. HISTORY OF PRESENT ILLNESS/HOSPITAL COURSE: Mr. Marin is a 66-year-old male with past medical history significant for tobacco abuse, COPD, polysubstance abuse, who was last seen the day prior to his admission and had been found unresponsive in his home. The patient was found to have pinpoint pupils. He was given Narcan without effect. He was manually bagged. He had pulses present. He was brought to the emergency room where he was found to be hypoxic with oxygen saturations in the 70s, tachycardic. The initial blood pressure was less than 110. He was unresponsive and was intubated while in the emergency room to protect his airway. Shortly after that, he became hypotensive , was given 3 L of normal saline and started on Levophed. The patient was reactive to painful stimuli. He had a cough and gag reflex. He was noted to have mottling on his peripheral extremities. No obvious signs of trauma. He had labs showing a white blood cell count of 14 and creatinine of 1.9 and sinus tachycardia. The patient's family reported the patient smoked marijuana and used cocaine in the past. They reported no recent illnesses. The patient had a brain CT showing no acute findings. He had an abdomen and pelvis CT showing a right hilar mass, mediastinal lymph node, retroperitoneal lymph node, enlarged liver with possible mass, left adrenal mass and [id number] emphysematous changes and an anterior abdominal hernia. The patient was initially admitted to the ICU on Levophed with no sedation. He had encephalopathy that was suspected to be metabolic versus toxic versus ischemic versus hypoxic injury. He also had an acute hypercarbic and hypoxic respiratory failure. Also, he had a possible acute COPD exacerbation. He was in shock. During the patient's stay, he was eventually extubated. The patient reports that he is on 2 L via nasal cannula at home. His [id number] hypoxic and hypercarbic respiratory failure resolved. He was weaned down to his 2 L nasal cannula. The patient's COPD exacerbation was continued on a steroid taper, standing nebs Dulera and Spiriva. His hypoxic encephalopathy resolved. He had repeat CT showing subacute cerebellar infarct. He had an MRI again showing bilateral subacute cerebellar infarcts. He had been seen in consultation by Neurology. He had no PFO seen on echocardiogram and no vascular abnormalities on his CTA of his head and neck. He was starting on aspirin and statin. His fasting lipids showed a cholesterol of 113 and LDL of 66. Triglycerides of 79. It was felt that his stoke could have been secondary to vascular constriction form cocaine use. The patient was seen by Physical Therapy and felt that he had rehab needs. The patient was also noted to have a hilar mass on admission that will need outpatient followup. The patient had a [facility] referral and it was felt that he could benefit from admission to [facility] prior to discharge to home. Mr. Marin is stable for discharge to [facility] today. Vital signs are as follows: Temperature 97.8, heart rate 93, respiratory rate 20, O2 sat 94% on 2 L via nasal cannula, blood pressure 139/77. DISCHARGE PLAN: Mr. Marin will be discharged to [facility] today. Activity as tolerated. He should be on a regular diet. 1. As far as the patient's COPD exacerbation, he should be continued on a prednisone taper. He will need prednisone 20 mg for one more day and then after that decreased to 10 mg for 3 days. The patient should be continued on Dulera and Spiriva with albuterol inhalers as needed. 2. As far as the patient's chronic hypoxic respiratory failure, he should be continued on oxygen 2 L via nasal cannula. 3. For the patient's hilar mass, he needs a Pulmonary consult. He should be seen either while at inpatient on [facility] by Dr. Mendosa next week or should be assisted in the setting up a Pulmonology consult as an outpatient once he was discharged as he will likely need EBUS procedure for a biopsy if he is agreeable. 4. As far as the patient's tobacco abuse, he should be continued on a nicotine patch and strongly encouraged to stop smoking. 5. As far as his cerebellar stroke, he should be continued on aspirin and atorvastatin. 6. Hypertension. The patient's benazepril has been on hold during his stay. This can be resumed if needed, although he has been normotensive during his hospitalization. I recommend following his blood pressures. The patient should return to the emergency room for any new stroke symptoms, chest pain, or shortness of breath. 7. Polysubstance abuse. I recommend the patient having a social work consult related to his polysubstance abuse as this did not occur while he was an inpatient. This is a summarized report of a complex medical history and hospital stay. For further details, please see the entire medical record. TIME SPENT: Time for this discharge was approximately 60 minutes, greater than half of that was spent with the patient discussing medications, discharge plans , and instructions. CONDITION ON DISCHARGE: Stable. Reviewed by BENJAMIN SANDERS 09/25/171955 [id number] #: [id number] MTDD
== END 2017-09-21 11:19 | DRG 130 ==
LOC: ED 10:57 → MERGE 10:57 → ICU 13:59 → MED 09-18 15:23 → MEDTELE 09-20 13:32
PROVIDERS: ADMIT Internal Medicine Critical Care Medicine; ATTEND Internal Medicine
PROC: 05HN33Z Insertion of Infusion Device into Left Internal Jugular Vein, Percutaneous Approach (ICD-10-PCS; principal; 2017-09-11)
PROC: 3E033XZ Introduction of Vasopressor into Peripheral Vein, Percutaneous Approach (ICD-10-PCS; 2017-09-11)
PROC: 03HB33Z Insertion of Infusion Device into Right Radial Artery, Percutaneous Approach (ICD-10-PCS; 2017-09-11)
PROC: 5A1955Z Respiratory Ventilation, Greater than 96 Consecutive Hours (ICD-10-PCS; 2017-09-11)
PROC: 0BH17EZ Insertion of Endotracheal Airway into Trachea, Via Natural or Artificial Opening (ICD-10-PCS; 2017-09-11)
PROC: 4A10X4Z Monitoring of Central Nervous Electrical Activity, External Approach (ICD-10-PCS; 2017-09-11)
DX: J96.21 Acute and chronic respiratory failure with hypoxia (principal); I63.9 Cerebral infarction, unspecified; J69.0 Pneumonitis due to inhalation of food and vomit; R57.9 Shock, unspecified; G92 Toxic encephalopathy; G93.1 Anoxic brain damage, not elsewhere classified; J44.1 Chronic obstructive pulmonary disease with (acute) exacerbation; N17.9 Acute kidney failure, unspecified; J96.22 Acute and chronic respiratory failure with hypercapnia; R59.0 Localized enlarged lymph nodes; R59.9 Enlarged lymph nodes, unspecified; E27.9 Disorder of adrenal gland, unspecified; F14.10 Cocaine abuse, uncomplicated; F12.10 Cannabis abuse, uncomplicated; B19.20 Unspecified viral hepatitis C without hepatic coma; K76.9 Liver disease, unspecified; R91.8 Other nonspecific abnormal finding of lung field; K76.0 Fatty (change of) liver, not elsewhere classified; K43.9 Ventral hernia without obstruction or gangrene; I07.1 Rheumatic tricuspid insufficiency; F17.200 Nicotine dependence, unspecified, uncomplicated; Z79.82 Long term (current) use of aspirin; Z79.52 Long term (current) use of systemic steroids; Z79.01 Long term (current) use of anticoagulants
CPT/HCPCS: 36415; 36600; 70450; 70496; 70498; 70551; 71010; 71250; 74176; 80048; 80053; 80061; 80202; 80307; 80320; 80329; 81003; 81015; 82140; 82550; 82803; 83036; 83605; 83735; 83880; 84100; 84443; 84484; 85025; 85027; 85610; 87040; 87070; 87086; 87205; 87502; 87641; 93005; 93306; 94002; 94003; 94640; 94760; 95822; 99406; A9270-GY; G0480; J0171; J0330; J1644; J1940; J2060; J2250; J2310; J2543; J2704; J2930; J3010; J3105; J3370; J3475; J7512; Q9967

== ENCOUNTER 2017-09-21 10:17 | Inpatient (IN) | payer OTHER ==
[2017-09-21] MEDS ORDERED: Al Hydrox/Mg Hydrox/Simet LIQ* 30 ML UDC PO PRN (11:40)
[2017-09-21] MEDS ORDERED: Senna TAB PO PRN (11:40)
[2017-09-21] MEDS ORDERED: Bisacodyl SUPP* 10 MG SUPP PR PRN (11:40)
[2017-09-21] MEDS ORDERED: Albuterol HFA INHALER* 8 gm MDI INH PRN ×2 (11:45→23:32)
[2017-09-21] MEDS: Albuterol HFA INHALER* 8 gm MDI INH SCH ×3 (13:51→23:36)
[2017-09-21] MEDS: Heparin VIAL(*) 5000 UNITS/ML VIAL (FIVE THOUSAND) SUBCUT SCH ×2 (14:01→21:01)
--- NOTE | 2017-09-21 14:58 | HP ---
[facility]: [facility]; Dr. Alcocer REHABILITATION ADMISSION NOTE: DATE OF ADMISSION: 09/21/17 PRIMARY CARE PROVIDER: [facility] NEUROLOGIST: Dr. Alcocer. REASON FOR ADMISSION: Bilateral ischemic cerebellar stroke and anoxic encephalopathy in the setting of respiratory failure. HISTORY OF PRESENT ILLNESS: This is a 66-year-old man who was found unresponsive at home on 09/11/17 with oxygen saturation in the 70s and tachycardic. He was intubated and brought to the emergency room. His systolic blood pressure dropped to the 70s and he was put on pressors. Testing showed marijuana and cocaine in his system. He was admitted to the intensive care unit and empirically treated with antibiotics, steroids, and supportive care. He was seen by Dr. Reyez in Neurology, and felt to likely have at least anoxic brain injury and possible stroke. It was recommended he have an MRI of the brain when he was medically stable. He did have a CT scan on 09/14/17 which showed bilateral cerebellar infarcts, new compared to the day of admission on . EEG was consistent with encephalopathy. He required supportive care both from respiratory standpoint as well as pressors for quite sometime. He was on tube feeds. He had acute kidney injury. Ultimately, he was able to be put on BiPAP, but he refused using BiPAP at night when he became more conscious and waking up. He is known to have COPD and at home was on 2 L of oxygen per day. He has been able to as of yesterday wean down to his home oxygen level. On initial scans on presentation, he had a CT of the chest, abdomen, and pelvis. This did reveal a right hilar mass, lymphadenopathy in the mediastinal and retroperitoneal lymph nodes, question liver mass, left adrenal mass, hernia , and COPD. Plan was for him to be seen by Dr. Mendosa when she is available to consider biopsy for more definitive diagnosis. He had an MRI of the brain on , once again showing subacute bilateral cerebellar infarcts. CTA on 09/20, showed bilateral hypodense lesions that were stable and smaller compared to the prior CT of the head. These were once again in the cerebellum bilaterally. Transthoracic echo on 09/20/17 showed mild LVH, hyperdynamic left ventricle, ejection fraction greater than 65% and diastolic dysfunction. There was no patent foramen ovale. He had a fall in the hospital onto his bottom on the night of 09/19/17. No known injuries. Prior to admission, he was independent with all mobility and activities of daily living. With occupational therapy here, he has required moderate amount of assistance for lower body dressing, bathing, and toileting. He has required a minimal amount of assistance for eating. With physical therapy, he has required supervision for bed mobility. He can transfer with contact guard assistance using rolling walker. He can ambulate with minimal amount of assistance using a rolling walker. PAST MEDICAL HISTORY: 1. COPD with home oxygen, typically at 2 L per minute. 2. Hepatitis C. 3. Hypertension. PAST SURGICAL HISTORY: 1. Status post hernia surgery. 2. Status post left parotid excision. MEDICATIONS: 1. Tylenol 650 mg q.6 hours p.r.n. 2. Albuterol MDI 2 puffs q.4 hours while awake. 3. Aspirin 81 mg daily. 4. Lipitor 40 mg daily. 5. Pepcid 20 mg daily. 6. Heparin 5000 units q.8 hours p.r.n. 7. Dulera 200/5 MDI 2 puffs b.i.d. 8. Nicotine patch 14 mg for 24 hours, but the patient denies smoking cigarettes recently. 9. Prednisone taper, currently at 20 mg daily starting on 09/19/17. 10. Spiriva 1 cap inhaled daily. ALLERGIES: FLOMAX. FAMILY HISTORY: Father had hypertension, at age 94. His mother had cancer , unknown type; at age 58. SOCIAL HISTORY: He lives alone, but has some supportive neighbors that are willing to help him. He has used cocaine and marijuana for approximately 10 years intermittently. He reports quitting cigarettes about 3yrs ago and denies drinking alcohol. He lives in a trailer with 2 steps to enter. He has been on disability for the last 10 years due to COPD. He used to be a [employer]enas. He has supportive neighbors and a girl friend who he would like to be his health care proxy. REVIEW OF SYSTEMS: See history of present illness and past medical history. The remainder of the 13-system review was completed. No other significant findings. He has been known to become tachycardic with physical exertion. PHYSICAL EXAMINATION GENERAL: Well developed, well nourished, appearing stated age. VITAL SIGNS: Temperature 98.2, heart rate 101, respirations ranging from 24 to 30, oxygenation 93% on 2 L, blood pressure 146/82. HEENT: Normocephalic, atraumatic. Oropharynx is clear, but missing multiple teeth and poor dentition. Moist mucous membranes. LUNGS: Decreased breath sounds bilaterally, but they appear clear. HEART: Slightly tachy, but regular. ABDOMEN: Active bowel sounds. Soft, nontender, and nondistended. EXTREMITIES: No clubbing, cyanosis, or edema. NEUROLOGICAL EXAM: Upper and lower extremities, motor 5/5 bilaterally. Normal pinprick sensation. Cranial nerves II through XII are intact. MUSCULOSKELETAL EXAM: He has functional range of motion of all of his major joints. MENTAL STATUS: No acute distress. He is alert and appropriate. IMPRESSION: A 66-year-old man status post respiratory failure with anoxic encephalopathy and bilateral cerebellar ischemic strokes. He will be admitted so he can return to independent living. PLAN: 1. Encephalopathy and stroke. Continue with baby aspirin daily and Lipitor. Neurology followup after discharge. 2. Acute respiratory failure and COPD. Continue with his current medications. Incentive spirometer. Oxygen at 2 L per minute. Continue with steroid taper by halfing dose every 5 days. 3. Acute kidney injury. Follow up labs. 4. Mass in his right lung, left adrenal, and possible liver. Pulmonary consult next week. The silo painter is out of town and a message was left at her office regarding this consultation. 5. History of substance abuse. He declines any consultation with Psychiatry right now or antidepressants. He does not feel he needs a nicotine patch. He says that he is done with any substances at this time. 6. DVT prophylaxis. Continue subcutaneous heparin. 7. Impaired mobility. He will be seen by Physical Therapy for bed mobility, transfer training, ambulation and stairs using the most appropriate assistive device. 8. Impaired self-care. He will be seen by Occupational Therapy for ADL and IADL training and equipment evaluation. 9. Impaired cognition. He will be seen by Speech Therapy for swallow screen and cognitive evaluation. 10. Advance directives. He desires full code. He says his girlfriend will be his healthcare proxy. We will have social work help him with the appropriate paperwork. 11. Hypertension. The patient reports being on amlodipine 10 mg daily prior to admission. Monitor his vitals and see when this could be restarted. 12. Estimated length of stay is 7 to 10 days and return to home with friends support. [id number] #: [id number] ESE
[2017-09-21] MEDS: Atorvastatin* 40 MG TAB PO SCH (16:44)
[2017-09-21] MEDS: Mometasone/Formoter 200/5 MDI INH SCH (19:21)
[2017-09-21] MEDS: Docusate CAP* 100 MG PO SCH (21:00)
[2017-09-22] MEDS: Acetaminophen TAB* 325 MG PO PRN (04:30)
[2017-09-22] MEDS: Heparin VIAL(*) 5000 UNITS/ML VIAL (FIVE THOUSAND) SUBCUT SCH ×3 (04:31→21:45)
[2017-09-22] MEDS: Aspirin EC Low Dose* 81 MG TAB.EC PO SCH (08:57)
[2017-09-22] MEDS: predniSONE TAB* 20 MG PO SCH (08:57)
[2017-09-22] MEDS: Famotidine TAB* 20 MG PO SCH (08:57)
[2017-09-22] MEDS: Tiotropium CAP.INH* CAP.INH/18 MCG (USE ORDER SET !) INH SCH (08:57)
[2017-09-22] MEDS: Docusate CAP* 100 MG PO SCH ×3 (08:57→19:59)
[2017-09-22] MEDS: Mometasone/Formoter 200/5 MDI INH SCH ×2 (08:58→21:45)
--- NOTE | 2017-09-22 10:25 | PN ---
Progress Note - Progress Note Date of Service: 09/22/17 Note: No concerns overnight. Nursing and spech notes reviewed. PT/OT evaluations in progress. No chest pain, shortness of breath or abdominal pain. Seen by speech therapy yesterday and does not have needs. Acetaminophen (Tylenol Tab*) 650 mg PO Q6H PRN PRN Reason: FEVER > 101 Last Admin: 09/22/17 04:30 Dose: 650 mg Al Hydrox/Mg Hydrox/Simethicone (Maalox Plus*) 30 ml PO Q6H PRN PRN Reason: INDIGESTION Albuterol (Ventolin Hfa Inhaler*) 2 puff INH Q4H PRN PRN Reason: SOB/WHEEZING Aspirin (Aspirin Ec Low Dose*) 81 mg PO DAILY [facility] Last Admin: 09/22/17 08:57 Dose: 81 mg Atorvastatin Calcium (Lipitor*) 40 mg PO 1700 [facility] Last Admin: 09/21/17 16:44 Dose: 40 mg Bisacodyl (Dulcolax Supp*) 10 mg [facility] DAILY PRN PRN Reason: CONSTIPATION Device (Tiotropium Inhaler Device*) 1 each .SEE ORDER .USE w/ SPIRIVA CAPS [facility] Docusate Sodium (Colace Cap*) 100 mg PO BID [facility] Last Admin: 09/22/17 09:01 Dose: Not Given Famotidine (Pepcid Tab*) 20 mg PO DAILY [facility] Last Admin: 09/22/17 08:57 Dose: 20 mg Heparin Sodium (Porcine) (Heparin Vial(*)) 5,000 units SUBCUT Q8HR [facility] Last Admin: 09/22/17 04:31 Dose: 5,000 units Mometasone Furoate/Formoterol Fumar (Dulera 200/5 Mdi*) 2 puff INH BID [facility] Last Admin: 09/22/17 08:58 Dose: 2 puff Prednisone (Deltasone Tab*) 20 mg PO DAILY [facility] Stop: 09/23/17 23:59 Last Admin: 09/22/17 08:57 Dose: 20 mg Prednisone (Deltasone Tab*) 10 mg PO DAILY [facility] Stop: 09/28/17 23:55 Prednisone (Deltasone Tab*) 5 mg PO DAILY [facility] Stop: 10/03/17 23:55 Senna (Senokot Tab*) 2 tab PO BEDTIME PRN PRN Reason: CONSTIPATION Tiotropium Waite (Spiriva Cap.Inh*) 1 cap INH DAILY ETELVINA Last Admin: 09/22/17 08:57 Dose: 1 cap Vital Signs 09/21/17 09/21/17 09/21/17 16:00 16:03 16:05 Temperature 98.2 F Pulse Rate 90 Respiratory 28 28 Rate Blood Pressure 120/78 (mmHg) O2 Sat by Pulse 97 97 Oximetry 09/21/17 09/21/17 09/21/17 19:21 23:46 23:50 Temperature 99.1 F Pulse Rate 90 77 Respiratory 28 18 18 Rate Blood Pressure 120/70 (mmHg) O2 Sat by Pulse 97 96 96 Oximetry 09/22/17 09/22/17 09/22/17 04:41 08:00 09:30 Temperature 98.7 F Pulse Rate 85 Respiratory 18 18 Rate Blood Pressure 138/90 (mmHg) O2 Sat by Pulse 95 95 94 Oximetry 09/22/17 09/22/17 09:53 09:54 Temperature Pulse Rate Respiratory Rate Blood Pressure (mmHg) O2 Sat by Pulse 88 94 Oximetry GEN: No acute distress. He is alert and appropriate. LUNGS: Decreased breath sounds bilaterally, but they appear clear. HEART: Regular rate and rhythm ABDOMEN: Active bowel sounds. Soft, nontender, and nondistended. EXTREMITIES: No clubbing, cyanosis, or edema. NEUROLOGICAL EXAM: Upper and lower extremities, motor 5/5 bilaterally. IMPRESSION: 66-year-old man status post respiratory failure with anoxic encephalopathy and bilateral cerebellar ischemic strokes. PLAN: # Encephalopathy and stroke. Continue with baby aspirin daily and Lipitor. Neurology followup after discharge. # Acute respiratory failure and COPD. Continue with his current medications. Incentive spirometer. Oxygen at 2 L per minute. Continue with steroid taper by halfing dose every 5 days. # Acute kidney injury. Follow up labs tomorrow. # Mass in his right lung, left adrenal, and possible liver. I discussed this with him today and it is the first that he has become aware of this issue. His philosphy is to not worry about it until he knows he has something more to worry about. He also does not plan to tell his girlfriend until there is a more definitive diagnosis. Pulmonary consult next week. The oral surgery assistant is out of town and a message was left at her office regarding this consultation for this week. # History of substance abuse. He declines any consultation with Psychiatry right now or antidepressants. He says that he is done with any substances at this time and is not interested in drug rehab. # DVT prophylaxis. Continue subcutaneous heparin. # Advance directives. He desires full code. He says his girlfriend will be his healthcare proxy. We will have social work help him with the appropriate paperwork. # Hypertension. The patient reports being on amlodipine 10 mg daily prior to admission. Monitor his vitals and see when this could be restarted. # Estimated length of stay is 7 to 10 days and return to home with friends support.
--- NOTE | 2017-09-22 12:25 | PMRUTEAM ---
PMRU: Goals Current Status: Nursing: Current Status Skin Deviations [Left Shoulder Bruise ] Skin Deviations [Bilateral Arm Bruise ] Skin Deviations [Abdomen] Bruise Skin Deviations [Back] Bruise Skin Deviations [Bilateral Bruise Neck] Physical Therapy: Current Status Bed Mobility Assistance Independent Transfer Moblility Assistance contact guard Ambulation Assistance contact guard Ambulation Assistive Devices Rolling Walker Stairs Assistance Not Tested OCCUPATIONAL THERAPY: CURRENT STATUS: supervision upper body dressing. Min assist for bathing, lower body dressing, toileting and toilet transfers. SPEECH THERAPY: no dysphagia. No significant deficit in communication or cognition. Social Work: Current Status Discharge Plan return home with home care svs and family support Potential for Family Training TBD - pt lives alone Anticipated Discharge Home Destination Discharge With home care svs and support from family and friends Goals: PHYSICAL THERAPY GOALS: independent bed mobility, transfers with a walker, ambulation with a walker 150ft and ascend/descend 5 stairs with 1-2 rails. OCCUPATIONAL THERAPY GOALS: modified independent bathing, dressing, toileting and simple meal prep. Independent eating. Nursing goals: safe self administration of medications. Social Work: Goals Discharge Plan return home with home care svs and family support Potential for Family Training TBD - pt lives alone Anticipated Discharge Home Destination Discharge With home care svs and support from family and friends Care Plan: Care Plan Communication-Improve/Maintain Start: 09/22/17 01:58 Freq: DAILY Status: Active Target: Protocol: Activity Type Activity Date Activity User E-Sign Co-Sign Detail Recorded Client Recorded Date Recorded By Document 09/22/17 01:58 [id number] 09/22/17 01:59 [id number] 09/22/17 01:58 PMRU Outcome: Communication/Cognitive Status Outcome/Goals Use Comm Tools/ Devices Makes Needs Known Effectively DVT Prophylaxis- Improve/Maintain Start: 09/22/17 01:58 Freq: QSHIFT Status: Active Target: Protocol: Activity Type Activity Date Activity User E-Sign Co-Sign Detail Recorded Client Recorded Date Recorded By Document 09/22/17 01:58 [id number] 09/22/17 01:59 [id number] 09/22/17 01:58 PMRU Outcome: DVT Prophylaxis Outcome/Goals Remains Free of DVT TEDS Stockings on Every AM, Off at HS Discharge Planning - Improve/Maintain Start: 09/22/17 01:58 Freq: DAILY Status: Active Target: Protocol: Activity Type Activity Date Activity User E-Sign Co-Sign Detail Recorded Client Recorded Date Recorded By Document 09/22/17 01:58 [id number] [email or web address] 09/22/17 01:59 [id number] 09/22/17 01:58 PMRU Outcome: Discharge Planning Update Patient Family No Outcome/Goals Demonstrates Understanding of Discharge Plan Education-Improve/Maintain Start: 09/21/17 13:09 Freq: QSHIFT Status: Active Target: Protocol: Activity Type Activity Date Activity User E-Sign Co-Sign Detail Recorded Client Recorded Date Recorded By Document 09/22/17 01:56 [id number] 09/22/17 01:57 [id number] 09/22/17 01:56 PMRU Outcome: Education Outcome/Goals Demonstrate/ Verbalize Understanding of Written Discharge Instructions Demonstrates Skills Encourage Questions Neurological- Improve/Maintain Start: 09/22/17 01:58 Freq: QSHIFT Status: Active Target: Protocol: Activity Type Activity Date Activity User E-Sign Co-Sign Detail Recorded Client Recorded Date Recorded By Document 09/22/17 01:58 [id number] 09/22/17 01:59 [id number] 09/22/17 01:58 PMRU Outcome: Neurological Weakness/Aphasia Weakness Outcome/Goals Maintain/ Achieve Baseline Neurological Status Maintain/ Improve Strength/ROM Respiratory - Improve/Maintain Start: 09/21/17 13:09 Freq: QSHIFT Status: Active Target: Protocol: Activity Type Activity Date Activity User E-Sign Co-Sign Detail Recorded Client Recorded Date Recorded By Document 09/22/17 01:56 [id number] 09/22/17 01:57 [id number] 09/22/17 01:56 PMRU Outcome: Respiratory Does Patient Have a Trach No Outcome/Goals Maintain/ Improve O2 Sat per MD Order Maintain/ Improve Activity Tolerance Prevent Pneumonia/ Atelectasis Outcome/Goals Met Comment o2 in place Safety- Improve/Maintain Start: 09/21/17 13:09 Freq: QSHIFT Status: Active Target: Protocol: Activity Type Activity Date Activity User E-Sign Co-Sign Detail Recorded Client Recorded Date Recorded By Document 09/22/17 01:56 [id number] 09/22/17 01:57 [id number] 09/22/17 01:56 PMRU Outcome: Safety Outcome/Goals Remain Free of Injury or Harm Cooperates with Safety Measures for Least Restrictive Environment Prevent Falls/ Injury Outcome/Goals Met Comment PA in place Medicine Note: Length of Stay: [11 days] Anticipated Discharge Destination: Home Tentative Discharge Date: [10/02/17] Discharged to: [home]
[2017-09-22] MEDS: Atorvastatin* 40 MG TAB PO SCH (16:28)
[2017-09-23] MEDS: Heparin VIAL(*) 5000 UNITS/ML VIAL (FIVE THOUSAND) SUBCUT SCH ×3 (05:31→21:27)
[2017-09-23] MEDS: Docusate CAP* 100 MG PO SCH ×2 (07:20→20:07)
[2017-09-23] MEDS: Mometasone/Formoter 200/5 MDI INH SCH ×2 (08:12→20:48)
[2017-09-23] MEDS: Spiriva Inhaler DEVICE* 1 EACH DEVICE SCH (08:13)
[2017-09-23] MEDS: predniSONE TAB* 20 MG PO SCH (08:13)
[2017-09-23] MEDS: Tiotropium CAP.INH* CAP.INH/18 MCG (USE ORDER SET !) INH SCH (08:13)
[2017-09-23] MEDS: Aspirin EC Low Dose* 81 MG TAB.EC PO SCH (08:13)
[2017-09-23] MEDS: Famotidine TAB* 20 MG PO SCH (08:13)
--- NOTE | 2017-09-23 11:18 | PN ---
Progress Note - Progress Note Date of Service: 09/23/17 Note: No concerns overnight. Nursing and therapy notes reviewed. No chest pain, shortness of breath or abdominal pain. Lab up to draw labs, but were unsuccessful on first attempt. Phlebotomy will be back up soon to attempt again. He expresses some concern about the masses and says "I would never survive surgery." Acetaminophen (Tylenol Tab*) 650 mg PO Q6H PRN PRN Reason: FEVER > 101 Last Admin: 09/22/17 04:30 Dose: 650 mg Al Hydrox/Mg Hydrox/Simethicone (Maalox Plus*) 30 ml PO Q6H PRN PRN Reason: INDIGESTION Albuterol (Ventolin Hfa Inhaler*) 2 puff INH Q4H PRN PRN Reason: SOB/WHEEZING Aspirin (Aspirin Ec Low Dose*) 81 mg PO DAILY [facility] Last Admin: 09/23/17 08:13 Dose: 81 mg Atorvastatin Calcium (Lipitor*) 40 mg PO 1700 [facility] Last Admin: 09/22/17 16:28 Dose: 40 mg Bisacodyl (Dulcolax Supp*) 10 mg IA DAILY PRN PRN Reason: CONSTIPATION Device (Tiotropium Inhaler Device*) 1 each .SEE ORDER .USE w/ SPIRIVA CAPS [facility] Last Admin: 09/23/17 08:13 Dose: 1 each Docusate Sodium (Colace Cap*) 100 mg PO BID [facility] Last Admin: 09/23/17 07:20 Dose: Not Given Famotidine (Pepcid Tab*) 20 mg PO DAILY [facility] Last Admin: 09/23/17 08:13 Dose: 20 mg Heparin Sodium (Porcine) (Heparin Vial(*)) 5,000 units SUBCUT Q8HR [facility] Last Admin: 09/23/17 05:31 Dose: 5,000 units Mometasone Furoate/Formoterol Fumar (Dulera 200/5 Mdi*) 2 puff INH BID [facility] Last Admin: 09/23/17 08:12 Dose: 2 puff Prednisone (Deltasone Tab*) 20 mg PO DAILY [facility] Stop: 09/23/17 23:59 Last Admin: 09/23/17 08:13 Dose: 20 mg Prednisone (Deltasone Tab*) 10 mg PO DAILY [facility] Stop: 09/28/17 23:55 Prednisone (Deltasone Tab*) 5 mg PO DAILY [facility] Stop: 10/03/17 23:55 Senna (Senokot Tab*) 2 tab PO BEDTIME PRN PRN Reason: CONSTIPATION Tiotropium [place] (Spiriva Cap.Inh*) 1 cap INH DAILY [facility] Last Admin: 09/23/17 08:13 Dose: 1 cap Vital Signs 09/22/17 09/22/17 09/23/17 15:30 19:24 00:01 Temperature 98.4 F 99.0 F Pulse Rate 97 77 Respiratory 22 18 Rate Blood Pressure 117/69 126/71 (mmHg) O2 Sat by Pulse 93 92 90 Oximetry 09/23/17 05:55 Temperature 98.4 F Pulse Rate 76 Respiratory 20 Rate Blood Pressure 146/64 (mmHg) O2 Sat by Pulse 92 Oximetry GEN: No acute distress. alert and appropriate. LUNGS: Decreased breath sounds bilaterally, but clear. HEART: Regular rate and rhythm ABDOMEN: Active bowel sounds. Soft, nontender, and nondistended. EXTREMITIES: No clubbing, cyanosis, or edema. NEUROLOGICAL EXAM: Upper and lower extremities, motor 5/5 bilaterally. : urine in urinal at bedside is tea colored. IMPRESSION/PLAN: 66-year-old man status post respiratory failure with anoxic encephalopathy and bilateral cerebellar ischemic strokes. # Encephalopathy and stroke. Continue with baby aspirin daily and Lipitor. Neurology follow up after discharge. # Acute respiratory failure and COPD. Continue with his current medications. Incentive spirometer. Oxygen at 2 L per minute. This was initiated at home the day before his admission. Continue with steroid taper by halfing dose every 5 days. # Acute kidney injury. Follow up labs today. # Mass in his right lung, left adrenal, and possible liver. I discussed this with the first step is diagnosis and that the plan is for Dr. Mendosa to see him this week when she returns. Treatment depends on the diagnosis and may not involve surgery, but he would need to have a procedure to assist diagnosis. Dr. Mendosa is out of town and a message was left at her office regarding this consultation for this week. # History of substance abuse. He declines consultation with Psychiatry right now or antidepressants. He says that he is done with drugs and is not interested in drug rehab. # DVT prophylaxis. Continue subcutaneous heparin. # Advance directives. He desires full code. He says his girlfriend will be his healthcare proxy. We will have social work help him with the appropriate paperwork. # Hypertension. The patient reports being on amlodipine 10 mg daily prior to admission. Seems stable without it. # Estimated discharge 10/02/17. This was discussed with him. He wants to go home as soon as possible.
[2017-09-23 11:57] LABS: ABS Basophils 0 10^3/ul (0-0.2); ABS Eosinophils 0.1 10^3/ul (0-0.6); ABS Lymphocytes 0.7 10^3/ul (1.0-4.8); ABS Monocytes 0.3 10^3/ul (0-0.8); ABS Neutrophils 6.5 10^3/ul (1.5-7.7); ABS Nucleated RBC 0 10^3/ul; Eosinophil % 1.6 % (0-6); Hematocrit 45 % (42-52); Hemoglobin 14.8 g/dl (14.0-18.0); Lymphocyte % 8.8 % (25-47); Mean Corpuscular HGB Conc 33 g/dl (31-36); Mean Corpuscular Hemoglobin 31 pg (27-31); Mean Corpuscular Volume 95 fL (80-94); Mean Platelet Volume 9 um3 (7.4-10.4); Nucleated Red Blood Cells % 0; Platelet Count 190 10^3/ul (150-450); Red Blood Count 4.76 10^6/ul (4.0-5.4); Red Cell Distribution Width 14 % (10.5-15); White Blood Count 7.6 10^3/ul (3.5-10.8)
[2017-09-23 12:23] LABS: EGFR Non-African American 83.9 (>60)
[2017-09-23] MEDS: Atorvastatin* 40 MG TAB PO SCH (17:18)
[2017-09-23] MEDS: Acetaminophen TAB* 325 MG PO PRN (19:28)
[2017-09-24] MEDS: Heparin VIAL(*) 5000 UNITS/ML VIAL (FIVE THOUSAND) SUBCUT SCH ×3 (05:16→21:36)
[2017-09-24] MEDS: Famotidine TAB* 20 MG PO SCH (08:09)
[2017-09-24] MEDS: Aspirin EC Low Dose* 81 MG TAB.EC PO SCH (08:09)
[2017-09-24] MEDS: Docusate CAP* 100 MG PO SCH ×2 (08:09→19:51)
[2017-09-24] MEDS: predniSONE TAB* 10 MG PO SCH (08:09)
[2017-09-24] MEDS: Tiotropium CAP.INH* CAP.INH/18 MCG (USE ORDER SET !) INH SCH (08:09)
[2017-09-24] MEDS: Mometasone/Formoter 200/5 MDI INH SCH ×2 (08:11→19:50)
--- NOTE | 2017-09-24 14:43 | PN ---
Progress Note - Progress Note Date of Service: 09/24/17 Note: Nba was visited. He has no complaints, he is eager to get home. Declines any problem with substance abuse. Current Medications Acetaminophen (Tylenol Tab*) 650 mg PO Q6H PRN PRN Reason: FEVER > 101 Last Admin: 09/23/17 19:28 Dose: 650 mg Al Hydrox/Mg Hydrox/Simethicone (Maalox Plus*) 30 ml PO Q6H PRN PRN Reason: INDIGESTION Albuterol (Ventolin Hfa Inhaler*) 2 puff INH Q4H PRN PRN Reason: SOB/WHEEZING Last Admin: 09/23/17 20:53 Dose: 2 puff Aspirin (Aspirin Ec Low Dose*) 81 mg PO DAILY [facility] Last Admin: 09/24/17 08:09 Dose: 81 mg Atorvastatin Calcium (Lipitor*) 40 mg PO 1700 [facility] Last Admin: 09/23/17 17:18 Dose: 40 mg Bisacodyl (Dulcolax Supp*) 10 mg MD DAILY PRN PRN Reason: CONSTIPATION Device (Tiotropium Inhaler Device*) 1 each .SEE ORDER .USE w/ SPIRIVA CAPS [facility] Last Admin: 09/23/17 08:13 Dose: 1 each Docusate Sodium (Colace Cap*) 100 mg PO BID [facility] Last Admin: 09/24/17 08:09 Dose: Not Given Famotidine (Pepcid Tab*) 20 mg PO DAILY [facility] Last Admin: 09/24/17 08:09 Dose: 20 mg Heparin Sodium (Porcine) (Heparin Vial(*)) 5,000 units SUBCUT Q8HR [facility] Last Admin: 09/24/17 13:13 Dose: 5,000 units Mometasone Furoate/Formoterol Fumar (Dulera 200/5 Mdi*) 2 puff INH BID [facility] Last Admin: 09/24/17 08:11 Dose: 2 puff Prednisone (Deltasone Tab*) 10 mg PO DAILY [facility] Stop: 09/28/17 23:55 Last Admin: 09/24/17 08:09 Dose: 10 mg Prednisone (Deltasone Tab*) 5 mg PO DAILY [facility] Stop: 10/03/17 23:55 Senna (Senokot Tab*) 2 tab PO BEDTIME PRN PRN Reason: CONSTIPATION Tiotropium [place] (Spiriva Cap.Inh*) 1 cap INH DAILY [facility] Last Admin: 09/24/17 08:09 Dose: 1 cap Vital Signs Temp Pulse Resp BP Pulse Ox 98.0 F 81 20 142/87 91 09/24/17 04:50 09/24/17 04:50 09/24/17 04:50 09/24/17 04:50 09/24/17 10:49 EXAM: GEN: No acute distress. Alert LUNGS: Clear bilaterally. HEART: Regular rhythm ABDOMEN: Active bowel sounds. Soft, nontender, and nondistended. EXTREMITIES: No clubbing, cyanosis, or edema. NEUROLOGICAL EXAM: Upper and lower extremities, motor 5/5 bilaterally. ASSESSMENT/PLAN: 1 . Encephalopathy and stroke. Baby aspirin/Lipitor. Neurology follow up after discharge. 2. Acute respiratory failure and COPD. Continue with his current medications. Incentive spirometer. Oxygen at 2 L per minute. This was initiated at home the day before his admission. Continue with steroid taper by halving dose every 5 days. 3. Acute kidney injury. Follow 4. Mass in his right lung, left adrenal, and possible liver. I discussed this with the first step is diagnosis and that the plan is for Dr. Mendosa to see him this week when she returns. Treatment depends on the diagnosis/staging. 5. History of substance abuse. He declines consultation with Psychiatry right now or antidepressants. He says that he is done with drugs and is not interested in drug rehab. 6. DVT prophylaxis. Continue subcutaneous heparin. 7. Advance directives. He desires full code. He says his girlfriend will be his healthcare proxy. We will have social work help him with the appropriate paperwork. 8. Hypertension. The patient reports being on amlodipine 10 mg daily prior to admission. May need to go back on it.
[2017-09-24] MEDS: Atorvastatin* 40 MG TAB PO SCH (16:57)
[2017-09-25] MEDS: Heparin VIAL(*) 5000 UNITS/ML VIAL (FIVE THOUSAND) SUBCUT SCH ×3 (05:10→21:42)
[2017-09-25] MEDS: Tiotropium CAP.INH* CAP.INH/18 MCG (USE ORDER SET !) INH SCH (09:03)
[2017-09-25] MEDS: Famotidine TAB* 20 MG PO SCH (09:04)
[2017-09-25] MEDS: Aspirin EC Low Dose* 81 MG TAB.EC PO SCH (09:04)
[2017-09-25] MEDS: predniSONE TAB* 10 MG PO SCH (09:04)
[2017-09-25] MEDS: Mometasone/Formoter 200/5 MDI INH SCH ×2 (09:05→20:06)
[2017-09-25] MEDS: Docusate CAP* 100 MG PO SCH ×2 (09:05→20:06)
--- NOTE | 2017-09-25 12:34 | PMRUTEAM ---
PMRU: Goals Current Status: Nursing: Current Status Skin Deviations [Left Shoulder Bruise ] Skin Deviations [Bilateral Arm Bruise ] Skin Deviations [Abdomen] Bruise Skin Deviations [Back] Bruise Skin Deviations [Bilateral Bruise Neck] Skin Deviation Description [ previous access site Bilateral Neck] Physical Therapy: Current Status Bed Mobility Assistance Supervision Transfer Moblility Assistance Supervision,Contact Guard Assist Transfer/Bed Mobility None,Rolling Walker Recommended Devices Transfer Mobility Comment SPT with or with out assistive device. Ambulation Assistance Supervision,Contact Guard Assist Ambulation Assistive Devices Rolling Walker Number of Feet Patient 150 x 2 Ambulated Ambulation Comment reciprocal type gait with or with out an assistive device. Stairs Assistance Independent Stairs Recommended Devices Two Rails Number of Stairs 10 Occupational Therapy: Current Status Upper Body Dressing Supervision Lower Body Dressing Supervision Bathing Supervision Toileting Supervision Toilet Transfer Supervision Shower Transfer Supervision Eating Independent Rec Therapy: Current Status Summary of Assessment and RT assessment complete and pt. is aware of RT Clinical Impression services, con't to provide leisure visits regularly. Treatment Goals Patient will engage in recreation and leisure activities while on the unit. Treatment Plan Provide and encourage involvement in RT services. Social Work: Current Status Discharge Plan return home with home care svs and support from family and friends Potential for Family Training TBD Anticipated Discharge Home Destination Discharge With with home care svs and support from family and friends Nutrition: Current Status Monitoring full assessment planned 10/01. He is taking a regular diet fairly well and without reported or observed dysphagia. TRAIN CONTROL TECHNICIAN working w/pt on cog/ling deficits. Labs 09/23 remarkable for elevated LFTs only. Skin is intact; bruising only. Having BMs almost daily. No immediate nutrition concers identified. Initial goals as outlined below. Goals: Physical Therapy: Initial Goals Bed Mobility Assistance Independent Transfer Mobility Assistance Independent Transfer/Bed Mobility Rolling Walker Recommended Devices Ambulation Independent Ambulation Recommended Devices Rolling Walker Ambulation Distance 150 Wheelchair Propulsion Ability Independent Stairs Assistance Independent Stair Recommended Devices Two Rails Number of Stairs 10 Physical Therapy: Updated Goals Bed Mobility Assistance Independent Transfer Mobility Assistance Independent Transfer/Bed Mobility Rolling Walker Recommended Devices Ambulation Assistance Independent Ambulation Assistive Devices Rolling Walker Ambulation Distance (ft) 150 Stairs Assistance Independent Stairs Recommended Devices Two Rails Number of Stairs 10 Home Exercise Program Independent Assistance Occupational Therapy: Initial Goals Goals to be Completed in (Days 10 days ) Upper Body Bathing Routine Modified Independent with Lower Body Bathing Routine Modified Independent with Upper Body Dressing Routine Independent Lower Body Dressing Routine Independent Toilet Hygeine and Clothing Modified Independent with Management Routine Toilet Transfer Routine Modified Independent with Tub Transfer Routine Modified Independent with Functional Transfers for ADL Modified Independent with Grooming Routine Independent Feeding Routine Independent Light Housekeeping Tasks Supervision/Set Up Nutrition: Goals Intervention Goals 1. adequate po intake to maintain stable wt, hydration, and lean body mass 2. pt will tolerate regular diet without reported or observed swallowing deficits 3. regulation of bowel pattern without c/o constipation or diarrhea Social Work: Goals Discharge Plan return home with home care svs and support from family and friends Potential for Family Training TBD Anticipated Discharge Home Destination Discharge With with home care svs and support from family and friends Care Plan: Care Plan ADL's - Improve/Maintain Start: 09/22/17 01:58 Freq: DAILY Status: Active Target: Protocol: Activity Type Activity Date Activity User E-Sign Co-Sign Detail Recorded Client Recorded Date Recorded By Document 09/22/17 12:28 [id number] [id number] 09/22/17 12:28 [id number] 09/22/17 12:28 PMRU Outcome: ADL's/ADL Transfers Orders/Interventions Occupational Therapy Evaluation & Treatment Device Yes Patient to receive OT 5x/wk for 60-120 Therex min/day Self Care Management Group Therapy Neuromuscular ReEducation UE/LE ADL's with Assist Yes ADL Transfers with Assist Yes Toileting: Transfers,Clothing Management Yes ,Hygeine w/Assist Light Kitchen/Laundry w/Assist Yes Progression Toward Outcome/Goals Progressing Communication-Improve/Maintain Start: 09/22/17 01:58 Freq: DAILY Status: Active Target: Protocol: Activity Type Activity Date Activity User E-Sign Co-Sign Detail Recorded Client Recorded Date Recorded By Document 09/25/17 11:40 [id number] 09/25/17 11:40 [id number] 09/25/17 11:40 PMRU Outcome: Communication/Cognitive Status Outcome/Goals Use Comm Tools/ Devices Makes Needs Known Effectively Progression Toward Outcomes/Goals Progressing DVT Prophylaxis- Improve/Maintain Start: 09/22/17 01:58 Freq: DAILY Status: Active Target: Protocol: Activity Type Activity Date Activity User E-Sign Co-Sign Detail Recorded Client Recorded Date Recorded By Document 09/25/17 11:40 [id number] [id number] 09/25/17 11:40 [id number] 09/25/17 11:40 PMRU Outcome: DVT Prophylaxis Outcome/Goals Remains Free of DVT TEDS Stockings on Every AM, Off at HS Progression Toward Outcome/Goals Progressing Discharge Planning - Improve/Maintain Start: 09/22/17 01:58 Freq: DAILY Status: Active Target: Protocol: Activity Type Activity Date Activity User E-Sign Co-Sign Detail Recorded Client Recorded Date Recorded By Document 09/25/17 11:40 [id number] [email or web address] 09/25/17 11:40 [id number] 09/25/17 11:40 PMRU Outcome: Discharge Planning Identify Patient Needs yes Update Patient Family No Outcome/Goals Demonstrates Understanding of Discharge Plan Progression Toward Outcome/Goals Progressing Education-Improve/Maintain Start: 09/21/17 13:09 Freq: DAILY Status: Active Target: Protocol: Activity Type Activity Date Activity User E-Sign Co-Sign Detail Recorded Client Recorded Date Recorded By Document 09/25/17 11:40 [id number] [email or web address] 09/25/17 11:40 [id number] 09/25/17 11:40 PMRU Outcome: Education Outcome/Goals Demonstrate/ Verbalize Understanding of Written Discharge Instructions Demonstrates Skills Encourage Questions Progression Toward Outcome/Goals Progressing Mobility- Improve/Maintain Start: 09/21/17 13:09 Freq: DAILY Status: Active Target: Protocol: Activity Type Activity Date Activity User E-Sign Co-Sign Detail Recorded Client Recorded Date Recorded By Document 09/22/17 17:44 [id number] [email or web address] 09/22/17 17:45 [id number] 09/22/17 17:44 PMRU Outcome: Mobility Physical Therapy Evaluation and Yes Treatment Activity OOB with Assistance Yes WBAT Yes Device Yes Assistance Yes Patient to be seen 5x/wk for 60-120 min/ Therex day for: Mobility Training Gait Training Balance Outcome/Goals Maintain/ Achieve Baseline Mobility Status Improve Mobility Status Demonstrates Proper Use of Assistive Devices Free from Complications of Immobility Bed Mobility Yes: independent Transfers Yes: independent with rolling walker Gait x ft Yes: independent with rolling walker 150' Up/Down Stairs Yes: independent up/ down 10 with 2 rails. Neurological- Improve/Maintain Start: 09/22/17 01:58 Freq: DAILY Status: Active Target: Protocol: Activity Type Activity Date Activity User E-Sign Co-Sign Detail Recorded Client Recorded Date Recorded By Document 09/25/17 11:40 [id number] [id number] 09/25/17 11:40 [id number] 09/25/17 11:40 PMRU Outcome: Neurological Weakness/Aphasia Weakness Weakness/Aphasia Comment generalized Outcome/Goals Maintain/ Achieve Baseline Neurological Status Maintain/ Improve Strength/ROM Progression Toward Outcome/Goals Progressing Respiratory - Improve/Maintain Start: 09/21/17 13:09 Freq: DAILY Status: Active Target: Protocol: Activity Type Activity Date Activity User E-Sign Co-Sign Detail Recorded Client Recorded Date Recorded By Document 09/25/17 11:40 [id number] 09/25/17 11:40 [id number] 09/25/17 11:40 PMRU Outcome: Respiratory Does Patient Have a Trach No Outcome/Goals Maintain/ Improve O2 Sat per MD Order Maintain/ Improve Activity Tolerance Prevent Pneumonia/ Atelectasis Progression Toward Outcome/Goals Progressing Safety- Improve/Maintain Start: 09/21/17 13:09 Freq: DAILY Status: Active Target: Protocol: Activity Type Activity Date Activity User E-Sign Co-Sign Detail Recorded Client Recorded Date Recorded By Document 09/25/17 11:40 [id number] [email or web address] 09/25/17 11:40 [id number] 09/25/17 11:40 PMRU Outcome: Safety Outcome/Goals Remain Free of Injury or Harm Cooperates with Safety Measures for Least Restrictive Environment Prevent Falls/ Injury Progression Toward Outcome/Goals Progressing Outcome/Goals Met Comment PA in place Medicine Note: Length of Stay: 2 days Anticipated Discharge Destination: Home Tentative Discharge Date: 09/27/16 Discharged to: Home
[2017-09-25] MEDS ORDERED: Iohexol 300* (CONTRAST) 10 ML SDV IV ONE (16:07)
--- NOTE | 2017-09-25 16:37 | PN ---
Progress Note - Progress Note Date of Service: 09/25/17 Note: Nba visited. He was discussed in interdisciplinary team rounds. He was seen by Dr. Mendosa. She has ordered a CTof chest/abd/pelvis with contrast to evaluate liver lesion to see if biopsy can be done from liver to avoid bronch. Patient has severe COPD, and had difficulty weaning from vent in past. He continues to decline counselling for drug abuse Current Medications Acetaminophen (Tylenol Tab*) 650 mg PO Q6H PRN PRN Reason: FEVER > 101 Last Admin: 09/23/17 19:28 Dose: 650 mg Al Hydrox/Mg Hydrox/Simethicone (Maalox Plus*) 30 ml PO Q6H PRN PRN Reason: INDIGESTION Albuterol (Ventolin Hfa Inhaler*) 2 puff INH Q4H PRN PRN Reason: SOB/WHEEZING Last Admin: 09/23/17 20:53 Dose: 2 puff Aspirin (Aspirin Ec Low Dose*) 81 mg PO DAILY [facility] Last Admin: 09/25/17 09:04 Dose: 81 mg Atorvastatin Calcium (Lipitor*) 40 mg PO 1700 [facility] Last Admin: 09/24/17 16:57 Dose: 40 mg Bisacodyl (Dulcolax Supp*) 10 mg [place] DAILY PRN PRN Reason: CONSTIPATION Device (Tiotropium Inhaler Device*) 1 each .SEE ORDER .USE w/ SPIRIVA CAPS [facility] Last Admin: 09/23/17 08:13 Dose: 1 each Docusate Sodium (Colace Cap*) 100 mg PO BID [facility] Last Admin: 09/25/17 09:05 Dose: Not Given Famotidine (Pepcid Tab*) 20 mg PO DAILY [facility] Last Admin: 09/25/17 09:04 Dose: 20 mg Heparin Sodium (Porcine) (Heparin Vial(*)) 5,000 units SUBCUT Q8HR [facility] Last Admin: 09/25/17 14:33 Dose: 5,000 units Mometasone Furoate/Formoterol Fumar (Dulera 200/5 Mdi*) 2 puff INH BID [facility] Last Admin: 09/25/17 09:05 Dose: 2 puff Prednisone (Deltasone Tab*) 10 mg PO DAILY [facility] Stop: 09/28/17 23:55 Last Admin: 09/25/17 09:04 Dose: 10 mg Prednisone (Deltasone Tab*) 5 mg PO DAILY [facility] Stop: 10/03/17 23:55 Senna (Senokot Tab*) 2 tab PO BEDTIME PRN PRN Reason: CONSTIPATION Tiotropium [place] (Spiriva Cap.Inh*) 1 cap INH DAILY [facility] Last Admin: 09/25/17 09:03 Dose: 1 cap Vital Signs Temp Pulse Resp BP Pulse Ox 98.1 F 85 20 144/97 95 09/25/17 15:16 09/25/17 15:16 09/25/17 15:58 09/25/17 15:16 09/25/17 15:59 EXAM: GEN: No acute distress. Alert LUNGS: Clear bilaterally. HEART: Regular rhythm ABDOMEN: Active bowel sounds. Soft, nontender, and nondistended. EXTREMITIES: Tone normal NEUROLOGICAL EXAM: Upper and lower extremities, motor 5/5 bilaterally. ASSESSMENT/PLAN: 1 . Encephalopathy and stroke. Baby aspirin/Lipitor. Neurology follow up after discharge. May have been caused by cocaine use. Refuses drug counselling 2. Acute respiratory failure and COPD. Continue with his current medications. Incentive spirometer. Continue with steroid taper by halving dose every 5 days. 3. Acute kidney injury. Follow 4. Mass in his right lung, left adrenal, and possible liver. As above, CT scan today. Treatment depends on the diagnosis/staging. 5. History of substance abuse. He declines consultation with Psychiatry right now or antidepressants. He says that he is done with drugs and is not interested in drug rehab. 6. DVT prophylaxis. Continue subcutaneous heparin. 7. Advance directives. He desires full code. He says his girlfriend will be his healthcare proxy. 8. Hypertension. The patient reports being on amlodipine 10 mg daily prior to admission. Will resume. 9. Hepatitis C: LFTs stable
[2017-09-25] MEDS: Atorvastatin* 40 MG TAB PO SCH (17:00)
--- NOTE | 2017-09-25 17:34 | RAD ---
INDICATION: Lung mass and liver lesion. COMPARISON: September 16, 2017 chest radiograph and September 11, 2017 CT. TECHNIQUE: Multidetector CT images were obtained from the lung apices to the ischial tuberosities with 112 mL Omnipaque 300 IV contrast. Oral contrast administered. CHEST REPORT: Severe emphysema most marked at the upper lung zones. 4.1 x 2.6 cm RIGHT hilar mass with associated stenosis of the anterior segmental bronchus of the RIGHT upper lobe. Negative for additional focal pulmonary lesions. Negative for pleural effusions. 2.6 cm short axis RIGHT suprahilar lymph node. 1.8 cm short axis subcarinal lymph node. Negative for cardiomegaly or pericardial effusion. Negative for suspicious thoracic osseous lesions. CHEST IMPRESSION: 1. 4.1 x 2.6 cm grossly unchanged RIGHT hilar mass with associated stenosis of the anterior segmental bronchus of the RIGHT upper lobe. 2. RIGHT hilar and mediastinal lymphadenopathy without gross change. 3. Advanced emphysema. ABDOMEN PELVIS REPORT: Decreased density of the liver consistent with fatty infiltration. Small calcified granuloma at the dome of the RIGHT hepatic lobe. Suggestion of subtle focal peripherally enhancing hepatic lesions at the LEFT medial and RIGHT anterior hepatic segments reference images 19, 23, 24, and 26 of 86. Dominant 2.4 cm maximum dimension lesion at the junction of the RIGHT anterior and LEFT medial hepatic segments reference image 19. Negative for biliary dilatation. No CT abnormality of the gallbladder, pancreas, spleen. Negative for CT abnormality of the upper GI, small bowel, or infra cecal appendix. Sigmoid: Diverticulosis without findings of diverticulitis. Negative for ascites. Fat-containing umbilical hernia without inflammatory change. Normal RIGHT adrenal gland. 2.8 x 3.5 cm LEFT adrenal nodule isointense with skeletal muscle. Symmetric nephrograms. No suspicious focal renal lesions or hydronephrosis. Unremarkable nondilated ureters. Significantly distended urinary bladder without additional CT abnormality. Coarse calcifications at the prostate. Symmetric seminal vesicles. Peripancreatic, celiac axis, and periaortic and retrocrural lymphadenopathy. Dominant RIGHT retrocrural lymph node measures 1.4 cm short axis. Peripancreatic lymph node measures 2.0 cm short axis. Dominant LEFT para-aortic 1.8 cm short axis lymph node posterior to the LEFT renal vein. Negative for aneurysm of the abdominal aorta or iliac arteries with moderate calcific plaque. Physiologic distention of the IVC. Negative for suspicious osseous lesions. ABDOMEN PELVIS IMPRESSION: 1. Multiple subtle hepatic lesions suspicious for metastasis given the clinical context. Absence of IV contrast limits comparison with the prior exam. 2. 3.5 cm LEFT adrenal mass without change. 3. Retroperitoneal lymphadenopathy without significant change. 4. Significantly distended urinary bladder; correlate clinically for urinary retention. Negative for hydronephrosis.
--- NOTE | 2017-09-25 21:22 | CONS ---
PULMONARY CONSULTATION REPORT: DATE OF CONSULT: 09/25/17. REASON FOR CONSULTATION: Evaluation of abnormal CT chest. HISTORY OF PRESENT ILLNESS: The patient is a 66-year-old male, former smoker with history of COPD, drug abuse with drug screen positive for opioids and marijuana, who was brought into the hospital on 09/11/17 for altered mental status. The patient was found to be unresponsive at home with O2 sats in 70s, and tachycardic. The patient was intubated and was brought into the emergency room, was found to be hypotensive with systolic blood pressure in the 70s, was placed on pressors. The patient also received Narcan. He was admitted to ICU, and was treated empirically with antibiotics, steroids, and supportive care. He was also noted to have concern with anoxic encephalopathy and possible stroke and was seen by Neurology. CTA of the head and brain CT showed hypodense cerebellar lesions. He had CT scan of the brain on 09/14/17, which showed bilateral cerebellar infarcts, which were not seen on 09/11/17. EEG was consistent with encephalopathy. He also had acute kidney injury that he recovered from. He was extubated and was transitioned to BiPAP. He has a history of chronic COPD on 2 L home O2. Further evaluation included CT scan of the chest, abdomen and pelvis. I personally reviewed the images and with the patient today. The patient noted to have right hilar mass along with mediastinal lymphadenopathy and questionable liver mass. He also noted to have left adrenal mass and hernia. The patient had MRI of the brain on 09/20/17, which showed subacute bilateral cerebellar infarcts, which were improving on CT of the brain from 09/20/17. Echo showed mild LVH, hyperdynamic left ventricle, diastolic dysfunction and no patent foramen ovale or vegetations. He was independent with activities of daily living, had a fall on 09/19/17 while in the hospital. He was subsequently discharged to rehab for physical therapy given concern with recent CVA. The patient was seen and examined at bedside. Pulmonary consultation was requested for evaluation of abnormality noted on CT chest. The patient reports feeling better and close to his baseline. The patient denies any symptoms at this time. 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 He quit smoking 3 years ago. He denies alcohol abuse. He uses cocaine and marijuana, had smoked cocaine recently. PAST MEDICAL HISTORY: 1. COPD, home O2 on 2 liters. 2. Hepatitis C. 3. Hypertension. PAST SURGICAL HISTORY: 1. Hernia repair. 2. Left parotid excision. MEDICATIONS: 1. Tylenol 650 mg q.6 hours p.r.n. 2. Albuterol 2 puffs q.4 hours. 3. Aspirin 81 mg daily. 4. Lipitor 40 mg daily. 5. Pepcid 20 mg daily. 6. Heparin 5000 units q.8 p.r.n. 7. Dulera 200/5 two puffs b.i.d. 8. Nicotine patch 14 mg. 9. Prednisone taper started on 09/19/17 after recent hospitalization. 10. Spiriva 1 cap daily. ALLERGIES: FLOMAX. FAMILY HISTORY: Father with hypertension at 94. Mother of unknown cancer at age of 58. SOCIAL HISTORY: The patient is a former smoker, quit 3 years ago. No alcohol abuse, lives in a trailer. He smokes marijuana and cocaine intermittently. REVIEW OF SYSTEMS: All 14-systems reviewed and as per HPI. PHYSICAL EXAM: The patient is in chair, in no apparent distress. Vital Signs: Temperature 98.3, heart rate 77 beats per minute, respiratory rate 22 per minute , O2 sat 95% on room air, blood pressure 139/78. HEENT: Pupils equal, reactive to light, mucous membranes moist. Lungs: Poor air entry bilaterally, scattered rhonchi. No accessory muscle use. Cardiovascular: S1 and S2 present , regular. Abdomen: Soft, nontender, nondistended. Bowel sounds present. Extremities: No cyanosis or edema. Skin: No rashes or bruits. Neuro: No focal deficits. DIAGNOSTIC STUDIES/LAB DATA: Sodium 140, potassium 3.9, chloride 108, bicarb 26 , BUN 25, creatinine 0.9, calcium 9.1. LFTs elevated at 83 and 203. Total protein 6.3. Influenza A and B negative. Last blood gas analysis from showed compensated respiratory acidosis with pCO2 of 51, pO2 of 70, pH of 7.39. WBC count was 7.6, hemoglobin 14.8, hematocrit 45, platelet count 190. CT scan of the chest as described above in HPI from 09/11/17. Repeat CT of the chest with contrast was ordered and is pending at this time. IMPRESSION AND RECOMMENDATIONS: 66-year-old male, former smoker with history of hepatitis C, admitted for altered mental status, found to be hypoxemic, hypotensive on admission, also with acute chronic obstructive pulmonary disease exacerbation and hypercapnic respiratory failure, status post extubation. The patient is noted to have right hilar mass measuring 2.8 x 2.6 cm along with enlarged hilar and mediastinal nodes. The patient also with multiple enlarged retrocrural lymph nodes. The patient also has with adrenal mass measuring 3 x 2.7 cm, ill-defined 2 x 2.5 cm density in the right hepatic lobe. Given smoking history, concern is there for malignancy with the right hilar mass. The patient has a history of hepatitis C. The patient will need CT of the chest, abdomen and pelvis with IV contrast for further evaluation of the liver lesion. The patient reports anesthesia complication in the past when he was having hernia repair, which sounded more like postop respiratory failure and inability to be extubated postoperatively given underlying severe chronic obstructive pulmonary disease. If he has the left adrenal mass and liver lesion, they are unable to biopsy with minimal risk for complications than putting him through anesthesia for lung biopsy. The liver lesion if seen better on CT chest with contrast, it might be amenable to ultrasound guided biopsy. Depending upon the CT results, will discuss with Interventional Radiology regarding access of liver lesion versus adrenal lesion or one of the retroperitoneal lymph nodes. If he could not get diagnosis through any of these modalities, will then schedule the patient for bronchoscopy. Above recommendations were discussed in detail with the patient and also with Dr. Mcdaniel, who is covering the patient while in [facility]. Thank you for allowing me to participate in the care of your patient. Will follow up with you. [id number]/[facility] #: [id number] ESE
[2017-09-26] MEDS: Heparin VIAL(*) 5000 UNITS/ML VIAL (FIVE THOUSAND) SUBCUT SCH ×2 (05:23→14:31)
[2017-09-26] MEDS: Aspirin EC Low Dose* 81 MG TAB.EC PO SCH (08:53)
[2017-09-26] MEDS: Docusate CAP* 100 MG PO SCH ×3 (08:53→19:05)
[2017-09-26] MEDS: amLODIPine TAB* 5 MG PO SCH (08:53)
[2017-09-26] MEDS: Tiotropium CAP.INH* CAP.INH/18 MCG (USE ORDER SET !) INH SCH (08:53)
[2017-09-26] MEDS: predniSONE TAB* 10 MG PO SCH (08:54)
[2017-09-26] MEDS: Famotidine TAB* 20 MG PO SCH (08:54)
[2017-09-26] MEDS: Mometasone/Formoter 200/5 MDI INH SCH ×2 (08:56→20:57)
[2017-09-26] MEDS: Atorvastatin* 40 MG TAB PO SCH (16:59)
--- NOTE | 2017-09-26 18:25 | PN ---
Progress Note - Progress Note Date of Service: 09/26/17 - Pulm f/u note Note: Pt seen and examined at bedside. Pt denies any complaints. Pt reports that he is awaiting d/c tomorrow. Is participating in PT Active Medications Generic Name Dose Route Start Last Admin Trade Name Freq PRN Reason Stop Dose Admin Acetaminophen 650 mg 09/21/17 11:40 09/23/17 19:28 Tylenol Tab* PO 650 mg Q6H PRN Administration FEVER > 101 Al Hydrox/Mg Hydrox/Simethicone 30 ml 09/21/17 11:40 Maalox Plus* PO Q6H PRN INDIGESTION Albuterol 2 puff 09/21/17 23:32 09/23/17 20:53 Ventolin Hfa Inhaler* INH 2 puff Q4H PRN Administration SOB/WHEEZING Amlodipine Besylate 5 mg 09/26/17 09:00 09/26/17 08:53 Norvasc Tab* PO 5 mg DAILY [facility] Administration Aspirin 81 mg 09/22/17 09:00 09/26/17 08:53 Aspirin Ec Low Dose* PO 81 mg DAILY [facility] Administration Atorvastatin Calcium 40 mg 09/21/17 17:00 09/26/17 16:59 Lipitor* PO 40 mg 1700 [facility] Administration Bisacodyl 10 mg 09/21/17 11:40 Dulcolax Supp* [place] DAILY PRN CONSTIPATION Device 1 each 09/21/17 12:00 09/23/17 08:13 Tiotropium Inhaler Device* .SEE ORDER 1 each .USE w/ SPIRIVA CAPS [facility] Administration Docusate Sodium 100 mg 09/21/17 21:00 09/26/17 08:54 Colace Cap* PO Not Given BID [facility] Famotidine 20 mg 09/22/17 09:00 09/26/17 08:54 Pepcid Tab* PO 20 mg DAILY [facility] Administration Mometasone Furoate/Formoterol Fumar 2 puff 09/21/17 21:00 09/26/17 08:56 Dulera 200/5 Mdi* INH 2 puff BID [facility] Administration Prednisone 10 mg 09/24/17 09:00 09/26/17 08:54 Deltasone Tab* PO 09/28/17 23:55 10 mg DAILY [facility] Administration Prednisone 5 mg 09/29/17 09:00 Deltasone Tab* PO 10/03/17 23:55 DAILY [facility] Senna 2 tab 09/21/17 11:40 Senokot Tab* PO BEDTIME PRN CONSTIPATION Tiotropium [place] 1 cap 09/22/17 09:00 09/26/17 08:53 Spiriva Cap.Inh* INH 1 cap DAILY [facility] Administration Vital Signs Temp Pulse Resp BP Pulse Ox 98.2 F 44 26 128/64 93 09/26/17 15:41 09/26/17 15:41 09/26/17 15:41 09/26/17 15:41 09/26/17 17:08 O/E: Pt in NAD HEENT: PERRLA, No JVD Lungs: Clear to auscultation b/l, diminished air entry b/l CVS: S1, S2+ Abd: Soft, BS+ Ext: No edema Skin: No rash Laboratory Last Values WBC 7.6 10^3/ul (3.5-10.8) 09/23/17 11:42 RBC 4.76 10^6/ul (4.0-5.4) 09/23/17 11:42 Hgb 14.8 g/dl (14.0-18.0) 09/23/17 11:42 Hct 45 % (42-52) 09/23/17 11:42 MCV 95 fL (80-94) H 09/23/17 11:42 MCH 31 pg (27-31) 09/23/17 11:42 MCHC 33 g/dl (31-36) 09/23/17 11:42 RDW 14 % (10.5-15) 09/23/17 11:42 Plt Count 190 10^3/ul (150-450) 09/23/17 11:42 MPV 9 um3 (7.4-10.4) 09/23/17 11:42 Neut % (Auto) 85.4 % (38-83) H 09/23/17 11:42 Lymph % (Auto) 8.8 % (25-47) L 09/23/17 11:42 [place] % (Auto) 3.9 % (1-9) 09/23/17 11:42 Eos % (Auto) 1.6 % (0-6) 09/23/17 11:42 Baso % (Auto) 0.3 % (0-2) 09/23/17 11:42 Absolute Neuts (auto) 6.5 10^3/ul (1.5-7.7) 09/23/17 11:42 Absolute Lymphs (auto) 0.7 10^3/ul (1.0-4.8) L 09/23/17 11:42 Absolute Monos (auto) 0.3 10^3/ul (0-0.8) 09/23/17 11:42 Absolute Eos (auto) 0.1 10^3/ul (0-0.6) 09/23/17 11:42 Absolute Basos (auto) 0 10^3/ul (0-0.2) 09/23/17 11:42 Absolute Nucleated RBC 0 10^3/ul 09/23/17 11:42 Nucleated RBC % 0 09/23/17 11:42 Sodium 140 mmol/L (133-145) 09/23/17 11:41 Potassium 3.9 mmol/L (3.5-5.0) 09/23/17 11:41 Chloride 108 mmol/L (101-111) 09/23/17 11:41 Carbon Dioxide 26 mmol/L (22-32) 09/23/17 11:41 Anion Gap 6 mmol/L (2-11) 09/23/17 11:41 BUN 25 mg/dL (6-24) H 09/23/17 11:41 Creatinine 0.91 mg/dL (0.67-1.17) 09/23/17 11:41 Est GFR ( Amer) 107.9 (>60) 09/23/17 11:41 Est GFR (Non-Af Amer) 83.9 (>60) 09/23/17 11:41 BUN/Creatinine Ratio 27.5 (8-20) H 09/23/17 11:41 Glucose 120 mg/dL (70-100) H 09/23/17 11:41 Calcium 9.1 mg/dL (8.6-10.3) 09/23/17 11:41 Total Bilirubin 0.60 mg/dL (0.2-1.0) 09/23/17 11:41 AST 83 U/L (13-39) H 09/23/17 11:41 ALT 203 U/L (7-52) H 09/23/17 11:41 Alkaline Phosphatase 40 U/L (34-104) 09/23/17 11:41 Total Protein 6.3 g/dL (6.4-8.9) L 09/23/17 11:41 Albumin 3.4 g/dL (3.2-5.2) 09/23/17 11:41 Globulin 2.9 g/dL (2-4) 09/23/17 11:41 Albumin/Globulin Ratio 1.2 (1-3) 09/23/17 11:41 CT chest abdomen/pelvis: Rt hilar mass, mediastinal and hilar adenoapthy, liver lesions, retroperitoneal lymph nodes and adrenal mass. I/R: 66 y o m former smoker with h/o COPD a/w AMS from home found to have hypercapnic and hypoxic resp failure also found to have cerebellar infarct. CT chest/abd showed Rt hilar mass, mediastinal and hilar adenopathy, liver lesions , adrenal mas Discussed with IR Dr Klein, liver lesion amneable to biopsy Pt not willing to have procedure while here He would want to schedule it as out pt Further recommendations pending biopsy results Will f/u in pulm clinic in 1 week
--- NOTE | 2017-09-26 20:05 | PN ---
Progress Note - Progress Note Date of Service: 09/26/17 Note: Nba was visited. Therapy notes read and reviewed. He is set for discharge in am. Dr. Mendosa wanted to arrange biopsy prior to discharge but the patient prefers after discharge. Given his history of non-compliance, this could be problematic. Current Medications Acetaminophen (Tylenol Tab*) 650 mg PO Q6H PRN PRN Reason: FEVER > 101 Last Admin: 09/23/17 19:28 Dose: 650 mg Al Hydrox/Mg Hydrox/Simethicone (Maalox Plus*) 30 ml PO Q6H PRN PRN Reason: INDIGESTION Albuterol (Ventolin Hfa Inhaler*) 2 puff INH Q4H PRN PRN Reason: SOB/WHEEZING Last Admin: 09/23/17 20:53 Dose: 2 puff Amlodipine Besylate (Norvasc Tab*) 5 mg PO DAILY [facility] Last Admin: 09/26/17 08:53 Dose: 5 mg Aspirin (Aspirin Ec Low Dose*) 81 mg PO DAILY [facility] Last Admin: 09/26/17 08:53 Dose: 81 mg Atorvastatin Calcium (Lipitor*) 40 mg PO 1700 [facility] Last Admin: 09/26/17 16:59 Dose: 40 mg Bisacodyl (Dulcolax Supp*) 10 mg [place] DAILY PRN PRN Reason: CONSTIPATION Device (Tiotropium Inhaler Device*) 1 each .SEE ORDER .USE w/ SPIRIVA CAPS [facility] Last Admin: 09/23/17 08:13 Dose: 1 each Docusate Sodium (Colace Cap*) 100 mg PO BID [facility] Last Admin: 09/26/17 19:05 Dose: Not Given Famotidine (Pepcid Tab*) 20 mg PO DAILY [facility] Last Admin: 09/26/17 08:54 Dose: 20 mg Mometasone Furoate/Formoterol Fumar (Dulera 200/5 Mdi*) 2 puff INH BID [facility] Last Admin: 09/26/17 08:56 Dose: 2 puff Prednisone (Deltasone Tab*) 10 mg PO DAILY [facility] Stop: 09/28/17 23:55 Last Admin: 09/26/17 08:54 Dose: 10 mg Prednisone (Deltasone Tab*) 5 mg PO DAILY [facility] Stop: 10/03/17 23:55 Senna (Senokot Tab*) 2 tab PO BEDTIME PRN PRN Reason: CONSTIPATION Tiotropium [place] (Spiriva Cap.Inh*) 1 cap INH DAILY [facility] Last Admin: 09/26/17 08:53 Dose: 1 cap Vital Signs Temp Pulse Resp BP Pulse Ox 98.2 F 44 26 128/64 91 09/26/17 15:41 09/26/17 15:41 09/26/17 15:41 09/26/17 15:41 09/26/17 19:17 EXAM: LUNGS: Clear bilaterally. HEART: Regular rhythm ABDOMEN: Active bowel sounds. Soft, nontender, and nondistended. EXTREMITIES: Tone normal NEUROLOGICAL EXAM: Upper and lower extremities, motor 5/5 bilaterally. ASSESSMENT/PLAN: 1 . Encephalopathy and stroke. Baby aspirin/Lipitor. Neurology follow up after discharge. Likely caused by cocaine use. Refuses drug counselling 2. Acute respiratory failure and COPD. Continue with his current medications. Incentive spirometer. Continue with steroid taper by halving dose every 5 days. 3. Acute kidney injury. Follow 4. Mass in his right lung, left adrenal, and possible liver. Will need to follow up with Dr. Mendosa to arrange biopsy. Treatment depends on the diagnosis /staging. 5. History of substance abuse. He declines consultation with Psychiatry right now or antidepressants. He says that he is done with drugs and is not interested in drug rehab. 6. DVT prophylaxis. Continue subcutaneous heparin. 7. Advance directives. He desires full code. He says his girlfriend will be his healthcare proxy. 8. Hypertension. The patient reports being on amlodipine 10 mg daily prior to admission. May have been benzepril. 9. Hepatitis C: LFTs stable
[2017-09-26] MEDS: Acetaminophen TAB* 325 MG PO PRN (20:57)
[2017-09-27 05:45] VITALS: BP 151/89
[2017-09-27] MEDS: amLODIPine TAB* 5 MG PO SCH (08:23)
[2017-09-27] MEDS: Spiriva Inhaler DEVICE* 1 EACH DEVICE SCH (08:23)
[2017-09-27] MEDS: Docusate CAP* 100 MG PO SCH ×2 (08:23→08:25)
[2017-09-27] MEDS: Aspirin EC Low Dose* 81 MG TAB.EC PO SCH (08:23)
[2017-09-27] MEDS: Famotidine TAB* 20 MG PO SCH (08:23)
[2017-09-27] MEDS: Mometasone/Formoter 200/5 MDI INH SCH (08:23)
[2017-09-27] MEDS: predniSONE TAB* 10 MG PO SCH (08:24)
[2017-09-27] MEDS: Tiotropium CAP.INH* CAP.INH/18 MCG (USE ORDER SET !) INH SCH (08:24)
--- NOTE | 2017-09-27 09:42 | PN ---
Progress Note - Progress Note Date of Service: 09/27/17 Note: Pt seen and examined at bedside this am. Pt ready to be d/shelley. Denied any new complaints Active Medications Generic Name Dose Route Start Last Admin Trade Name Freq PRN Reason Stop Dose Admin Acetaminophen 650 mg 09/21/17 11:40 09/26/17 20:57 Tylenol Tab* PO 650 mg Q6H PRN Administration FEVER > 101 Al Hydrox/Mg Hydrox/Simethicone 30 ml 09/21/17 11:40 Maalox Plus* PO Q6H PRN INDIGESTION Albuterol 2 puff 09/21/17 23:32 09/23/17 20:53 Ventolin Hfa Inhaler* INH 2 puff Q4H PRN Administration SOB/WHEEZING Amlodipine Besylate 5 mg 09/26/17 09:00 09/27/17 08:23 Norvasc Tab* PO 5 mg DAILY ETELVINA Administration Aspirin 81 mg 09/22/17 09:00 09/27/17 08:23 Aspirin Ec Low Dose* PO 81 mg DAILY ETELVINA Administration Atorvastatin Calcium 40 mg 09/21/17 17:00 09/26/17 16:59 Lipitor* PO 40 mg 1700 ETELVINA Administration Bisacodyl 10 mg 09/21/17 11:40 Dulcolax Supp* NH DAILY PRN CONSTIPATION Device 1 each 09/21/17 12:00 09/27/17 08:23 Tiotropium Inhaler Device* .SEE ORDER 1 each .USE w/ SPIRIVA CAPS ETELVINA Administration Docusate Sodium 100 mg 09/21/17 21:00 09/27/17 08:25 Colace Cap* PO Not Given BID ETELVINA Famotidine 20 mg 09/22/17 09:00 09/27/17 08:23 Pepcid Tab* PO 20 mg DAILY ETELVINA Administration Mometasone Furoate/Formoterol Fumar 2 puff 09/21/17 21:00 09/27/17 08:23 Dulera 200/5 Mdi* INH 2 puff BID ETELVINA Administration Prednisone 10 mg 09/24/17 09:00 09/27/17 08:24 Deltasone Tab* PO 09/28/17 23:55 10 mg DAILY ETELVINA Administration Prednisone 5 mg 09/29/17 09:00 Deltasone Tab* PO 10/03/17 23:55 DAILY ETELVINA Senna 2 tab 09/21/17 11:40 Senokot Tab* PO BEDTIME PRN CONSTIPATION Tiotropium [place] 1 cap 09/22/17 09:00 09/27/17 08:24 Spiriva Cap.Inh* INH 1 cap DAILY ETELVINA Administration Vital Signs Temp Pulse Resp BP Pulse Ox 97.7 F 83 18 151/89 96 09/27/17 04:52 09/27/17 04:52 09/27/17 08:00 09/27/17 04:52 09/27/17 08:00 O/E: Pt in NAD HEENT: PERRLA, no JVD Lungs: Dimnnished air entry at bases, scaterred rhonchi CVS: S1, S2+ Abd: Soft, BS+ Ext: No edema Skin: No rash or bruise Laboratory Tests 09/23/17 09/23/17 11:41 11:42 WBC 7.6 RBC 4.76 Hgb 14.8 Hct 45 MCV 95 H MCH 31 MCHC 33 RDW 14 Plt Count 190 MPV 9 Neut % (Auto) 85.4 H Lymph % (Auto) 8.8 L [place] % (Auto) 3.9 Eos % (Auto) 1.6 Baso % (Auto) 0.3 Absolute Neuts (auto) 6.5 Absolute Lymphs (auto) 0.7 L Absolute Monos (auto) 0.3 Absolute Eos (auto) 0.1 Absolute Basos (auto) 0 Absolute Nucleated RBC 0 Nucleated RBC % 0 Sodium 140 Potassium 3.9 Chloride 108 Carbon Dioxide 26 Anion Gap 6 BUN 25 H Creatinine 0.91 Est GFR ( Amer) 107.9 Est GFR (Non-Af Amer) 83.9 BUN/Creatinine Ratio 27.5 H Glucose 120 H Calcium 9.1 Total Bilirubin 0.60 AST 83 H ALT 203 H Alkaline Phosphatase 40 Total Protein 6.3 L Albumin 3.4 Globulin 2.9 Albumin/Globulin Ratio 1.2 66 y o m with h/o Hep C, COPD on home O2 a/w AMS, hypercapnic resp failure, CVA also found to have rt hilar mass, mediastinal and retroperitoneal lymphadenopathy, multiple liver lesions, adrenal mass concerning for metastatic disease U/S guided liver biopsy is low risk procedure with less complications Pt declined biopsy as inpt He has appt to f/u with me next visit Will set up procedure through IR next week if pt agreeable Pt aware of findings and risk for disease progression He has completed PT for recent CVA Resp status stable D/c home today
--- NOTE | 2017-09-28 20:43 | DS ---
CC: Dr. Mendosa * DISCHARGE SUMMARY: DATE OF ADMISSION: 09/21/17 DATE OF DISCHARGE: 09/27/17 DISCHARGE DIAGNOSES: 1. Bilateral ischemic cerebellar stroke. 2. Respiratory failure with anoxic encephalopathy. 3. Chronic obstructive pulmonary disease. 4. Hepatitis C. 5. History of substance abuse. 6. Liver mass with left adrenal mass. 7. Hypertension. HISTORY OF ILLNESS AND HOSPITAL COURSE: For a complete history of the events leading up to his rehab stay, please see the history and physical dictated by Dr. Lily French on 09/21/17. While on the rehab unit, the patient was advised to consider counseling for substance abuse. The patient continued to decline all efforts at counseling or treatment with antidepressants. The patient reported he was not going to use illegal substances again after discharge. The patient had gradual improvement in his cognitive status. His respiratory status remained stable. He was on a prednisone taper while on the rehab unit for his acute respiratory failure. As far as the mass in the patient 's lung, liver, and adrenals, this was discovered during his acute hospital stay. He was seen by Dr. Mendosa on 09/25/17. Dr. Mendosa, given his history of COPD and respiratory failure, did not wish to do bronchoscopy but wanted to try to see if the liver mass was amenable to biopsy. A CAT scan of his chest, abdomen, and pelvis with contrast was done. It appeared that the mass in his liver was amenable to biopsy by Interventional Radiology. The patient, however , preferred to have the biopsy done after discharge and not during his hospital stay. He will return in a week to meet with Dr. Mendosa to arrange the ultrasound-guided liver biopsy. The patient otherwise was medically stable. The patient worked with physical therapy, occupational therapy, and speech therapy while on the rehab unit. Speech Therapy felt that he was at his baseline cognitively and did not require further speech therapy. With physical therapy at the time of admission, the patient required min assist to do a transfer. He was contact guard to ambulate about 150 feet. With occupational therapy at the time of admission, the patient required supervision for upper body dressing, contact guard for lower body dressing, contact guard for bathing , contact guard for toileting. By the time of discharge, the patient was transferring independently. He was independent ambulating 150 feet. He could go up and down 5 steps. The patient was independent with activities of daily living. The patient was discharged home, 09/27/17. DISCHARGE DIET: Regular. DISCHARGE MEDICATIONS: Included: 1. Albuterol inhaler 2 puffs every 4 hours as needed. 2. Aspirin 81 mg daily. 3. Lipitor 40 mg daily. 4. Pepcid 20 mg daily. 5. Prednisone 5 mg daily for 5 days. 6. Spiriva 1 capsule inhaled daily. 7. Symbicort 160/4.5 two puffs inhaled twice daily. 8. Lotensin 10 mg daily. SERVICES AFTER DISCHARGE: The patient did not require any home services. FOLLOWUP: With Dr. Estefany Silva in [place] as well as with Dr. Mendosa in 1 week to discuss the biopsy. [id number]/[facility] #: [id number] ESE
[2017-09-29] MEDS ORDERED: predniSONE TAB* 5 MG PO SCH (09:00)
== END 2017-09-27 10:45 | disposition home or self-care (01) | DRG 58 ==
LOC: PMRU 11:19
PROVIDERS: ADMIT Physical Medicine & Rehabilitation; ATTEND Physical Medicine & Rehabilitation
PROC: F07Z5ZZ Bed Mobility Treatment (ICD-10-PCS; principal; 2017-09-21)
PROC: F07Z9ZZ Gait Training/Functional Ambulation Treatment (ICD-10-PCS; 2017-09-21)
PROC: F07Z8ZZ Transfer Training Treatment (ICD-10-PCS; 2017-09-21)
PROC: F08Z0ZZ Bathing/Showering Techniques Treatment (ICD-10-PCS; 2017-09-21)
PROC: F08Z1ZZ Dressing Techniques Treatment (ICD-10-PCS; 2017-09-21)
PROC: F08Z3ZZ Feeding/Eating Treatment (ICD-10-PCS; 2017-09-21)
DX: I69.398 Other sequelae of cerebral infarction (principal); G93.49 Other encephalopathy; Z99.81 Dependence on supplemental oxygen; R16.0 Hepatomegaly, not elsewhere classified; J44.9 Chronic obstructive pulmonary disease, unspecified; B19.20 Unspecified viral hepatitis C without hepatic coma; F11.10 Opioid abuse, uncomplicated; F12.10 Cannabis abuse, uncomplicated; I10 Essential (primary) hypertension; Z79.1 Long term (current) use of non-steroidal anti-inflammatories (NSAID); Z79.82 Long term (current) use of aspirin; Z79.899 Other long term (current) drug therapy; Z87.891 Personal history of nicotine dependence; Z88.8 Allergy status to other drugs, medicaments and biological substances; Z79.52 Long term (current) use of systemic steroids; Z82.49 Family history of ischemic heart disease and other diseases of the circulatory system; Z80.9 Family history of malignant neoplasm, unspecified
CPT/HCPCS: 36415; 71260; 74177; 80053; 85025; 94640; 94760; A9270-GY; J1644; J7512; Q9967